=== PATIENT | female | born 1955 | race Caucasian/White ===

== ENCOUNTER 2023-07-05 16:48 | Inpatient (IN) ==
--- NOTE | 2023-07-05 17:07 | ED Triage Note ---
Date of Service July 05, 2023 History of Present Illness This patient was briefly evaluated while in triage. An abbreviated physical exam was performed. This patient is a 68-year-old Female who presents to the ED for evaluation of osteomyelitis. She was referred by Dr. Kelly. According to him, she had an x- ray of the right second toe showing osteomyelitis. She has failed Keflex and is currently on Levaquin/Bactrim. Patient states this has been ongoing for over a month. She is a diabetic. Physical Exam VITALS: Vitals are noted on the nurse's note and reviewed by myself. GENERAL: This is a 68-year-old for, in no acute distress, well-developed well- nourished. SKIN: Right foot not visualized in triage. HEART: Regular rate and rhythm without murmurs gallops or rubs. LUNGS: Clear to auscultation bilaterally without wheezes, rales or rhonchi. NEURO: Patient was alert and oriented to person place and time. Initial orders for labs and / or imaging were placed and patient was placed in the waiting area until a bed is available. Please see further documentation for the full ED course.
--- NOTE | 2023-07-05 17:39 | Emergency Department Note ---
Impression & Plan Osteomyelitis of right foot, Adrenal insufficiency, Factor V Leiden, Chronic anticoagulation ED Provider Note NAME: ELMER BENNETT AGE: 68 SEX: F : 1955 ARRIVES VIA: Walk-In INFORMANT: Patient, ED PROVIDER(S): Phani Rodrigues MD CHIEF COMPLAINT: Failed outpatient osteomyelitis MEDICAL DECISION MAKING: Patient presents at the behest of her accounting bookkeeper Dr. Kelly due to concern for failed outpatient osteomyelitis treatment. IV was established blood work was obtained patient was ordered vancomycin and cefepime. Procalcitonin as well as wound cultures also obtained. Lactate also obtained. Patient is awake and at 13 mild anemia hemoglobin of 11 with normal platelet count. The patient's kidney function with a creatinine 1.34. No prior for comparison. Lactate is normal. Procalcitonin is not elevated. I did speak with Dr. Kelly who stated the patient will likely have a toe amputation completed on Saturday. I did speak the on-call hospitalist service Dr. Schwartz and the patient was admitted to the medicine service. Discussion w/ other healthcare providers: Dr. Kelly with podiatry Dr. Schwartz with inpatient medicine Prior /Outside records reviewed: None Differential diagnosis: Osteomyelitis, cellulitis, necrotizing fasciitis, abscess, fracture, sprain, strain among others were considered Diagnostics, as interpreted by me: ECG: None Cardiac monitoring: An order was placed for continuous cardiac monitoring. The monitor shows a rate of 92 with sinus rhythm. Patient was placed on pulse oximetry Medical decision rules: None Imaging studies: I informally interpreted the patient's right foot x-ray which does not show obvious acute fracture with formal report to follow. HPI: Presents due to concern for failed outpatient osteomyelitis treatment. Patient denies any chest pains but does have chronic shortness of breath secondary to her weight. The patient states that she had been on outpatient antibiotics for approximately 20 days and recently switched yesterday but was seen by her accounting bookkeeper and was referred here for further evaluation treatment for failed outpatient treatment of osteomyelitis. Patient denies any fevers but has had some chills. Patient denies any vomiting or diarrhea. Patient states that she does have some chronic neuropathy but can still feel her toes. The patient states that she was seen earlier today and was able to have a swab that probe to the bone per patient. PAST MEDICAL HISTORY: Renal cell carcinoma, diabetes, factor V Leiden, DVT, adrenal insufficiency, HLD, HTN PAST SURGICAL HISTORY: Partial nephrectomy SOCIAL HISTORY: Denies alcohol tobacco use. Lives with family HOME MEDICATIONS: See Below ALLERGIES: See Below VITALS: See Below PHYSICAL EXAMINATION: GENERAL: NAD, non-toxic. BMI 65. Wearing glasses EYE EXAM: Normal conjunctiva. PERRL, no anisocoria and EOM's grossly intact w/o pain. OROPHARYNX: Moist mucus membranes, grossly normal dentition. NECK: Supple, no nuchal rigidity, no adenopathy, non-tender. No signs of meningismus. FROM of the neck with good chin to chest and neck extension. No stridor. LUNGS: Clear to auscultation. Normal chest wall mechanics. HEART: NSR, no MRG. ABDOMEN: Abdomen soft, non-tender, no masses, no rebound or guarding. BACK: No CVA TTP. SKIN: No rashes and no bruising. UPPER EXTREMITIES: Upper extremities are grossly normal. LOWER EXTREMITIES: Wound noted to the right second toe, no significant surrounding erythema, no fluctuance or active drainage. NEURO EXAM: A&O x3, cranial nerves II-XII grossly intact, normal speech, moves all 4 extremities. Past Med/Surg History Social History Smoking Status: Never smoker Preferred Language: Maltese Feels Safe at Home: Yes Allergies Allergies Allergy/AdvReac Type Severity Reaction Status Date / Time gluten Allergy Unknown Unknown Unverified 07/05/23 19:02 Home Meds Home Medications Medication Instructions Recorded Confirmed albuterol sulfate 90 mcg/actuation 2 puff inhalation .Q4-6H PRN Acute 07/05/23 07/05/23 aerosol inhaler Bronchospasm azelastine 137 mcg (0.1 %) nasal 1 spray intranasal BID 07/05/23 07/05/23 spray aerosol buspirone 10 mg tablet See Rx Instructions .Route .COMPLEX 07/05/23 07/05/23 cetirizine 10 mg tablet 10 mg PO DAILY 07/05/23 07/05/23 cholecalciferol (vitamin D3) 50 100 mcg PO DAILY 07/05/23 07/05/23 mcg (2,000 unit) tablet (Vitamin D3) ciprofloxacin HCl 500 mg tablet 500 mg PO BID 07/05/23 07/05/23 clomipramine 25 mg capsule 25 mg PO HS 07/05/23 07/05/23 famotidine 20 mg tablet 20 mg PO BID 07/05/23 07/05/23 furosemide 20 mg tablet 20 mg PO DAILY 07/05/23 07/05/23 gabapentin 300 mg capsule 300 mg PO TID 07/05/23 07/05/23 hydrocortisone 10 mg tablet 15 mg PO BID 07/05/23 07/05/23 insulin aspart U-100 100 unit/mL 0 - 50 unit subcut TID 07/05/23 07/05/23 subcutaneous solution (Novolog U-100 Insulin aspart) insulin degludec 100 unit/mL (3 30 unit subcut DAILY 07/05/23 07/05/23 mL) subcutaneous pen (Tresiba FlexTouch U-100 insulin) levothyroxine 175 mcg tablet 175 mcg PO QAM 07/05/23 07/05/23 lisinopril 40 mg tablet 40 mg PO DAILY 07/05/23 07/05/23 metoprolol tartrate 25 mg tablet 25 mg PO BID 07/05/23 07/05/23 omeprazole 40 mg capsule,delayed 40 mg PO DAILY 07/05/23 07/05/23 release potassium chloride 10 mEq 10 meq PO DAILY 07/05/23 07/05/23 tablet,extended release(part/cryst) semaglutide 0.25 mg or 0.5 mg (2 0.5 mg subcut WK 07/05/23 07/05/23 mg/3 mL) subcutaneous pen injector (Ozempic) simvastatin 40 mg tablet 40 mg PO HS 07/05/23 07/05/23 sulfamethoxazole 800 1 tab PO BID 07/05/23 07/05/23 mg-trimethoprim 160 mg tablet warfarin 2 mg tablet 2 mg PO DAILY 07/05/23 07/05/23 Results & Data (ED) Vital Signs Vital Signs - 24 hr 07/05/23 17:04 07/05/23 17:52 07/05/23 17:54 Temperature 36.8 C Temperature Source Temporal Artery Scan Pulse Rate 98 H 92 H 92 H Pulse Rate [Right Finger] Pulse Rate from SpO2 Sensor 93 H Pulse Rhythm [Right Finger] Pulse Strength [Right Finger] Respiratory Rate 19 15 Respiratory Effort / Characteristics Non-Labored Respiratory Depth Normal Respiratory Pattern Blood Pressure 148/66 H Blood Pressure [Right Arm] Blood Pressure Mean 93 Blood Pressure Mean [Right Arm] Blood Pressure Position [Right Arm] Pulse Oximetry 92 90 Oxygen Delivery Method Room Air Oxygen Flow Rate Sepsis Recent Fever Within 48 Hours No Sepsis New/Unexplained Change in Mental Status No Sepsis Action Taken by Nursing No Action Required Oxygen Flow Rate - Titration Pulse Oximetry Post Tiitration 07/05/23 17:55 07/05/23 18:00 07/05/23 18:01 Temperature Temperature Source Pulse Rate 93 H Pulse Rate [Right Finger] 92 H Pulse Rate from SpO2 Sensor 90 Pulse Rhythm [Right Finger] Regular Pulse Strength [Right Finger] Normal Respiratory Rate 30 H 26 H Respiratory Effort / Characteristics Non-Labored Spontaneous Respiratory Depth Normal Respiratory Pattern Regular Blood Pressure 152/74 H Blood Pressure [Right Arm] 143/88 H Blood Pressure Mean 99 Blood Pressure Mean [Right Arm] 106 Blood Pressure Position [Right Arm] Lying Pulse Oximetry 96 92 Oxygen Delivery Method Room Air Oxygen Flow Rate Sepsis Recent Fever Within 48 Hours Sepsis New/Unexplained Change in Mental Status Sepsis Action Taken by Nursing Oxygen Flow Rate - Titration Pulse Oximetry Post Tiitration 07/05/23 18:01 07/05/23 18:10 07/05/23 18:20 Temperature Temperature Source Pulse Rate 92 H 90 91 H Pulse Rate [Right Finger] Pulse Rate from SpO2 Sensor 93 H 90 91 H Pulse Rhythm [Right Finger] Pulse Strength [Right Finger] Respiratory Rate 21 24 19 Respiratory Effort / Characteristics Respiratory Depth Respiratory Pattern Blood Pressure Blood Pressure [Right Arm] Blood Pressure Mean Blood Pressure Mean [Right Arm] Blood Pressure Position [Right Arm] Pulse Oximetry 93 88 L 87 L Oxygen Delivery Method Room Air Room Air Oxygen Flow Rate Sepsis Recent Fever Within 48 Hours Sepsis New/Unexplained Change in Mental Status Sepsis Action Taken by Nursing Oxygen Flow Rate - Titration Pulse Oximetry Post Tiitration 07/05/23 18:24 07/05/23 18:30 07/05/23 18:31 Temperature Temperature Source Pulse Rate 87 90 Pulse Rate [Right Finger] Pulse Rate from SpO2 Sensor 85 89 Pulse Rhythm [Right Finger] Pulse Strength [Right Finger] Respiratory Rate 18 20 Respiratory Effort / Characteristics Respiratory Depth Respiratory Pattern Blood Pressure Blood Pressure [Right Arm] Blood Pressure Mean Blood Pressure Mean [Right Arm] Blood Pressure Position [Right Arm] Pulse Oximetry 87 L 100 97 Oxygen Delivery Method Room Air Nasal Cannula Nasal Cannula Oxygen Flow Rate 0 2 2 Sepsis Recent Fever Within 48 Hours Sepsis New/Unexplained Change in Mental Status Sepsis Action Taken by Nursing Oxygen Flow Rate - Titration 1.5 Pulse Oximetry Post Tiitration 98 07/05/23 18:31 07/05/23 18:40 07/05/23 18:50 Temperature Temperature Source Pulse Rate 94 H 91 H Pulse Rate [Right Finger] Pulse Rate from SpO2 Sensor 94 H 91 H Pulse Rhythm [Right Finger] Pulse Strength [Right Finger] Respiratory Rate 21 23 Respiratory Effort / Characteristics Respiratory Depth Respiratory Pattern Blood Pressure 149/70 H Blood Pressure [Right Arm] Blood Pressure Mean 110 Blood Pressure Mean [Right Arm] Blood Pressure Position [Right Arm] Pulse Oximetry 97 97 Oxygen Delivery Method Oxygen Flow Rate Sepsis Recent Fever Within 48 Hours Sepsis New/Unexplained Change in Mental Status Sepsis Action Taken by Nursing Oxygen Flow Rate - Titration Pulse Oximetry Post Tiitration 07/05/23 19:00 07/05/23 19:00 07/05/23 19:10 Temperature Temperature Source Pulse Rate 90 92 H Pulse Rate [Right Finger] Pulse Rate from SpO2 Sensor 92 H 91 H Pulse Rhythm [Right Finger] Pulse Strength [Right Finger] Respiratory Rate 23 28 H Respiratory Effort / Characteristics Respiratory Depth Respiratory Pattern Blood Pressure 155/68 H Blood Pressure [Right Arm] Blood Pressure Mean 108 Blood Pressure Mean [Right Arm] Blood Pressure Position [Right Arm] Pulse Oximetry 96 97 Oxygen Delivery Method Oxygen Flow Rate Sepsis Recent Fever Within 48 Hours Sepsis New/Unexplained Change in Mental Status Sepsis Action Taken by Nursing Oxygen Flow Rate - Titration Pulse Oximetry Post Tiitration 07/05/23 19:20 07/05/23 19:30 07/05/23 19:30 Temperature Temperature Source Pulse Rate 96 H 90 Pulse Rate [Right Finger] Pulse Rate from SpO2 Sensor 94 H 94 H Pulse Rhythm [Right Finger] Pulse Strength [Right Finger] Respiratory Rate 25 H 23 Respiratory Effort / Characteristics Respiratory Depth Respiratory Pattern Blood Pressure 150/74 H Blood Pressure [Right Arm] Blood Pressure Mean 113 Blood Pressure Mean [Right Arm] Blood Pressure Position [Right Arm] Pulse Oximetry 98 95 Oxygen Delivery Method Nasal Cannula Oxygen Flow Rate 2 Sepsis Recent Fever Within 48 Hours Sepsis New/Unexplained Change in Mental Status Sepsis Action Taken by Nursing Oxygen Flow Rate - Titration Pulse Oximetry Post Tiitration 07/05/23 19:40 07/05/23 19:50 07/05/23 20:00 Temperature Temperature Source Pulse Rate 96 H 95 H 98 H Pulse Rate [Right Finger] Pulse Rate from SpO2 Sensor 98 H 93 H 98 H Pulse Rhythm [Right Finger] Pulse Strength [Right Finger] Respiratory Rate 34 H 20 22 Respiratory Effort / Characteristics Respiratory Depth Respiratory Pattern Blood Pressure Blood Pressure [Right Arm] Blood Pressure Mean Blood Pressure Mean [Right Arm] Blood Pressure Position [Right Arm] Pulse Oximetry 88 L 92 94 Oxygen Delivery Method Nasal Cannula Oxygen Flow Rate 2 Sepsis Recent Fever Within 48 Hours Sepsis New/Unexplained Change in Mental Status Sepsis Action Taken by Nursing Oxygen Flow Rate - Titration Pulse Oximetry Post Tiitration 07/05/23 20:00 07/05/23 20:10 07/05/23 20:20 Temperature Temperature Source Pulse Rate 100 H 102 H Pulse Rate [Right Finger] Pulse Rate from SpO2 Sensor 99 H 101 H Pulse Rhythm [Right Finger] Pulse Strength [Right Finger] Respiratory Rate 24 18 Respiratory Effort / Characteristics Respiratory Depth Respiratory Pattern Blood Pressure 163/71 H Blood Pressure [Right Arm] Blood Pressure Mean 84 Blood Pressure Mean [Right Arm] Blood Pressure Position [Right Arm] Pulse Oximetry 95 93 Oxygen Delivery Method Oxygen Flow Rate Sepsis Recent Fever Within 48 Hours Sepsis New/Unexplained Change in Mental Status Sepsis Action Taken by Nursing Oxygen Flow Rate - Titration Pulse Oximetry Post Tiitration 07/05/23 20:30 07/05/23 20:31 07/05/23 20:31 Temperature Temperature Source Pulse Rate 97 H 99 H Pulse Rate [Right Finger] Pulse Rate from SpO2 Sensor 95 H 98 H Pulse Rhythm [Right Finger] Pulse Strength [Right Finger] Respiratory Rate 22 20 Respiratory Effort / Characteristics Respiratory Depth Respiratory Pattern Blood Pressure 155/59 H Blood Pressure [Right Arm] Blood Pressure Mean 84 Blood Pressure Mean [Right Arm] Blood Pressure Position [Right Arm] Pulse Oximetry 92 Oxygen Delivery Method Nasal Cannula Oxygen Flow Rate 2 Sepsis Recent Fever Within 48 Hours Sepsis New/Unexplained Change in Mental Status Sepsis Action Taken by Nursing Oxygen Flow Rate - Titration Pulse Oximetry Post Tiitration 07/05/23 20:40 07/05/23 20:50 07/05/23 21:00 Temperature Temperature Source Pulse Rate 99 H 99 H Pulse Rate [Right Finger] 111 H Pulse Rate from SpO2 Sensor 98 H 103 H Pulse Rhythm [Right Finger] Regular Pulse Strength [Right Finger] Normal Respiratory Rate 25 H 22 20 Respiratory Effort / Characteristics Non-Labored Spontaneous Respiratory Depth Normal Respiratory Pattern Blood Pressure Blood Pressure [Right Arm] 159/72 H Blood Pressure Mean Blood Pressure Mean [Right Arm] 101 Blood Pressure Position [Right Arm] Lying Pulse Oximetry 92 92 92 Oxygen Delivery Method Nasal Cannula Nasal Cannula Oxygen Flow Rate 2 2 Sepsis Recent Fever Within 48 Hours Sepsis New/Unexplained Change in Mental Status Sepsis Action Taken by Nursing Oxygen Flow Rate - Titration Pulse Oximetry Post Tiitration 07/05/23 21:00 07/05/23 21:01 07/05/23 21:10 Temperature Temperature Source Pulse Rate 101 H 103 H 100 H Pulse Rate [Right Finger] Pulse Rate from SpO2 Sensor 100 H Pulse Rhythm [Right Finger] Pulse Strength [Right Finger] Respiratory Rate 25 H 24 26 H Respiratory Effort / Characteristics Respiratory Depth Respiratory Pattern Blood Pressure 123/46 L Blood Pressure [Right Arm] Blood Pressure Mean 71 Blood Pressure Mean [Right Arm] Blood Pressure Position [Right Arm] Pulse Oximetry 93 Oxygen Delivery Method Oxygen Flow Rate Sepsis Recent Fever Within 48 Hours Sepsis New/Unexplained Change in Mental Status Sepsis Action Taken by Nursing Oxygen Flow Rate - Titration Pulse Oximetry Post Tiitration 07/05/23 21:20 07/05/23 21:30 07/05/23 21:40 Temperature Temperature Source Pulse Rate 102 H 106 H 117 H Pulse Rate [Right Finger] Pulse Rate from SpO2 Sensor 103 H Pulse Rhythm [Right Finger] Pulse Strength [Right Finger] Respiratory Rate 24 29 H 26 H Respiratory Effort / Characteristics Respiratory Depth Respiratory Pattern Blood Pressure 159/72 H Blood Pressure [Right Arm] Blood Pressure Mean 101 Blood Pressure Mean [Right Arm] Blood Pressure Position [Right Arm] Pulse Oximetry 93 Oxygen Delivery Method Oxygen Flow Rate Sepsis Recent Fever Within 48 Hours Sepsis New/Unexplained Change in Mental Status Sepsis Action Taken by Nursing Oxygen Flow Rate - Titration Pulse Oximetry Post Tiitration 07/05/23 21:50 07/05/23 21:52 07/05/23 22:00 Temperature Temperature Source Pulse Rate 110 H 107 H 114 H Pulse Rate [Right Finger] Pulse Rate from SpO2 Sensor Pulse Rhythm [Right Finger] Pulse Strength [Right Finger] Respiratory Rate 21 30 H Respiratory Effort / Characteristics Respiratory Depth Respiratory Pattern Blood Pressure Blood Pressure [Right Arm] Blood Pressure Mean Blood Pressure Mean [Right Arm] Blood Pressure Position [Right Arm] Pulse Oximetry 94 Oxygen Delivery Method Nasal Cannula Oxygen Flow Rate 2 Sepsis Recent Fever Within 48 Hours Sepsis New/Unexplained Change in Mental Status Sepsis Action Taken by Nursing Oxygen Flow Rate - Titration Pulse Oximetry Post Tiitration 07/05/23 22:10 Temperature Temperature Source Pulse Rate 112 H Pulse Rate [Right Finger] Pulse Rate from SpO2 Sensor Pulse Rhythm [Right Finger] Pulse Strength [Right Finger] Respiratory Rate 27 H Respiratory Effort / Characteristics Respiratory Depth Respiratory Pattern Blood Pressure Blood Pressure [Right Arm] Blood Pressure Mean Blood Pressure Mean [Right Arm] Blood Pressure Position [Right Arm] Pulse Oximetry 94 Oxygen Delivery Method Nasal Cannula Oxygen Flow Rate 2 Sepsis Recent Fever Within 48 Hours Sepsis New/Unexplained Change in Mental Status Sepsis Action Taken by Nursing Oxygen Flow Rate - Titration Pulse Oximetry Post Tiitration Home Medications Current Medication List: was personally reviewed by md Laboratory Data Attestation: I reviewed the patient's lab results. 07/05/23 18:03 07/05/23 18:03 Lab Results 07/05/23 07/05/23 07/05/23 Range/Units 18:03 18:05 21:46 WBC 13.52 H (4.8-10.8) K/ul RBC 3.77 L (4.20-5.40) M/uL Hgb 11.2 L (12.0-16.0) g/dl Hct 35.5 L (37.0-47.0) % MCV 94.2 (80.0-100.0) fL MCH 29.7 (25.0-34.0) pg MCHC 31.5 L (32.0-36.0) g/dL RDW Std Deviation 46.5 H (36.4-46.3) fL RDW Coeff of Milad 13.7 (11.5-14.5) % Plt Count 381 (130-400) K/uL MPV 9.1 L (9.4-12.4) fL Immature Gran % (Auto) 0.5 % Neut % (Auto) 79.3 % Lymph % (Auto) 9.1 % [place] % (Auto) 8.1 % Eos % (Auto) 2.5 % Baso % (Auto) 0.5 % Neut # (Auto) 10.71 H (1.40-6.50) K/uL Lymph # (Auto) 1.23 (1.20-3.40) K/uL [place] # (Auto) 1.10 H (0.11-0.59) K/uL Eos # (Auto) 0.34 (0.00-0.50) K/uL Baso # (Auto) 0.07 (0.00-0.20) K/uL Immature Gran # (Auto) 0.07 (0.01-0.20) K/uL PT 14.1 H (9.0-12.0) Seconds INR 1.3 H (0.9-1.1) APTT 26.5 (21.0-31.0) Seconds PTT Ratio 0.9 Sodium 134 L (136-145) mmol/L Potassium 4.6 (3.5-5.1) mmol/L Chloride 100 (98-107) mmol/L Carbon Dioxide 28 (21-32) mmol/L Anion Gap 6 (3-11) BUN 37 H (6-23) mg/dl Creatinine 1.34 H (0.6-1.2) mg/dl Est Cr Clr Drug Dosing 49.9 ml/min Est GFR ( Amer) 46.4 ml/min Est GFR (Non-Af Amer) 40.0 ml/min BUN/Creatinine Ratio 27.6 H (10-20) Glucose 143 H (70-99(Fasting)) mg/dl POC Glucose 171 H (70-99) mg/dl Lactate 1.6 (0.4-2.0) mmol/L Calcium 9.0 (8.6-10.3) mg/dl Total Bilirubin 0.2 (0.2-1.0) mg/dl AST 15 (13-39) U/L ALT 15 (7-52) U/L Alkaline Phosphatase 49 (34-104) U/L Total Protein 7.5 (6.0-8.3) gm/dl Albumin 3.6 (3.4-5.0) gm/dl Globulin 3.9 (2.5-4.0) gm/dl Albumin/Globulin Ratio 0.9 (0.9-2) Procalcitonin 0.12 (0-0.5) ng/ml Administered Medications Insulin Aspart (Insulin Aspart Per Unit Charge) 0 units SC ACHS LIBBY Stop: 08/04/23 20:59 Last Admin: 07/05/23 22:24 Dose: 3 units Documented By: HAIR SAMPLE MATCHER Co-signed By: Insulin Glargine (Lantus Per Unit Charge) 15 units SQ BID LIBBY Stop: 08/04/23 20:59 Last Admin: 07/05/23 22:23 Dose: 15 units Documented By: RONI Co-signed By: Discontinued Medications Vancomycin HCl 2,750 mg/ (Sodium Chloride) 555 mls @ 200 mls/hr IV NOW ONE Stop: 07/05/23 20:51 Last Infusion: 07/05/23 21:42 Dose: Infused Documented By: Admin: 07/05/23 18:29 Dose: 200 mls/hr Documented By: PARAG Cefepime HCl (Maxipime) 2,000 mg in 20 mls @ 5 mls/min IV NOW STA; Protocol Stop: 07/05/23 18:08 Last Admin: 07/05/23 18:29 Dose: 5 mls/min Documented By: PARAG Imaging Data Radiologist's Impression: Foot X-Ray 07/05/23 17:08 XR foot RT min 3V routine HISTORY: 68 years-old Female right second toe infection acute right foot pain COMPARISON: None TECHNIQUE: 3 views of the right foot FINDINGS: Demineralized appearance of the bones. Bipartite lateral hallux sesamoid. Limited exam secondary to overlying casting material. Chronic appearing fifth metatarsal fracture. Age-indeterminate likely chronic articular erosions involve the mid to lateral aspects of the first interphalangeal joint. Subtle bony defect involves the distal aspect of the second distal phalanx. Mild soft tissue swelling of the foot. IMPRESSION: 1. Limited exam secondary to overlying casting material. 2. Age-indeterminate osseous erosions of the first interphalangeal joint and second distal phalangeal tuft. Correlate clinically to exclude osteomyelitis. 3. Healed chronic fracture deformity of the fifth metatarsal. ACT 112: Negative or not required by law. The above report was generated using voice recognition software. It may contain grammatical, syntax or spelling errors. Electronically signed by: Bogdan Mullen M.D. 07/05/2023 6:58 PM Discharge Plan Visit Data Chief Complaint: Referred by Doctor Stated Complaint: SURGRY ON TOE, RT FOOT ED Provider: Phani Rodrigues Discharge Problem: Osteomyelitis of right foot, Adrenal insufficiency, Factor V Leiden, Chronic anticoagulation Patient Disposition: Admitted As Inpatient Discharge Instructions Interventions: ED Discharge Assessment Last Done: 07/05/23 22:10 Prescriptions Prescriptions: No Action levothyroxine 175 mcg tablet 175 mcg PO QAM cetirizine 10 mg tablet 10 mg PO DAILY ciprofloxacin HCl 500 mg tablet 500 mg PO BID Rx Instructions: Prescription was picked up on 07/04/23. Start Date 07/04/23 - End Date 07/11/23 sulfamethoxazole-trimethoprim 800-160 mg tablet 1 tab PO BID Rx Instructions: Prescription was picked up on 07/04/23. Start Date 07/04/23 - End Date 07/14/23 omeprazole 40 mg capsule,delayed release(DR/EC) 40 mg PO DAILY simvastatin 40 mg tablet 40 mg PO HS famotidine 20 mg tablet 20 mg PO BID buspirone 10 mg tablet See Rx Instructions .ROUTE .COMPLEX Rx Instructions: Take 10mg in the morning, 10mg in the afternoon and 20mg at bedtime warfarin 2 mg tablet 2 mg PO DAILY gabapentin 300 mg capsule 300 mg PO TID hydrocortisone 10 mg tablet 15 mg PO BID Rx Instructions: Takes 15 mg in the am and 5 mg HS azelastine 137 mcg (0.1 %) aerosol,spray 1 spray INTRANASAL BID albuterol sulfate 90 mcg/actuation HFA aerosol inhaler 2 puff INHALATION .Q4-6H PRN (Reason: Acute Bronchospasm) clomipramine 25 mg capsule 25 mg PO HS lisinopril 40 mg tablet 40 mg PO DAILY potassium chloride 10 mEq tablet,ER particles/crystals 10 meq PO DAILY metoprolol tartrate 25 mg tablet 25 mg PO BID cholecalciferol (vitamin D3) [Vitamin D3] 50 mcg (2,000 unit) Tablet 100 mcg PO DAILY insulin degludec [Tresiba FlexTouch U-100] 100 unit/mL (3 mL) insulin pen 30 unit SUBCUT DAILY Ozempic 0.25 mg or 0.5 mg (2 mg/3 mL) pen injector 0.5 mg SUBCUT WK insulin aspart U-100 [Novolog U-100 Insulin aspart] 100 unit/mL Solution 0 - 50 unit subcut TID Rx Instructions: 17units before breakfast, 17 units before lunch and 12 units before dinner per sliding scale furosemide 20 mg tablet 20 mg PO DAILY Discharge Problem: Osteomyelitis of right foot Qualifiers: Osteomyelitis type: unspecified type Qualified Code(s): M86.9 - Osteomyelitis, unspecified
[2023-07-05] MEDS ORDERED: VANCOMYCIN CONSULT ACTIVE PRN (18:05)
[2023-07-05] MEDS ORDERED: VANCOMYCIN HCL 2,750 MG in SODIUM CHLORIDE 0.9% 500 ML IV ONE (18:05)
[2023-07-05] MEDS ORDERED: CEFEPIME 2,000 MG/20 ML VIAL IV STA (18:05)
[2023-07-05 18:27] LABS: Basophils # (auto) 0.07 K/uL (0.00-0.20); Basophils % (auto) 0.5 %; Eosinophils # (auto) 0.34 K/uL (0.00-0.50); Eosinophils % (auto) 2.5 %; Hematocrit (blood only) 35.5 % (37.0-47.0); Hemoglobin 11.2 g/dl (12.0-16.0); Immature Granulocytes # (auto) 0.07 K/uL (0.01-0.20); Immature Granulocytes % (auto) 0.5 %; Lymphocytes # (auto) 1.23 K/uL (1.20-3.40); Lymphocytes % (auto) 9.1 %; Mean Corpuscular Hemoglobin 29.7 pg (25.0-34.0); Mean Corpuscular Hgb Conc 31.5 g/dL (32.0-36.0); Mean Corpuscular Volume 94.2 fL (80.0-100.0); Mean Platelet Volume 9.1 fL (9.4-12.4); Monocytes % (auto) 8.1 %; Neutrophils # (auto) 10.71 K/uL (1.40-6.50); Neutrophils % (auto) 79.3 %; Platelet Count 381 K/uL (130-400); RDW Coefficient of Variation 13.7 % (11.5-14.5); RDW Standard Deviation 46.5 fL (36.4-46.3); Red Blood Count 3.77 M/uL (4.20-5.40); White Blood Count 13.52 K/ul (4.8-10.8)
[2023-07-05 18:34] LABS: Albumin Globulin Ratio 0.9 (0.9-2); Albumin Level 3.6 gm/dl (3.4-5.0); BUN Creatinine Ratio 27.6 (10-20); Bilirubin,Total 0.2 mg/dl (0.2-1.0); Creatinine Clr Calc Pharmacy 49.9 ml/min; Est GFR (African American) 46.4 ml/min; Globulin 3.9 gm/dl (2.5-4.0); Potassium 4.6 mmol/L (3.5-5.1); Total Protein 7.5 gm/dl (6.0-8.3)
--- NOTE | 2023-07-05 19:00 | XRay Report ---
XR foot RT min 3V routine HISTORY: 68 years-old Female right second toe infection acute right foot pain COMPARISON: None TECHNIQUE: 3 views of the right foot FINDINGS: Demineralized appearance of the bones. Bipartite lateral hallux sesamoid. Limited exam secondary to o verlying casting material. Chronic appearing fifth metatarsal fracture. 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 Subtle bony defect involves the distal aspect of the second distal phalanx. Mild soft tissue swelling of the foot. IMPRESSION: 1. Limited exam secondary to overlying casting material. 2. Age-indeterminate osseous erosions of the first interphalangeal joint and second distal phalangeal tuft. Correlate clinically to exclude osteomyelitis. 3. Healed chronic fracture deformity of the fifth metatarsal. ACT 112: Negative or not required by law. The above report was generated using voice recognition software. It may contain grammatical, syntax o r spelling errors. Electronically signed by: Bogdan Mullen M.D. 07/05/2023 6:58 PM
--- NOTE | 2023-07-05 19:18 | History & Physical Report ---
Date of Service July 05, 2023 Assessment & Plan (1) Osteomyelitis of right foot: Plan: -Admit to med/tele -Currently stable and non-toxic appearing -Was sent to the ED by Dr. Whitaker for failed outpatient treatment of right first and second toes -Consulted and spoke with Dr. Kelly, appreciate his help, plan is to take the patient to the OR the morning of 07/07 >Dr. Kelly obtained wound cultures in the Clinic, will be uploading them to [facility]. -S/P vancomycin and cefepime in the ED, will continue both for now -Blood cultures obtained in the ED -Transitioning patient to heparin drip, which can be held prior to OR -Will obtain CXR, ECG, and TTE for further evaluation for adequate cardiovascular risk assessment -HH/DMII diet with 2gm sodium and 1800 mL fluid restrictions -AM CBC, CMP, Mag, PT/INR (2) Hypoxia: Plan: -Patient intermittently hypoxic in the ED and during my exam -States she has been having increased non-productive cough -Likely multifactorial including obesity hypoventilation syndrome -No respiratory distress -Will obtain CXR, full resp biofire, and TTE tomorrow for further evaluation -Incentive spirometry, prn albuterol, flutter valave, prn O2 to keep SpO2 at or above 94% (3) Adrenal insufficiency: Plan: -Patient is on 15 mg PO hydrocortisone in am and 5 HS -Will have to continue systemic steroids at this time despite infection to prevent adrenal crisis -Patient should receive her normal am dose of glucocorticoids, along with approximately 50 mg hydrocortisone intravenously just before the procedure and 25 mg of hydrocortisone everyeight hours for 24 hours. (Has not been ordered yet to prevent confusion) (4) Factor V Leiden: Plan: -Hx of previous DVT/PE 30+ years ago -Normally on Warfarin -Hold Warfain with OR on 07/07 -Will obtain PT/INR/aptt -Spoke with pharmacy regarding anticoagulation, appreciate their help >Will transition to Wt based heparin drip w/bolus which can be stopped prior to OR -Patient will need to be bridged back to Warfarin on discharge (5) Mass of left thigh: Plan: -Patient with large mass/pocket in the left upper thigh -Patient and state that it frequently drains -Will obtain US for further evaluation and to rule out possible abscess/concerning mass (6) HTN (hypertension): Plan: -Stable -Continue metoprolol and lisinopril (7) Hyponatremia: Plan: -Sodium today is 134 -Unsure of baseline -Volume status very difficult to assess due to body habitus but examines as approximately Euvolemic -Will hold IV fluids at this time, continue current medications and monitor am sodium level for now -If not improving/progressing would continue workup (8) DM II (diabetes mellitus, type II), controlled: Plan: -Monitor BSG ACHS, goal is 110-140 with OR in near future -Normally takes 30 units HS Tresiba, with sliding scale, Ozempic -Will start 15 units Lantus BID, CF of 30, and CR of 10 -Patient is on chronic Hydrocortisone adrenal insufficiency -DMII/HH diet -Pharmacy glycemic consult placed (9) JACLYN (obstructive sleep apnea): Plan: -Patient no longer compliant as the masks do not fit her -Prn O2 (10) Liver fibrosis: Plan: -Follows with [facility] Hepatology -LFT's WNL today -Continue to monitor liver function (11) Hypothyroidism: Plan: -Continue levothyroxine (12) Anxiety: Plan: -Continue buspar and Clompiramine Plan The patient was discussed with Dr. Schwartz at the time of the admission History of Present Illness Chief Complaint: Failed outpatient OM treatment Primary Care Provider: Robby Kelly DPM, MS Kelly is a 68 yr old female with a PMH significant for severe obesity, Factor 5 Leiden, previous DVT/PE (On chronic Wafarin therapy), DMII, stage 4 liver fibrosis, adrenal insufficiency, JACLYN (No longer compliant with CPAP), hypothyroidism, HTN, who presented to the [facility] ED at the recommendation of her Lpn Per Diem (Dr. Kelly), due to failed outpatient treatment of right first and second toe OM. She remained stable in the ED. Labs were significant for a leukocytosis of 13 with neutrophil predominance of 10, cr of 1.34 (unsure of previous baseline), sodium of 134, and procal of 0.12. Xray of the right foot was read as "1. Limited exam secondary to overlying casting material. 2. Age- indeterminate osseous erosions of the first interphalangeal joint and second distal phalangeal tuft. Correlate clinically to exclude osteomyelitis. 3. Healed chronic fracture deformity of the fifth metatarsal. ". Prior to admission the patient was given a dose of vancomycin and cefepime. The ED staff spoke with Dr. Kelly who is planning on taking the patient to the OR for toe amputation on 07/07. At the time of the exam the patient was sitting in bed in no acute distress with her sitting bedisde, history was obtained from both. The patient explains that she follows with Dr. Kelly outpatient. He has been treating her for OM of the right first and second toes over the past month. The patient has diabetic neuropathy in her BL LE's and noticed small wounds on the right first/second toes approximately 3-4 weeks ago. She has been tried on multiple oral antibiotics over this time and was recently switched to PO Ciprofloxacin and Bactrim. Dr. Kelly saw her in the office today for follow-up and explained that he will need to take her to the OR for likely amputation of both toes. She denies recent fever, chest pain, abd pain, nausea, vomiting, diarrhea, dysuria, hematuria, melena, and recent trauma. We took extra time to discuss her PMH as she is new to our system and we have no information on her. She confirms that she has a history of adrenal insufficiency and requires stress-dosed steroids prior to surgeries. She explains that she has been on Warfarin for 30+ years due to factor 5 leiden and previous DVT/PE. I called and spoke to her daughter to obtain more information. Her daughter explains that the patient follows with [facility] Hepatology and is diagnosed with stage 3-4 Liver fibrosis but has not been diagnosed with cirrhosis to this point. The patient confirms a diagnosis of JACLYN and used to use HS CPAP but can no longer tolerate the masks. I explained that she will be higher risk for surgery due to her complex PMH so we will need to do further assessment/evaluation prior to going to the OR. We discussed code status, the patient expresses that she wishes to be a full code. Please refer to Dr. Schwartz's attestation for any changes to the treatment plan Allergies Allergy/AdvReac Type Severity Reaction Status Date / Time gluten Allergy Unknown Unknown Unverified 07/05/23 19:02 Home Medications Medication Instructions Recorded Confirmed Type albuterol sulfate 90 mcg/actuation 2 puff inhalation .Q4-6H PRN Acute 07/05/23 07/05/23 History aerosol inhaler Bronchospasm azelastine 137 mcg (0.1 %) nasal 1 spray intranasal BID 07/05/23 07/05/23 History spray aerosol buspirone 10 mg tablet See Rx Instructions .Route .COMPLEX 07/05/23 07/05/23 History cetirizine 10 mg tablet 10 mg PO DAILY 07/05/23 07/05/23 History cholecalciferol (vitamin D3) 50 100 mcg PO DAILY 07/05/23 07/05/23 History mcg (2,000 unit) tablet (Vitamin D3) ciprofloxacin HCl 500 mg tablet 500 mg PO BID 07/05/23 07/05/23 History clomipramine 25 mg capsule 25 mg PO HS 07/05/23 07/05/23 History famotidine 20 mg tablet 20 mg PO BID 07/05/23 07/05/23 History furosemide 20 mg tablet 20 mg PO DAILY 07/05/23 07/05/23 History gabapentin 300 mg capsule 300 mg PO TID 07/05/23 07/05/23 History hydrocortisone 10 mg tablet 15 mg PO BID 07/05/23 07/05/23 History insulin aspart U-100 100 unit/mL 0 - 50 unit subcut TID 07/05/23 07/05/23 History subcutaneous solution (Novolog U-100 Insulin aspart) insulin degludec 100 unit/mL (3 30 unit subcut DAILY 07/05/23 07/05/23 History mL) subcutaneous pen (Tresiba FlexTouch U-100 insulin) levothyroxine 175 mcg tablet 175 mcg PO QAM 07/05/23 07/05/23 History lisinopril 40 mg tablet 40 mg PO DAILY 07/05/23 07/05/23 History metoprolol tartrate 25 mg tablet 25 mg PO BID 07/05/23 07/05/23 History omeprazole 40 mg capsule,delayed 40 mg PO DAILY 07/05/23 07/05/23 History release potassium chloride 10 mEq 10 meq PO DAILY 07/05/23 07/05/23 History tablet,extended release(part/cryst) semaglutide 0.25 mg or 0.5 mg (2 0.5 mg subcut WK 07/05/23 07/05/23 History mg/3 mL) subcutaneous pen injector (Ozempic) simvastatin 40 mg tablet 40 mg PO HS 07/05/23 07/05/23 History sulfamethoxazole 800 1 tab PO BID 07/05/23 07/05/23 History mg-trimethoprim 160 mg tablet warfarin 2 mg tablet 2 mg PO DAILY 07/05/23 07/05/23 History Past Med/Surg History Medical History (Updated 07/07/23 @ 14:05 by Shila Fowler MD) CKD (chronic kidney disease) stage 3, GFR 30-59 ml/min RVF (right ventricular failure) Social History Smoking Status: Never smoker Hx Alcohol Use: No Hx Substance Use: No Preferred Language: Faroese Communication Ability: Effective Thread Checker Required: No Beliefs That Will Affect Care: None Current Living Situation: Spouse Other Information That Helps Us Care for You: No Feels Safe at Home: Yes Safety Concerns: Feels Safe At This Time Assistive Devices: Walker Physical Exam Physical Exam: Physical Exam: General: In no acute distress, stated age, severely obese, non-toxic appearing HEENT: Normocephalic, atraumatic, no scleral icterus, pupils around round, symmetrical, and reactive to light, moist mucus membranes, trachea midline, no thyromegaly Chest/Pulm: No respiratory distress, symmetrical inspiration, decreased breath sounds throughout due to body habitus Cardiac: RRR, 3/6 systolic murmur noted Abdomen: Significantly obese abdomen, normoactive bowel sounds, soft, and non-tender to palpation throughout Musculoskeletal: Symmetrical and without signs of acute trauma, upper and lower extremities with full ROM, no atrophy, spasticity, or flaccidity Extremities: patient with signs of chronic venous insufficiency in the BL LE's with significant chronic swelling in the BL LE"s, large mass/growth in the upper left thigh without active drainage, distal pulse are difficult to palpate due to BL LE stockings and body habitus, but BL LE's are warm with < 3 sec cap refill Skin: Patient with chronic wounds on the dorsal aspect of the distal right 2nd toe and medial aspect of the right first toe Neuro: Alert and oriented to person, place, month, year, and president, no focal defects, no tremors noted Psych: No acute distress, calm and cooperative during the exam Results & Data Results & Data Vital Signs (Past 12 Hours) Vital Signs Temp Pulse Pulse Resp BP BP Pulse Ox 07/05/23 18:24 87 L 07/05/23 17:55 92 H 30 H 143/88 H 96 07/05/23 17:54 92 H 07/05/23 17:04 36.8 C 98 H 19 148/66 H 92 O2 Del Method O2 Flow Rate 07/05/23 18:24 Room Air 0 07/05/23 17:55 Room Air 07/05/23 17:54 07/05/23 17:04 Room Air Laboratory Results Abnormal lab results 07/05/23 Range/Units 18:03 WBC 13.52 H (4.8-10.8) K/ul RBC 3.77 L (4.20-5.40) M/uL Hgb 11.2 L (12.0-16.0) g/dl Hct 35.5 L (37.0-47.0) % MCHC 31.5 L (32.0-36.0) g/dL RDW Std Deviation 46.5 H (36.4-46.3) fL MPV 9.1 L (9.4-12.4) fL Neut # (Auto) 10.71 H (1.40-6.50) K/uL Levy # (Auto) 1.10 H (0.11-0.59) K/uL Sodium 134 L (136-145) mmol/L BUN 37 H (6-23) mg/dl Creatinine 1.34 H (0.6-1.2) mg/dl BUN/Creatinine Ratio 27.6 H (10-20) Glucose 143 H (70-99(Fasting)) mg/dl Diagnostic Findings Foot X-Ray 07/05/23 17:08 XR foot RT min 3V routine HISTORY: 68 years-old Female right second toe infection acute right foot pain COMPARISON: None TECHNIQUE: 3 views of the right foot FINDINGS: Demineralized appearance of the bones. Bipartite lateral hallux sesamoid. Limited exam secondary to overlying casting material. Chronic appearing fifth metatarsal fracture. Age-indeterminate likely chronic articular erosions involve the mid to lateral aspects of the first interphalangeal joint. Subtle bony defect involves the distal aspect of the second distal phalanx. Mild soft tissue swelling of the foot. IMPRESSION: 1. Limited exam secondary to overlying casting material. 2. Age-indeterminate osseous erosions of the first interphalangeal joint and second distal phalangeal tuft. Correlate clinically to exclude osteomyelitis. 3. Healed chronic fracture deformity of the fifth metatarsal. ACT 112: Negative or not required by law. The above report was generated using voice recognition software. It may contain grammatical, syntax or spelling errors. Electronically signed by: Bogdan Mullen M.D. 07/05/2023 6:58 PM ECG Additional Comments: Obtaining ECG on admission Code Status & VTE Plan Code Status Full code VTE Prophylaxis Plan VTE Prophylaxis will be ordered: Yes Supervising Physician Co-Signing Physician Notes Patient seen and examined, chart reviewed, case discussed with CAN Pearson and I agree with the assessment and plan as documented above. In brief, patient is a 68yo female with osteomyelitis of the right foot. Plan for OR on 07/07/23 On exam she is afebrile, HD stable and non-toxic in appearance, super-obesity NC/AT, PERRL, MMM, neck supple Heart - +S1/S2, regular Lungs - CTA Abd - soft, NT/NT Ext - warm, well perfused, diminished pulses in bilateral LE, chronic venous insufficiency with edema and chronic skin changes, thickening, area of fluctuance in right inner thigh, ?redundant tissue vs drainable collection, chronic wounds Labs and images reviewed Assessment/Plan Osteomyelitis of right foot -Continue IV antibiotics - Vancomycin and Cefepime -Heparin gtt -Ortho consultation appreciated -Remainder of plan as above PG Care Time/CCT Total # of Minutes Spent Total Time Spent with Patient: Total time spent is greater than 50% in coordination of care (as documented) at patient's floor/unit and/or counseling patient: [place] [address] INT INP/OBS CARE 3/75MIN Patient Type New Medical Decision Making High Complexity Diagnoses Osteomyelitis of right foot M86.9 Hypoxia R09.02 Adrenal insufficiency E27.40 Factor V Leiden D68.51 Mass of left thigh R22.42 HTN (hypertension) I10 Hyponatremia E87.1 DM II (diabetes mellitus, type II), controlled E11.9 JACLYN (obstructive sleep apnea) G47.33 Liver fibrosis K74.00 Hypothyroidism E03.9 Anxiety F41.9
[2023-07-05] MEDS ORDERED: PHARMACY GLYCEMIC MGMT CONSULT PRN (20:11)
[2023-07-05] MEDS ORDERED: CARBOHYDRATES FOR HYPOGLYCEMIA PO PRN (20:11)
[2023-07-05] MEDS ORDERED: GLUCAGON FOR INJ 1 MG VIAL SQ PRN (20:11)
[2023-07-05] MEDS ORDERED: GLUCOSE 40% GEL 15 GM TUBE PO PRN (20:11)
[2023-07-05] MEDS ORDERED: GLUCOSE 10 TAB/TUBE PO PRN (20:11)
[2023-07-05] MEDS ORDERED: DEXTROSE 50% 50 ML SYRINGE IV PRN (20:11)
[2023-07-05] MEDS ORDERED: Heparin IV Adult Wt-Based Standard WITH Bolus Protocol IV STA (20:17)
[2023-07-05 20:59] LABS: INR 1.3 (0.9-1.1); Partial Thromboplastin Ratio 0.9; Partial Thromboplastin Time 26.5 Seconds (21.0-31.0); Prothrombin Time 14.1 Seconds (9.0-12.0)
[2023-07-05] MEDS ORDERED: HEPARIN SOD (PORCINE) 1000 UNIT/ML IV ONE (21:45)
[2023-07-05] MEDS: LANTUS PER UNIT CHARGE SQ SCH (22:23)
[2023-07-05] MEDS: INSULIN ASPART PER UNIT CHARGE SC SCH (22:24)
[2023-07-05] MEDS ORDERED: ALBUTEROL HFA 8 GM INHALER INH PRN (23:09)
[2023-07-05] MEDS: HEPARIN SODIUM/DEXTROSE 25,000 UNITS/500 ML BAG IV SCH (23:21)
[2023-07-06] MEDS: HYDROCORTISONE 10 MG TAB PO SCH ×3 (00:19→20:16)
[2023-07-06] MEDS: busPIRone 5 MG TAB PO SCH ×4 (00:20→20:14)
[2023-07-06] MEDS: SIMVASTATIN 40 MG TAB PO SCH ×2 (00:21→20:17)
[2023-07-06] MEDS: METOPROLOL TARTRATE 25 MG TAB PO SCH ×3 (00:22→20:17)
[2023-07-06] MEDS: FAMOTIDINE 20 MG TAB PO SCH ×3 (00:23→20:18)
[2023-07-06] MEDS: GABAPENTIN 300 MG CAP PO SCH ×4 (00:23→22:07)
[2023-07-06] MEDS: ACETAMINOPHEN 325 MG TAB PO PRN (03:13)
[2023-07-06] MEDS: CEFEPIME 2,000 MG in SYRINGE 0 ML IV SCH ×2 (05:15→17:20)
[2023-07-06] MEDS: LEVOTHYROXINE SODIUM 175 MCG TABLET PO SCH (05:16)
[2023-07-06 07:48] LABS: Basophils # (auto) 0.05 K/uL (0.00-0.20); Basophils % (auto) 0.3 %; Hematocrit (blood only) 32.8 % (37.0-47.0); Immature Granulocytes # (auto) 0.07 K/uL (0.01-0.20); Immature Granulocytes % (auto) 0.5 %; Lymphocytes # (auto) 0.72 K/uL (1.20-3.40); Lymphocytes % (auto) 4.8 %; Mean Corpuscular Hgb Conc 30.5 g/dL (32.0-36.0); Mean Corpuscular Volume 95.1 fL (80.0-100.0); Mean Platelet Volume 9.4 fL (9.4-12.4); Monocytes # (auto) 0.85 K/uL (0.11-0.59); Monocytes % (auto) 5.6 %; Neutrophils # (auto) 13.06 K/uL (1.40-6.50); Neutrophils % (auto) 86.8 %; Platelet Count 379 K/uL (130-400); RDW Standard Deviation 48.9 fL (36.4-46.3); Red Blood Count 3.45 M/uL (4.20-5.40); White Blood Count 15.05 K/ul (4.8-10.8)
--- NOTE | 2023-07-06 07:57 | Hospitalist Progress Note ---
Date of Service July 06, 2023 Assessment & Plan (1) Osteomyelitis of right foot: Plan: -Was sent to the ED by Dr. Kelly for failed outpatient treatment of right first and second toes -Consulted and spoke with Dr. Kelly, appreciate his help, plan is to take the p atient to the OR the morning of 07/07 >Dr. Kelly obtained wound cultures in the Clinic, will be uploading them to Sc[facility]-t - continue vancomycin and cefepime -Blood cultures obtained in the ED - warfarin held for surgical procedure, bridging with heparin drip. Reviewed INR is only mildly elevated today and PTT is at target perioperative assessment: personally reviewed CXR film - low lung volumes, elevated L hemidiaphragm personally reviewed EKG tracing - sinus tachy, low voltage, poor R-wave progression no prior tracing available for review TTE ordered, Reviewed report, notable for extremely limited study due to thickness of chest wall, LVEF normal at 60-65%, no visible RWMA's on limited assessment, RV function moderately reduced, no significant aortic stenosis, normal CVP, pulmonary artery pressure unable to be estimated no medical contraindications for proceeding with planned orthopedic surgery which is a low risk procedure, her main risk is with pulmonary complications es pecially acute respiratory failure given her underlying JACLYN/OHS, it would be advantageous if local or regional anesthesia was able to be utilized. -AM CBC CMP mag PTT INR (2) Hypoxia: Plan: -respiratory biofire panel negative, CXR without focal infiltrates, no volume overloaded on TTE -hypoxia related to hypoventilation / OHS and untreated JACLYN -Incentive spirometry, prn albuterol, flutter valve, prn O2 (3) Adrenal insufficiency: Plan: -Patient is on 15 mg PO hydrocortisone in am and 5 HS at baseline, currently 15 mg po bid to provide mild stress dose -Patient should receive her normal am dose of glucocorticoids, along with approximately 50 mg hydrocortisone intravenously just before the procedure and 25 mg of hydrocortisone everyeight hours for 24 hours postop. (Has not been ordered yet to prevent confusion) -should have hydrocortisone 50 mg IV x 1 OCTOR for 07/07 (4) Factor V Leiden: Plan: -Hx of previous DVT/PE 30+ years ago, chronically anticoagulated on warfarin, held currently -on heparin drip bridging perioperatively -Patient will need to be bridged back to Warfarin on discharge (5) Mass of left thigh: Plan: -left upper thigh swelling -Patient and state that it frequently drains -reviewed ultrasound 07/06 - no drainable fluid collection -on my exam appears to be severe edema, anasarca is likely related to right heart failure (see echo) -postoperatively will benefit from increased diuretic (home lasix 20 mg) (6) RVF (right ventricular failure): Plan: Moderately decreased RV function on TTE 07/06 Anasarca Related to untreated JACLYN -increase diuretics postop (7) HTN (hypertension): Plan: -Stable - labile BP last 24h has been hypertensive and currently mildly hypotensive at 90/50 -Continue metoprolol and lisinopril (8) Hyponatremia: Plan: -Sodium today is 134 -euvolemic, monitor BMP (9) DM II (diabetes mellitus, type II), controlled: Plan: -Monitor BSG ACHS, goal is 110-140 with OR in near future -Normally takes 30 units HS Tresiba, with sliding scale, Ozempic -Will start 15 units Lantus BID, CF of 30, and CR of 10 -BG at goal 07/06 -Patient is on chronic Hydrocortisone adrenal insufficiency -DMII/HH diet -Pharmacy glycemic consult placed (10) JACLYN (obstructive sleep apnea): Plan: -Patient no longer compliant as the masks do not fit her -Prn O2 (11) Liver fibrosis: Plan: -Follows with [facility] Hepatology -LFT's WNL (12) Hypothyroidism: Plan: -Continue levothyroxine (13) Anxiety: Plan: -Continue buspar and Clompiramine (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 she has JACLYN but unable to tolerate CPAP. Denies SOB or CP. unable to sleep in hospital bed because she always sleeps in a recliner, nursing obtained a recliner Physical Exam Physical Exam: PHYSICAL EXAMINATION Last 24h vital signs reviewed, see documentation in flowsheet General: comfortable appearing, no distress HEENT: Normocephalic, atraumatic, pupils round and equal, sclerae anicteric, no conjunctival injection, moist mucus membranes Lungs: Normal respiratory effort. Clear to auscultation bilaterally. No RRW. distant Heart: Regular rate and rhythm, no murmurs. No JVD. distant heart sounds Abdomen: Soft, nontender, nondistended. Bowel sounds present. Extremities: Warm, dry, well-perfused. severe edema of left upper extremity and both lower extremities, pannus edema and severe edema of upper thighs present right foot is dressed in surgical dressing. joint deformities of DIP and PIP joints of both hands are present, no joint inflammation no deformity at MCPs. Skin: No obvious patches consistent with psoriasis, nails are thickened and clubbing is present Neuro: Alert and oriented x 4, face symmetric, moves 4 extremities equally, no asterixis Psych: Normal affect and behavior Results & Data Results & Data Vital Signs (Past 12 Hours) Vital Signs Temp Pulse Pulse Resp BP BP BP 07/06/23 07:30 37.5 C 94 H 25 H 102/52 L 07/06/23 07:12 96 H 07/06/23 06:00 98 H 20 07/06/23 03:05 37.3 C 110 H 22 107/59 L 07/06/23 00:46 07/06/23 00:31 36.6 C 99 H 26 H 156/114 H 07/05/23 23:09 36.6 C 99 H 26 H 156/114 H 07/05/23 23:09 07/05/23 23:00 36.6 C 99 H 20 156/114 H 07/05/23 22:10 112 H 27 H 07/05/23 22:00 114 H 30 H 07/05/23 21:52 107 H 07/05/23 21:50 110 H 21 07/05/23 21:40 117 H 26 H 07/05/23 21:30 106 H 29 H 159/72 H 07/05/23 21:20 102 H 24 07/05/23 21:10 100 H 26 H 07/05/23 21:01 103 H 24 123/46 L 07/05/23 21:00 101 H 25 H 07/05/23 21:00 111 H 20 159/72 H 07/05/23 20:50 99 H 22 07/05/23 20:40 99 H 25 H 07/05/23 20:31 99 H 20 07/05/23 20:31 155/59 H 07/05/23 20:30 97 H 22 07/05/23 20:20 102 H 18 07/05/23 20:10 100 H 24 07/05/23 20:00 163/71 H 07/05/23 20:00 98 H 22 Pulse Ox Pulse Ox O2 Del Method O2 Del Method O2 Flow Rate O2 Flow Rate 07/06/23 07:30 98 Room Air 07/06/23 07:12 07/06/23 06:00 94 Nasal Cannula 2 07/06/23 03:05 96 Nasal Cannula 2 07/06/23 00:46 Nasal Cannula 2 07/06/23 00:31 91 Nasal Cannula 2 07/05/23 23:09 91 Nasal Cannula 2 07/05/23 23:09 91 Nasal Cannula 2 07/05/23 23:00 91 Nasal Cannula 2 07/05/23 22:10 94 Nasal Cannula 2 07/05/23 22:00 94 Nasal Cannula 2 07/05/23 21:52 07/05/23 21:50 07/05/23 21:40 07/05/23 21:30 07/05/23 21:20 93 07/05/23 21:10 93 07/05/23 21:01 07/05/23 21:00 07/05/23 21:00 92 Nasal Cannula 2 07/05/23 20:50 92 Nasal Cannula 2 07/05/23 20:40 92 07/05/23 20:31 07/05/23 20:31 07/05/23 20:30 92 Nasal Cannula 2 07/05/23 20:20 93 07/05/23 20:10 95 07/05/23 20:00 07/05/23 20:00 94 Nasal Cannula 2 PG Care Time/CCT Total # of Minutes Spent Total Time Spent with Patient: Total time spent is greater than 50% in coordination of care (as documented) at patient's floor/unit and/or counseling patient: Coding Level of Care Code 70861 SUB INP/OBS CARE 3/50MIN Diagnoses Osteomyelitis of right foot M86.9 Osteomyelitis type: unspecified type Hypoxia R09.02 Adrenal insufficiency E27.40 Factor V Leiden D68.51 Mass of left thigh R22.42 RVF (right ventricular failure) I50.810 HTN (hypertension) I10 Hyponatremia E87.1 DM II (diabetes mellitus, type II), controlled E11.9 JACLYN (obstructive sleep apnea) G47.33 Liver fibrosis K74.00 Hypothyroidism E03.9 Anxiety F41.9 Hand arthritis M19.049 (1) Osteomyelitis of right foot Osteomyelitis type: unspecified type Qualified Code(s): M86.9 - Osteomyelitis, unspecified
[2023-07-06 08:29] LABS: Estimated Average Glucose 151 mg/dl; Hemoglobin A1C 6.9 % (4.5-5.6)
[2023-07-06 08:33] LABS: INR 1.4 (0.9-1.1); Partial Thromboplastin Ratio 1.7; Prothrombin Time 15.1 Seconds (9.0-12.0)
[2023-07-06 08:37] LABS: Albumin Globulin Ratio 0.9 (0.9-2); Albumin Level 3.1 gm/dl (3.4-5.0); BUN Creatinine Ratio 20.5 (10-20); Bilirubin,Total 0.5 mg/dl (0.2-1.0); Calcium 8.3 mg/dl (8.6-10.3); Creatinine Clr Calc Pharmacy 41.6 ml/min; Est GFR (African American) 37.2 ml/min; Est GFR (Non-African American) 32.1 ml/min; Globulin 3.3 gm/dl (2.5-4.0); Magnesium 1.9 mg/dl (1.7-2.4); Potassium 4.9 mmol/L (3.5-5.1); Total Protein 6.4 gm/dl (6.0-8.3)
[2023-07-06] MEDS: FUROSEMIDE 20 MG TAB PO SCH (08:41)
[2023-07-06] MEDS: POTASSIUM CHLORIDE 10 MEQ TABCR PO SCH (08:41)
[2023-07-06] MEDS: PANTOprazole 40 MG TAB PO SCH (08:41)
[2023-07-06] MEDS: HYDROCORTISONE SOD 50 MG in SYRINGE 0 ML IV ONE ×2 (08:45→08:55)
[2023-07-06] MEDS: INSULIN ASPART PER UNIT CHARGE SC SCH ×4 (08:48→20:19)
[2023-07-06] MEDS: LANTUS PER UNIT CHARGE SQ SCH (08:49)
[2023-07-06 08:57] LABS: Adenovirus PCR Not Detected (NotDetected); Bordetella parapertussis PCR Not Detected (NotDetected); Bordetella pertussis PCR Not Detected (NotDetected); Chlamydia pneumoniae PCR Not Detected (NotDetected); Coronavirus 229E PCR Not Detected (NotDetected); Coronavirus CoV-2 (COVID19)PCR Not Detected (NotDetected); Coronavirus HKU1 PCR Not Detected (NotDetected); Coronavirus NL63 PCR Not Detected (NotDetected); Coronavirus OC43PCR Not Detected (NotDetected); Human Metapneumovirus PCR Not Detected (NotDetected); Influenza A PCR Not Detected (NotDetected); Influenza B PCR Not Detected (NotDetected); Mycoplasma pneumoniae PCR Not Detected (NotDetected); Parainfluenza Virus 1 PCR Not Detected (NotDetected); Parainfluenza Virus 2 PCR Not Detected (NotDetected); Parainfluenza Virus 3 PCR Not Detected (NotDetected); Parainfluenza Virus 4 PCR Not Detected (NotDetected); Respiratory Syncytial VirusPCR Not Detected (NotDetected); Rhinovirus/Enterovirus PCR Not Detected (NotDetected)
[2023-07-06] MEDS ORDERED: lisinopril 40 MG TAB PO SCH (09:00)
[2023-07-06] MEDS ORDERED: VANCOMYCIN HCL 750 MG in SODIUM CHLORIDE 0.9% 250 ML IV SCH (10:00)
--- NOTE | 2023-07-06 10:06 | Pharmacy Report ---
Pharmacy PK ABX Note - Date of Service July 06, 2023 - Assessment and Plan Assessment 68 year old F receiving vancomycin and cefepime for treatment of R foot osteomyelitis. Blood and surface wound culture pending. (+) POPEYE - SCr 1.34 -->1.61mg/dL today. Day #2 of antimicrobial therapy. Plan Vancomycin * Loading dose: 2750 mg IV x 1 * 750mg IV X 1 dose this AM and then will obtain a random level tomorrow AM to guide further dosing given POPEYE. * Random level ordered for: 11/5 AM Pharmacy will continue to follow and will adjust dose/frequency as necessary. Thank you.
[2023-07-06] MEDS: MICONAZOLE NITRATE POWDER 85 GM EXT SCH ×2 (10:44→20:21)
--- NOTE | 2023-07-06 10:46 | Ultrasound Report ---
US extremity non-vascular ltd CLINICAL HISTORY: left upper thigh mass; please monitor for abscess TECHNIQUE: Real-time grayscale sonographic images of the left upper thigh mass were obtained. Comparison: None available at the time of this dictation. FINDINGS/IMPRESSION: No drainable fluid collection is seen. Mild soft tissue edema is noted. ACT 112: Negative or not required by law. Electronically signed by: Hira Elizalde M.D. 07/06/2023 10:44 AM
--- NOTE | 2023-07-06 11:48 | XRay Report ---
XR chest 1V portable CLINICAL HISTORY: SOB, hypoxia TECHNIQUE: Single frontal radiograph of the chest was obtained. Comparison: None available at the time of this dictation. FINDINGS: Exam is limited by underpenetration. Cardiomegaly is noted. The aortic arch is calcified. Elevation o f left hemidiaphragm is seen. Vascular prominence is noted. No evidence of pleural effusion or pneumo thorax. IMPRESSION: Cardiomegaly and mild pulmonary edema. ACT 112: Negative or not required by law. Electronically signed by: Hira Elizalde M.D. 07/06/2023 11:46 AM
--- NOTE | 2023-07-06 13:49 | XCELERA ---
[id number]\[id number]
[2023-07-06] MEDS: HEPARIN SODIUM/DEXTROSE 25,000 UNITS/500 ML BAG IV SCH (14:18)
--- NOTE | 2023-07-06 14:48 | Pharmacy Report ---
Pharmacy Glycemic Short Note 2 - Date of Service July 06, 2023 - Glycemic Short BSG Results (Last 24 hours): 07/05/23 07/05/23 07/06/23 18:03 21:46 07:05 Glucose 143 H POC Glucose 171 H 135 H 07/06/23 07/06/23 07:15 11:16 Glucose 116 H POC Glucose 79 OUTPATIENT ANTIDIABETIC REGIMEN: * Tresiba 30 units SQ daily * Novolog 17 units with breakfast and lunch, 12 units with dinner * Ozempic SQ HbA1c = 6.9% ASSESSMENT: * 68 y/o F admitted with R foot Osteomyelitis. She has history of diabetes managed on basal and bolus insulins at home as well as Ozempic SQ weekly. * She was started on basal insulin 15 units BID yesterday, but lunch BSG decreased to 79 mg/dl today. Will hold off on basal insulin today and re- assess dose tomorrow. * Renal function seems to be worsening at this time. Serum creat increased to 1.61 mg/dl today. * Novolog parameters loosened with dinner to prevent hypoglycemia. PLAN FOR INPATIENT GLYCEMIC CONTROL: * Hold outpatient diabetes medications * Basal insulin * Lantus 15 units last night and today AM but on hold for now. * Bolus insulin * NovoLog per scale ACHS or Q6hrs while NPO * Goal Range: Low 110 mg/dL - High 140 mg/dL * Correction Factor: 25 mg/dL/unit * Nutritional / Prandial insulin per carb ratio of 1 unit per 9 grams CHO consumed
--- NOTE | 2023-07-06 19:57 | XRay Report ---
XR hand LT min 3V routine, XR hand RT min 3V routine CLINICAL HISTORY: arthritic deformities TECHNIQUE: 3 views of the bilateral hands were obtained. Comparison: None available at the time of this dictation. FINDINGS: There is no evidence of an acute fracture. Joint space narrowing and proliferative osteophyte formati on are seen with gull-wing appearance most prominent in the distal interphalangeal joints bilaterally . There is mild ankylosis. No soft tissue abnormality is seen. 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 ACT 112: Negative or not required by law. Electronically signed by: Hira Elizalde M.D. 07/06/2023 7:55 PM
[2023-07-06] MEDS: CLOMIPRAMINE HCL 25 MG CAPSULE PO SCH (22:06)
[2023-07-06] MEDS: traZODone HCL 50 MG TAB PO PRN (22:06)
[2023-07-07] MEDS ORDERED: INSULIN ASPART PER UNIT CHARGE SC SCH (02:00)
[2023-07-07 06:06] LABS: Basophils # (auto) 0.06 K/uL (0.00-0.20); Basophils % (auto) 0.5 %; Eosinophils # (auto) 0.56 K/uL (0.00-0.50); Hematocrit (blood only) 31.7 % (37.0-47.0); Hemoglobin 10.1 g/dl (12.0-16.0); Immature Granulocytes # (auto) 0.08 K/uL (0.01-0.20); Immature Granulocytes % (auto) 0.7 %; Lymphocytes # (auto) 1.33 K/uL (1.20-3.40); Lymphocytes % (auto) 11.9 %; Mean Corpuscular Hgb Conc 31.9 g/dL (32.0-36.0); Mean Corpuscular Volume 94.1 fL (80.0-100.0); Mean Platelet Volume 9.4 fL (9.4-12.4); Monocytes # (auto) 0.94 K/uL (0.11-0.59); Monocytes % (auto) 8.4 %; Neutrophils # (auto) 8.17 K/uL (1.40-6.50); Neutrophils % (auto) 73.5 %; Platelet Count 363 K/uL (130-400); RDW Coefficient of Variation 14.1 % (11.5-14.5); RDW Standard Deviation 48.4 fL (36.4-46.3); Red Blood Count 3.37 M/uL (4.20-5.40); White Blood Count 11.14 K/ul (4.8-10.8)
[2023-07-07] MEDS: HEPARIN SODIUM/DEXTROSE 25,000 UNITS/500 ML BAG IV SCH (06:06)
[2023-07-07] MEDS: CEFEPIME 2,000 MG in SYRINGE 0 ML IV SCH ×2 (06:07→17:14)
[2023-07-07] MEDS: LEVOTHYROXINE SODIUM 175 MCG TABLET PO SCH (06:08)
[2023-07-07 06:43] LABS: Albumin Level 3.1 gm/dl (3.4-5.0); Bilirubin,Total 0.4 mg/dl (0.2-1.0); Calcium 8.2 mg/dl (8.6-10.3); Potassium 4.7 mmol/L (3.5-5.1)
[2023-07-07 06:49] LABS: Albumin Globulin Ratio 0.9 (0.9-2); BUN Creatinine Ratio 19.4 (10-20); Est GFR (African American) 31.2 ml/min; Est GFR (Non-African American) 26.9 ml/min; Globulin 3.4 gm/dl (2.5-4.0); Total Protein 6.5 gm/dl (6.0-8.3)
--- NOTE | 2023-07-07 06:59 | Orthopedic Consultation ---
Date of Consultation July 06, 2023 Assessment & Plan (1) Osteomyelitis of right foot: Patient seen, evaluated, and treated. Reviewed recent x-ray and x-ray findings. Discussed surgical care removal of right second toe secondary to osteomyelitis. Surgical date planned 07/07/23 Thank you for allowing me to participate in the care of this Patient. (2) DM II (diabetes mellitus, type II), controlled: History of Present Illness Attending Physician: Shila oFwler MD History of Present Illness Patient is a 68 year old female seen today for chronic lower extremity wounds on legs and feet and right second toe osteomyelitis. 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 Recent wound cultures have shown poly microbial lower extremity infection including 4+ Klebsiella pneumoniae Morganella morganii, Enterobacter cloacae complex, PROTEUS VULGARIS, Enterococcus faecalis. See diagnositic results below for full culture and sensitivities. Patient has failed out patient oral Abx therapy. Plan for surgical care on 07/07/23. Allergies Allergy/AdvReac Type Severity Reaction Status Date / Time gluten Allergy Unknown Unknown Unverified 07/05/23 19:02 Home Medications Medication Instructions Recorded Confirmed Type albuterol sulfate 90 mcg/actuation 2 puff inhalation .Q4-6H PRN Acute 07/05/23 07/05/23 History aerosol inhaler Bronchospasm azelastine 137 mcg (0.1 %) nasal 1 spray intranasal BID 07/05/23 07/05/23 History spray aerosol buspirone 10 mg tablet See Rx Instructions .Route .COMPLEX 07/05/23 07/05/23 History cetirizine 10 mg tablet 10 mg PO DAILY 07/05/23 07/05/23 History cholecalciferol (vitamin D3) 50 100 mcg PO DAILY 07/05/23 07/05/23 History mcg (2,000 unit) tablet (Vitamin D3) ciprofloxacin HCl 500 mg tablet 500 mg PO BID 07/05/23 07/05/23 History clomipramine 25 mg capsule 25 mg PO HS 07/05/23 07/05/23 History famotidine 20 mg tablet 20 mg PO BID 07/05/23 07/05/23 History furosemide 20 mg tablet 20 mg PO DAILY 07/05/23 07/05/23 History gabapentin 300 mg capsule 300 mg PO TID 07/05/23 07/05/23 History hydrocortisone 10 mg tablet 15 mg PO BID 07/05/23 07/05/23 History insulin aspart U-100 100 unit/mL 0 - 50 unit subcut TID 07/05/23 07/05/23 History subcutaneous solution (Novolog U-100 Insulin aspart) insulin degludec 100 unit/mL (3 30 unit subcut DAILY 07/05/23 07/05/23 History mL) subcutaneous pen (Tresiba FlexTouch U-100 insulin) levothyroxine 175 mcg tablet 175 mcg PO QAM 07/05/23 07/05/23 History lisinopril 40 mg tablet 40 mg PO DAILY 07/05/23 07/05/23 History metoprolol tartrate 25 mg tablet 25 mg PO BID 07/05/23 07/05/23 History omeprazole 40 mg capsule,delayed 40 mg PO DAILY 07/05/23 07/05/23 History release potassium chloride 10 mEq 10 meq PO DAILY 07/05/23 07/05/23 History tablet,extended release(part/cryst) semaglutide 0.25 mg or 0.5 mg (2 0.5 mg subcut WK 07/05/23 07/05/23 History mg/3 mL) subcutaneous pen injector (Ozempic) simvastatin 40 mg tablet 40 mg PO HS 07/05/23 07/05/23 History sulfamethoxazole 800 1 tab PO BID 07/05/23 07/05/23 History mg-trimethoprim 160 mg tablet warfarin 2 mg tablet 2 mg PO DAILY 07/05/23 07/05/23 History Patient History Medical History RVF (right ventricular failure) Social History Smoking Status: Never smoker Hx Alcohol Use: No Hx Substance Use: No Preferred Language: Thai Communication Ability: Effective Hr Leader Required: No Beliefs That Will Affect Care: None Current Living Situation: Spouse Other Information That Helps Us Care for You: No Feels Safe at Home: Yes Safety Concerns: Feels Safe At This Time Assistive Devices: Walker Review of Systems Review of Systems: All systems reviewed & are unremarkable except as noted in HPI & below Physical Exam Physical Exam: General: In no acute distress, stated age, severely obese, non-toxic appearing HEENT: Normocephalic, atraumatic, no scleral icterus, pupils around round, symmetrical, and reactive to light, moist mucus membranes, trachea midline, no thyromegaly Chest/Pulm: No respiratory distress, symmetrical inspiration, decreased breath sounds throughout due to body habitus Cardiac: RRR, 3/6 systolic murmur noted Abdomen: Significantly obese abdomen, normoactive bowel sounds, soft, and non- tender to palpation throughout Musculoskeletal: Symmetrical and without signs of acute trauma, upper and lower extremities with full ROM, no atrophy, spasticity, or flaccidity Extremities: patient with signs of chronic venous insufficiency in the BL LE's with significant chronic swelling in the BL LE"s, large mass/growth in the upper left thigh without active drainage, distal pulse are difficult to palpate due to BL LE stockings and body habitus, but BL LE's are warm with < 3 sec cap refill Skin: Patient with chronic wounds on the dorsal aspect of the distal right 2nd toe and medial aspect of the right first toe Neuro: Alert and oriented to person, place, month, year, and president, no focal defects, no tremors noted Psych: No acute distress, calm and cooperative during the exam Results & Data Vital Signs (Past 12 Hours) Vital Signs Temp Pulse Resp BP Pulse Ox Pulse Ox O2 Del Method 07/07/23 02:57 36.6 C 75 17 93/56 L 92 Room Air 07/06/23 23:22 36.8 C 77 19 108/67 91 Room Air 07/06/23 23:09 93 07/06/23 20:00 Nasal Cannula O2 Del Method O2 Flow Rate O2 Flow Rate 07/07/23 02:57 07/06/23 23:22 07/06/23 23:09 Nasal Cannula 2 07/06/23 20:00 2 Diagnostic Findings Specimen Description WOUND [facility] [place] Special Requests None [facility] [place] Gram Stain Rare Polys 1+ Gram Positive Cocci in pairs 1+ Gram Negative Rods [facility] Culture 4+ Klebsiella pneumoniae 2+ Morganella morganii 4+ Enterobacter cloacae complex 1+ PROTEUS VULGARIS 2+ Enterococcus faecalis [facility] Report Status Final Result 06/29/[address] [facility] Organism 4+ Klebsiella pneumoniae [facility] Organism 4+ Enterobacter cloacae complex [facility] Organism 2+ Morganella morganii [facility] Organism 1+ PROTEUS VULGARIS [facility] Organism 2+ Enterococcus faecalis [facility] Susceptibility 4+ enterobacter cloacae complex (microscan bairon-ug/ml (josefa)) 2+ morganella morganii (microscan bairon-ug/ml (josefa)) 1+ proteus vulgaris (microscan bairon-ug/ml (josefa)) 4+ klebsiella pneumoniae (microscan bairon-ug/ml (josefa)) Not Specified Not Specified Not Specified Not Specified Amoxicillin/Clavulanate <=8/4 Sensitive >16/8 Resistant Ampicillin >16 Resistant Ampicillin/Sulbactam <=4/2 Sensitive 16/8 Intermediate Aztreonam <=4 Sensitive <=4 Sensitive Cefazolin >16 Resistant Cefepime <=2 Sensitive <=2 Sensitive <=2 Sensitive Ceftazidime <=1 Sensitive 4 Sensitive Ceftriaxone <=1 Sensitive Cefuroxime 8 Sensitive Ciprofloxacin <=0.25 Sensitive 2 Resistant <=0.25 Sensitive <=0.25 Sensitive Ertapenem 1 Intermediate <=0.5 Sensitive <=0.5 Sensitive <=0.5 Sensitive Gentamicin <=2 Sensitive <=2 Sensitive <=2 Sensitive <=2 Sensitive Levofloxacin <=0.5 Sensitive 2 Resistant <=0.5 Sensitive <=0.5 Sensitive Meropenem <=1 Sensitive <=1 Sensitive <=1 Sensitive <=1 Sensitive Piperacillin/Tazobactam <=8 Sensitive <=8 Sensitive <=8 Sensitive <=8 Sensitive Sulfa/Trimethoprim <=0.5/9.5 Sensitive 2/38 Sensitive <=0.5/9.5 Sensitive >2/38 Resistant Tetracycline <=4 Sensitive >8 Resistant <=4 Resistant >8 Resistant Tobramycin <=2 Sensitive 4 Sensitive <=2 Sensitive <=2 Sensitive Susceptibility 2+ enterococcus faecalis (microscan bairon-ug/ml (josefa)) Not Specified Daptomycin 2 Sensitive Penicillin 2 Sensitive Vancomycin 2 Sensitive Specimen Collected: 06/25/23 2:54 PM Last Resulted: 06/29/23 6:54 AM (1) Osteomyelitis of right foot Osteomyelitis type: unspecified type Qualified Code(s): M86.9 - Osteomyelitis, unspecified (2) DM II (diabetes mellitus, type II), controlled Diabetes mellitus complication status: with neurologic complications
[2023-07-07 07:01] LABS: INR 1.3 (0.9-1.1); Partial Thromboplastin Ratio 1.6; Prothrombin Time 13.8 Seconds (9.0-12.0)
[2023-07-07 07:05] LABS: Partial Thromboplastin Time 46.3 Seconds (21.0-31.0)
[2023-07-07] MEDS ORDERED: HYDROCORTISONE SOD 50 MG in SYRINGE 0 ML IV ONE (07:30)
--- NOTE | 2023-07-07 07:35 | History & Physical Bridge Note ---
Date of Service July 07, 2023 History & Physical Bridge Note I have examined the patient, reviewed the History & Physical and in the interval since the performance of the History & Physical I have noted the following changes of clinical significance: no changes noted
--- NOTE | 2023-07-07 07:52 | Anesthesiology Consultation ---
Date of Service July 07, 2023 Assessment & Plan Chart Review Chart Review: Acceptable Risk for Surgery and Patient NOT seen in Pre Admission Testing Consults Requested none ASA ASA4 Proposed Anesthesia Anesthesia Type: MAC History Surgery Operation Date: 07/07/23 08:30 Proposed Procedures p Amputation Toe - ERIN HirschM, MS Height/Weight Height: 4 ft 11 in Weight: 138 kg Allergies Allergy/AdvReac Type Severity Reaction Status Date / Time gluten Allergy Unknown Unknown Unverified 07/05/23 19:02 Medications Home Medications Medication Instructions Recorded Confirmed Last Taken albuterol sulfate 90 mcg/actuation 2 puff inhalation .Q4-6H PRN Acute 07/05/23 07/05/23 Unknown aerosol inhaler Bronchospasm azelastine 137 mcg (0.1 %) nasal 1 spray intranasal BID 07/05/23 07/05/23 Unknown spray aerosol buspirone 10 mg tablet See Rx Instructions .Route .COMPLEX 07/05/23 07/05/23 Unknown cetirizine 10 mg tablet 10 mg PO DAILY 07/05/23 07/05/23 Unknown cholecalciferol (vitamin D3) 50 100 mcg PO DAILY 07/05/23 07/05/23 Unknown mcg (2,000 unit) tablet (Vitamin D3) ciprofloxacin HCl 500 mg tablet 500 mg PO BID 07/05/23 07/05/23 Unknown clomipramine 25 mg capsule 25 mg PO HS 07/05/23 07/05/23 Unknown famotidine 20 mg tablet 20 mg PO BID 07/05/23 07/05/23 Unknown furosemide 20 mg tablet 20 mg PO DAILY 07/05/23 07/05/23 Unknown gabapentin 300 mg capsule 300 mg PO TID 07/05/23 07/05/23 Unknown hydrocortisone 10 mg tablet 15 mg PO BID 07/05/23 07/05/23 Unknown insulin aspart U-100 100 unit/mL 0 - 50 unit subcut TID 07/05/23 07/05/23 Unknown subcutaneous solution (Novolog U-100 Insulin aspart) insulin degludec 100 unit/mL (3 30 unit subcut DAILY 07/05/23 07/05/23 Unknown mL) subcutaneous pen (Tresiba FlexTouch U-100 insulin) levothyroxine 175 mcg tablet 175 mcg PO QAM 07/05/23 07/05/23 Unknown lisinopril 40 mg tablet 40 mg PO DAILY 07/05/23 07/05/23 Unknown metoprolol tartrate 25 mg tablet 25 mg PO BID 07/05/23 07/05/23 Unknown omeprazole 40 mg capsule,delayed 40 mg PO DAILY 07/05/23 07/05/23 Unknown release potassium chloride 10 mEq 10 meq PO DAILY 07/05/23 07/05/23 Unknown tablet,extended release(part/cryst) semaglutide 0.25 mg or 0.5 mg (2 0.5 mg subcut WK 07/05/23 07/05/23 Unknown mg/3 mL) subcutaneous pen injector (Ozempic) simvastatin 40 mg tablet 40 mg PO HS 07/05/23 07/05/23 Unknown sulfamethoxazole 800 1 tab PO BID 07/05/23 07/05/23 Unknown mg-trimethoprim 160 mg tablet warfarin 2 mg tablet 2 mg PO DAILY 07/05/23 07/05/23 Unknown Active Medications Generic Name Dose Route Start Last Admin Trade Name Freq PRN Reason Stop Dose Admin Acetaminophen 650 mg 07/05/23 20:14 07/06/23 03:13 Acetaminophen 325 Mg Tab PO 08/04/23 20:14 650 mg Q6H PRN Administration pain (1-4) or fever Buspirone HCl 10 mg 07/06/23 09:00 07/06/23 14:46 Buspirone 5 Mg Tab PO 08/05/23 08:59 10 mg BID@0900,1400 LIBBY Administration Buspirone HCl 20 mg 07/05/23 23:45 07/06/23 20:14 Buspirone 5 Mg Tab PO 08/04/23 23:44 20 mg HS LIBBY Administration Clomipramine HCl 25 mg 07/06/23 21:00 07/06/23 22:06 Clomipramine Hcl 25 Mg Capsule PO 08/05/23 20:59 25 mg HS LIBBY Administration Famotidine 20 mg 07/05/23 23:09 07/06/23 20:18 Famotidine 20 Mg Tab PO 08/04/23 23:08 20 mg BID LIBBY Administration Furosemide 20 mg 07/06/23 09:00 07/06/23 08:41 Furosemide 20 Mg Tab PO 08/05/23 08:59 20 mg DAILY LIBBY Administration Gabapentin 300 mg 07/05/23 23:09 07/06/23 22:07 Gabapentin 300 Mg Cap PO 08/04/23 23:08 300 mg TID LIBBY Administration Hydrocortisone 15 mg 07/05/23 23:09 07/06/23 20:16 Hydrocortisone 10 Mg Tab PO 08/04/23 23:08 15 mg BID LIBBY Administration Heparin Sodium/Dextrose 25,000 units in 500 mls @ 30 mls/hr 07/05/23 20:45 07/07/23 06:06 Heparin Sodium/Dextrose IV 08/04/23 20:44 1,500 units/hr .[id number] LIBBY 30 mls/hr Administration Protocol 1,500 UNITS/HR Cefepime HCl 2,000 mg/ Syringe 20 mls @ 5 mls/min 07/06/23 06:00 07/07/23 06:07 IV 08/17/23 05:59 5 mls/min Q12H LIBBY Administration Protocol Insulin Aspart 0 units 07/05/23 21:00 07/06/23 20:19 Insulin Aspart Per Unit Charge SC 08/04/23 20:59 Not Given ACHS LIBBY Levothyroxine Sodium 175 mcg 07/06/23 06:30 07/07/23 06:08 Levothyroxine Sodium 175 Mcg Tablet PO 08/05/23 06:29 175 mcg DAILYBB LIBBY Administration Lisinopril 40 mg 07/06/23 09:00 07/06/23 08:41 Lisinopril 40 Mg Tab PO 08/05/23 08:59 40 mg DAILY LIBBY Administration Metoprolol Tartrate 25 mg 07/05/23 23:09 07/06/23 20:17 Metoprolol Tartrate 25 Mg Tab PO 08/04/23 23:08 25 mg BID LIBBY Administration Miconazole Nitrate 1 appln 07/06/23 09:30 07/06/23 20:21 Miconazole Nitrate Powder 85 Gm EXT 08/05/23 09:29 1 appln BID LIBBY Administration Pantoprazole Sodium 40 mg 07/06/23 09:00 07/06/23 08:41 Pantoprazole 40 Mg Tab PO 08/05/23 08:59 40 mg DAILY LIBBY Administration Potassium Chloride 10 meq 07/06/23 09:00 07/06/23 08:41 Potassium Chloride 10 Meq Tabcr PO 08/05/23 08:59 10 meq DAILY LIBBY Administration Simvastatin 40 mg 07/05/23 23:09 07/06/23 20:17 Simvastatin 40 Mg Tab PO 08/04/23 23:08 40 mg HS LIBBY Administration Trazodone HCl 25 mg 07/06/23 09:16 07/06/23 22:06 Trazodone Hcl 50 Mg Tab PO 08/05/23 09:15 25 mg HS PRN Administration Sleep Past Medical History Medical History RVF (right ventricular failure) RV Failure CHF HTN HLD ASCD Aorta Anxiety NIDDM Hypothyroidism Hyponatremia Morbid Obesity JACLYN Factor V Leiden Chronic Anticoagulation Chronic Hypoxia Liver Fibrosis Anemia PVD Adrenal insufficiency Osteomyelitis right foot CKD/CRI Volume overload Hx/o DVT/PE Left Thigh Mass Anasarca/severe edema Exercise / Class Metabolic Activity III < 4 Walking/Shop/Light housework Past Anesthesia History No Hx of Anesthesia Complications and No Family Hx of Anesthesia Complications History of PONV No Hx of PONV and No Hx of Motion Sickness Social History Smoking Status: Never smoker Hx Alcohol Use: No Hx Substance Use: No Physical Exam Vital Signs Last Vital Signs Temp 36.6 C 07/07/23 02:57 Pulse 75 07/07/23 02:57 Resp 17 07/07/23 02:57 BP 93/56 L 07/07/23 02:57 Pulse Ox 92 07/07/23 02:57 O2 Del Method Room Air 07/07/23 02:57 O2 Flow Rate 2 07/06/23 23:09 Testing Laboratory Results 07/07/23 05:27 07/07/23 05:27 PT 13.8 Seconds (9.0-12.0) H 07/07/23 05:27 INR 1.3 (0.9-1.1) H 07/07/23 05:27 APTT 46.3 Seconds (21.0-31.0) H* 07/07/23 05:27 Hemoglobin A1c 6.9 % (4.5-5.6) H 07/06/23 07:15 07/05/23 18:03 Aerobic Blood Culture - Preliminary Blood No growth in Aerobic bottle after 24 hours. Anaerobic Blood Culture - Preliminary No growth in Anaerobic bottle after 24 hours. 07/05/23 18:04 Aerobic Blood Culture - Preliminary Blood No growth in Aerobic bottle after 24 hours. Anaerobic Blood Culture - Preliminary No growth in Anaerobic bottle after 24 hours. 07/05/23 18:24 Gram Stain - Final Toe Wound Culture - Preliminary Low counts mixed probable skin microbiota. 07/07/23 07/07/23 07:19 01:51 EST POC Glucose 122 H 128 H Electrocardiogram Date: 07/05/23 Findings: + ST @ (@ 108;low voltage QRS) Chest X-Ray Date: 07/05/23 Findings: + cardiomegaly, + pulmonary vascular congestion (mild pulmonary edema) and + atherosclerosis of thoracic aorta Echocardiogram Date: 07/06/23 EF: 60% LV Function: normal RWMA: + none Valvular Disease: + pertinent finding (RV Fxn-moderately reduced;Hx/o RV failure)
[2023-07-07] MEDS ORDERED: BUPIVACAINE 0.5 % 5 MG/1 ML MPF 30ML VIAL ONE (08:56)
[2023-07-07] MEDS ORDERED: ATROPINE SULFATE 0.1 MG/ML 10ML SYR IV PRN (08:56)
[2023-07-07] MEDS ORDERED: fentaNYL citrate PF 100 MCG/2 ML VIAL ONE (09:00)
[2023-07-07] MEDS ORDERED: VANCOMYCIN HCL 750 MG in SODIUM CHLORIDE 0.9% 250 ML IV ONE (09:00)
[2023-07-07] MEDS ORDERED: PROPOFOL IV EMULSION 10 MG/ML 20 ML VIAL IV ONE (09:00)
[2023-07-07] MEDS ORDERED: LIDOCAINE 2% 2 ML VIAL/AMP(20MG/ML) INFIL ONE (09:00)
[2023-07-07] MEDS ORDERED: MIDAZOLAM HCL 1 MG/ML 2ML VIAL ONE (09:00)
[2023-07-07] MEDS ORDERED: KETAMINE 50 MG/5 ML SYRINGE ONE (09:02)
[2023-07-07] MEDS: INSULIN ASPART PER UNIT CHARGE SC SCH ×4 (09:05→22:00)
[2023-07-07] MEDS: HYDROCORTISONE 10 MG TAB PO SCH ×2 (09:27→21:59)
--- NOTE | 2023-07-07 09:43 | Post Operative Brief Note ---
Immediate Post Op Note v1 Date of Surgery July 07, 2023 Pre & Post Diagnosis Operation Date: 07/07/23 08:30 <No data on this case meets the specified criteria> I identified the patient and participated in the time-out.: Yes Procedure Operation Date: 07/07/23 08:30 Actual Procedures p Right Second Toe Amputation(Right) - Robby Kelly DPM, MS Surgeon Robby Kelly DPM, MS Copy Supervisor none Estimated Blood Loss 0 Findings Consistent with Post-Op Diagnosis Specimens Right second toe - Pathology Right second toe - microbiology
--- NOTE | 2023-07-07 10:03 | Anesthesiology Progress Note ---
Date of Service July 07, 2023 Anesthesia Post Procedure Vital Signs Vital Signs: Temp Pulse Pulse Resp BP Pulse Ox Pulse Ox 07/07/23 09:55 70 17 109/60 95 07/07/23 09:46 36.1 C L 72 14 117/61 97 07/07/23 07:46 36.6 C 75 24 151/79 H 85 L 07/07/23 02:57 36.6 C 75 17 93/56 L 92 07/06/23 23:22 36.8 C 77 19 108/67 91 07/06/23 23:09 93 07/06/23 20:00 07/06/23 19:39 36.9 C 96 H 17 126/62 90 07/06/23 16:05 36.7 C 85 19 133/54 L 92 07/06/23 11:19 36.7 C 76 21 90/70 L 90 O2 Del Method O2 Del Method O2 Flow Rate O2 Flow Rate 07/07/23 09:55 Oxymask 5 07/07/23 09:46 Oxymask 10 07/07/23 07:46 Room Air 07/07/23 02:57 Room Air 07/06/23 23:22 Room Air 07/06/23 23:09 Nasal Cannula 2 07/06/23 20:00 Nasal Cannula 2 07/06/23 19:39 Room Air 07/06/23 16:05 Room Air 07/06/23 11:19 Room Air Pain Intensity Left Foot: Pain Intensity: 3 Transfer of Care Handoff Completed per policy Notes Mental Status: alert / awake / arousable Patient Amnestic to Procedure: Yes Nausea / Vomiting: adequately controlled Pain: adequately controlled Airway Patency, RR, SpO2: stable & adequate BP & HR: stable & adequate Hydration State: stable & adequate Anesthetic Complications: no major complications apparent
[2023-07-07] MEDS: METOPROLOL TARTRATE 25 MG TAB PO SCH ×2 (10:27→22:01)
[2023-07-07] MEDS: FAMOTIDINE 20 MG TAB PO SCH ×2 (10:28→22:00)
[2023-07-07] MEDS: PANTOprazole 40 MG TAB PO SCH (10:28)
[2023-07-07] MEDS: busPIRone 5 MG TAB PO SCH ×3 (10:29→22:00)
[2023-07-07] MEDS: POTASSIUM CHLORIDE 10 MEQ TABCR PO SCH (10:29)
[2023-07-07] MEDS: GABAPENTIN 300 MG CAP PO SCH ×3 (10:29→22:01)
[2023-07-07] MEDS: MICONAZOLE NITRATE POWDER 85 GM EXT SCH ×2 (10:30→22:02)
--- NOTE | 2023-07-07 10:46 | Operative Report ---
Post Operative Report Pre & Post Diagnosis Operation Date: 07/07/23 08:30 Pre-Op Diagnosis: Osteomyelitis of right second toe Post-Op Diagnosis: Osteomyelitis of right second toe I identified the patient and participated in the time-out.: Yes Procedure Operation Date: 07/07/23 08:30 Actual Procedures p Right Second Toe Amputation(Right) - Robby Kelly DPM, MS Surgeon Robby Kelly DPM, MS Syrup Mixer Helper none Estimated Blood Loss 0 Findings Consistent with Post-Op Diagnosis Specimens 1. ) right second toe phalanx bone - microbiology 2. ) right second toe - pathology Description of Procedure History of present illness: Patient is a type II diabetic, 68 year old female who is seen for treatment of osteomyelitis of the right second toe. Patient notes a diabetic second toe foot ulcer open for multiple weeks, and X-rays (+) for osteomyelitis of the second toe of right foot. There is also concern for ascending cellulitis and need for source control. Discussed procedure in detail and postoperative recovery. All potential risks, benefits, complications, alternatives, rehab, potential for incomplete relief of symptoms, need for further surgery, DVT, PE, , persistent pain, swelling, scarring, weakness, neurovascular, wound complications and potential for amputations were discussed with patient. Unwanted outcomes such as, but not limited to were reviewed including under correction, overcorrection, return of deformity, infection. All questions were answered. Patient has decided to proceed with procedure as ind icated. Preoperative diagnosis: Right second toe diabetic ulcer osteomyelitis phalanx Postoperative diagnosis: same Name of operation: Right second toe amputation Surgeon Dr. Kelly Syrup Mixer Helper: None Anesthesia: local with monitored anesthesia care Hemostasis: pneumatic ankle tourniquet Estimated blood loss: minimal Procedure in detail: Under mild sedation the patient was brought in the operating room placed on the operating table in supine position. A pneumatic ankle tourniquet was then placed about the patient's right ankle. Following IV sedation the foot was then prepped scrubbed and draped in usual aseptic manner. An Esmarch bandage was utilized to exsanguinate the patient's right foot and the pneumatic ankle tourniquet was then inflated. Attention was then directed to a nonhealing diabetic ulcer on the distal aspect of the right second toe. A fish mouth incision was created utilizing a sharp, sterile, #15 blade. The incision which was deepened through subcutaneous tissue using sharp blunt dissection. Care was taken to identify and retract all vital neurovascular structures. All bleeders were ligated and cauterized necessary. At this time the right second toe was removed at the metatarsal inter phalangeal joint and placed on the back table. A portion of the right second toe was sent to microbiology and the remainder was sent pathology. Copious amounts of sterile normal saline were utilized to flush the incision site.The skin was then primarily closed utilizing 4-0 nylon in horizontal suture mattress techniques as well as simple suture closure. Upon completion of the procedure the incision was dressed with Betadine soaked Adaptic followed by sterile compressive dressing consisting of 4 x 4's Iglesia Kerlix ABD the pneumatic ankle tourniquet was inflated and a prompt hyperemic response was noted to all digits of the right foot. An Adrian wrap and postoperative shoe were then applied. The Patient tolerated the procedure and anesthesia well. She was transferred to recovery room vital signs stable. After a period of postoperative monitoring the patient will be re-admitted to the floor. I attest to the content of the Intraoperative Record and any orders documented therein. Any exceptions are noted below.
--- NOTE | 2023-07-07 10:56 | Pharmacy Report ---
Pharmacy PK ABX Note - Date of Service July 07, 2023 - Assessment and Plan Assessment 68 year old F receiving vancomycin and cefepime for treatment of R foot osteomyelitis. Blood and surface wound culture pending. (+) POPEYE - SCr 1.34 -->1.61-->1.86 mg/dL today. Day #3 of antimicrobial therapy. Plan Vancomycin * Random vancomycin level this AM, 17.6mcg/mL. Given worsening renal function (and body habitus with likely accumulation), continue to dose by levels. Safe to re-dose. * 750mg IV X 1 dose this AM and then will obtain a random level tomorrow AM to guide further dosing * Random level ordered for: 11/6 AM Pharmacy will continue to follow and will adjust dose/frequency as necessary. Thank you.
[2023-07-07] MEDS: HYDROCORTISONE SOD 25 MG in SYRINGE 0 ML IV SCH ×2 (13:15→19:23)
--- NOTE | 2023-07-07 14:07 | Hospitalist Progress Note ---
Date of Service July 07, 2023 Assessment & Plan (1) Osteomyelitis of right foot: Plan: Diabetic foot ulcer with surrounding cellulitis, osteomyelitis of 2nd toe - amputation by Dr. Kelly 07/07 - continue vancomycin and cefepime - await operative cultures and pathology - surgeon thought he had good margins -Blood cultures obtained in the ED ngtd - warfarin held for surgical procedure, bridging with heparin drip. discussed with surgeon and ok to resume heparin drip at this time perioperative assessment: personally reviewed CXR film - low lung volumes, elevated L hemidiaphragm personally reviewed EKG tracing - sinus tachy, low voltage, poor R-wave progression no prior tracing available for review TTE ordered, Reviewed report, notable for extremely limited study due to thickness of chest wall, LVEF normal at 60-65%, no visible RWMA's on limited assessment, RV function moderately reduced, no significant aortic stenosis, normal CVP, pulmonary artery pressure unable to be estimated no medical contraindications for proceeding with planned orthopedic surgery which is a low risk procedure, her main risk is with pulmonary complications especially acute respiratory failure given her underlying JACLYN/OHS, it would be advantageous if local or regional anesthesia was able to be utilized. -CBC CMP mag PTT INR - reviewed, stable -AM CBC CMP PTT INR ordered (2) Hypoxia: Plan: -respiratory biofire panel negative, CXR without focal infiltrates, no volume overloaded on TTE -hypoxia related to hypoventilation / OHS and untreated JACLYN -Incentive spirometry, prn albuterol, flutter valve, prn O2 (3) Adrenal insufficiency: Plan: -Patient is on 15 mg PO hydrocortisone in am and 5 HS at baseline, currently 15 mg po bid to provide mild stress dose -gave 50 mg IV hydrocortisone OCTOR this am, continue with 25 mg IV q6h x 3 -if hypotensive in perioperative period can increase / give additional doses IV steroids (4) Factor V Leiden: Plan: -Hx of previous DVT/PE 30+ years ago, chronically anticoagulated on warfarin, held currently -on heparin drip bridging perioperatively -warfarin home dose is 2 mg, so will give 5 mg tonight -daily AM INR (5) Mass of left thigh: Plan: -left upper thigh swelling -Patient and state that it frequently drains -reviewed ultrasound 07/06 - no drainable fluid collection -on my exam appears to be severe edema, anasarca is likely related to right heart failure (see echo) and lymphedema related to large pannus lying on thighs -postoperatively will benefit from increased diuretic (home lasix 20 mg) (6) RVF (right ventricular failure): Plan: Moderately decreased RV function on TTE 07/06 Anasarca Related to untreated JACLYN -increase diuretics postop (7) HTN (hypertension): Plan: -Stable - less labile BP last 24h, currently normotensive -Continue metoprolol and hold lisinopril (8) Hyponatremia: Plan: -Sodium today is 134 -euvolemic, monitor BMP (9) DM II (diabetes mellitus, type II), controlled: Plan: -Normally takes 30 units HS Tresiba, with sliding scale, Ozempic -on glargine and aspart managed by pharmacist -BG at goal 07/07 (10) JACLYN (obstructive sleep apnea): Plan: -Patient no longer compliant as the masks do not fit her -Prn O2 (11) Liver fibrosis: Plan: -Follows with [facility] Hepatology -LFT's WNL (12) Hypothyroidism: Plan: -Continue levothyroxine (13) Anxiety: Plan: -Continue buspar and Clompiramine (14) Hand arthritis: Plan: bilateral hand deformity suspicious for psoriatic arthritis denies history of gout no MCP inflammation or deformity to suggest RA -obtained plain films of hands = deformity could be consistent with OA, RA, or psoriatic arthritis (15) CKD (chronic kidney disease) stage 3, GFR 30-59 ml/min: Plan: Cr increased from admission 1.34 --> 1.86. Baseline unknown -monitor daily -hold lisinopril Admission and Anticipated Discharge Date Admission Date: July 05, 2023 Subjective seen postop and groggy/falling asleep. no foot pain. no shortness of breath. wants to talk about her leg bulges mainly, but falling asleep too often for a discussion. Physical Exam 2 Physical Exam: PHYSICAL EXAMINATION Last 24h vital signs reviewed, see documentation in flowsheet General: seen postop, mildly sedated HEENT: Normocephalic, atraumatic, pupils round and equal, sclerae anicteric, no conjunctival injection, moist mucus membranes Lungs: Normal respiratory effort. Clear to auscultation bilaterally anteriorly. No RRW. distant Heart: Regular rate and rhythm, no murmurs. No JVD. distant heart sounds Abdomen: Soft, nontender, nondistended. Bowel sounds present. Extremities: Warm, dry, well-perfused. edema of left upper extremity and both lower extremities seems a little improved, pannus edema and severe edema of upper thighs present right foot is dressed in surgical dressing cdi. joint deformities of DIP and PIP joints of both hands are present, no joint inflammation no deformity at MCPs. Skin: No obvious patches consistent with psoriasis, nails are thickened and clubbing is present Neuro: sleepy, face symmetric, moves 4 extremities equally, no asterixis Psych: Normal affect and behavior Results & Data Results & Data Vital Signs (Past 12 Hours) Vital Signs Temp Pulse Pulse Pulse Resp BP Pulse Ox 07/07/23 11:01 68 17 126/70 95 07/07/23 10:46 67 19 127/68 95 07/07/23 10:31 69 18 126/66 95 07/07/23 10:26 36.8 C 77 19 126/75 94 07/07/23 10:05 36.6 C 77 16 113/68 93 07/07/23 09:55 70 17 109/60 95 07/07/23 09:46 36.1 C L 72 14 117/61 97 07/07/23 09:00 70 07/07/23 09:00 07/07/23 07:46 36.6 C 75 24 151/79 H 85 L 07/07/23 02:57 36.6 C 75 17 93/56 L 92 O2 Del Method O2 Flow Rate 07/07/23 11:01 Nasal Cannula 2 07/07/23 10:46 Nasal Cannula 2 07/07/23 10:31 Nasal Cannula 2 07/07/23 10:26 Nasal Cannula 2 07/07/23 10:05 Nasal Cannula 2 07/07/23 09:55 Oxymask 5 07/07/23 09:46 Oxymask 10 07/07/23 09:00 07/07/23 09:00 Room Air 07/07/23 07:46 Room Air 07/07/23 02:57 Room Air Laboratory Results 07/07/23 05:27 07/07/23 05:27 PG Care Time/CCT Total # of Minutes Spent Total Time Spent with Patient: Total time spent is greater than 50% in coordination of care (as documented) at patient's floor/unit and/or counseling patient: Coding Level of Care Code 90174 SUB INP/OBS CARE MIN Diagnoses Osteomyelitis of right foot M86.9 Osteomyelitis type: unspecified type Hypoxia R09.02 Adrenal insufficiency E27.40 Factor V Leiden D68.51 Mass of left thigh R22.42 RVF (right ventricular failure) I50.810 HTN (hypertension) I10 Hyponatremia E87.1 DM II (diabetes mellitus, type II), controlled E11.9 Diabetes mellitus complication status: with neurologic complications JACLYN (obstructive sleep apnea) G47.33 Liver fibrosis K74.00 Hypothyroidism E03.9 Anxiety F41.9 Hand arthritis M19.049 CKD (chronic kidney disease) stage 3, GFR 30-59 ml/min N18.30 (1) Osteomyelitis of right foot Osteomyelitis type: unspecified type Qualified Code(s): M86.9 - Osteomyelitis, unspecified (9) DM II (diabetes mellitus, type II), controlled Diabetes mellitus complication status: with neurologic complications
[2023-07-07] MEDS ORDERED: WARFARIN SOD 5 MG TAB PO ONE (16:00)
--- NOTE | 2023-07-07 17:50 | Electrocardiogram Report ---
Test Reason : Blood Pressure : / mmHG Vent. Rate : 108 BPM Atrial Rate : 108 BPM P-R Int : 140 ms QRS Dur : 070 ms QT Int : 312 ms P-R-T Axes : 066 007 064 degrees QTc Int : 418 ms Poor data quality, interpretation may be adversely affected Sinus tachycardia Low voltage QRS Cannot rule out Anterior infarct , age undetermined Abnormal ECG No previous ECGs available Confirmed by Santosh Tobar ([id number]) on 07/07/2023 5:50:42 PM Referred By: REFERRED SELF Confirmed By:Santosh Tobar
[2023-07-07] MEDS: CLOMIPRAMINE HCL 25 MG CAPSULE PO SCH (21:59)
[2023-07-07] MEDS: SIMVASTATIN 40 MG TAB PO SCH (22:02)
[2023-07-07 23:15] LABS: Partial Thromboplastin Ratio 1.3; Partial Thromboplastin Time 36.7 Seconds (21.0-31.0)
[2023-07-07] MEDS: traZODone HCL 50 MG TAB PO PRN (23:59)
[2023-07-08] MEDS: HYDROCORTISONE SOD 25 MG in SYRINGE 0 ML IV SCH (01:04)
[2023-07-08] MEDS: HEPARIN SODIUM/DEXTROSE 25,000 UNITS/500 ML BAG IV SCH ×2 (05:00→19:41)
[2023-07-08] MEDS: LEVOTHYROXINE SODIUM 175 MCG TABLET PO SCH (06:28)
[2023-07-08] MEDS: CEFEPIME 2,000 MG in SYRINGE 0 ML IV SCH ×2 (06:29→18:03)
[2023-07-08 06:41] LABS: Basophils # (auto) 0.07 K/uL (0.00-0.20); Basophils % (auto) 0.5 %; Eosinophils # (auto) 0.03 K/uL (0.00-0.50); Eosinophils % (auto) 0.2 %; Hematocrit (blood only) 32.8 % (37.0-47.0); Hemoglobin 10.5 g/dl (12.0-16.0); Immature Granulocytes # (auto) 0.08 K/uL (0.01-0.20); Immature Granulocytes % (auto) 0.6 %; Lymphocytes # (auto) 0.84 K/uL (1.20-3.40); Lymphocytes % (auto) 6.1 %; Mean Corpuscular Hemoglobin 29.7 pg (25.0-34.0); Mean Corpuscular Volume 92.7 fL (80.0-100.0); Mean Platelet Volume 9.5 fL (9.4-12.4); Monocytes # (auto) 0.94 K/uL (0.11-0.59); Monocytes % (auto) 6.8 %; Neutrophils # (auto) 11.82 K/uL (1.40-6.50); Neutrophils % (auto) 85.8 %; Platelet Count 373 K/uL (130-400); RDW Coefficient of Variation 13.4 % (11.5-14.5); RDW Standard Deviation 45.8 fL (36.4-46.3); Red Blood Count 3.54 M/uL (4.20-5.40); White Blood Count 13.78 K/ul (4.8-10.8)
[2023-07-08 06:42] LABS: Albumin Globulin Ratio 0.9 (0.9-2); Albumin Level 3.3 gm/dl (3.4-5.0); BUN Creatinine Ratio 19.9 (10-20); Bilirubin,Total 0.4 mg/dl (0.2-1.0); Calcium 8.5 mg/dl (8.6-10.3); Creatinine Clr Calc Pharmacy 35.5 ml/min; Est GFR (African American) 31.2 ml/min; Est GFR (Non-African American) 26.9 ml/min; Globulin 3.6 gm/dl (2.5-4.0); Potassium 4.9 mmol/L (3.5-5.1); Total Protein 6.9 gm/dl (6.0-8.3)
--- NOTE | 2023-07-08 07:19 | Pharmacy Report ---
Pharmacy PK ABX Note - Date of Service July 08, 2023 - Assessment and Plan Assessment 07/08: Scr 1.86 today. Will continue to dose per levels at this time. Blood cultures and toe culture no growth to date. 07/07: 68 year old F receiving vancomycin and cefepime for treatment of R foot osteomyelitis. Blood and surface wound culture pending. (+) POPEYE - SCr 1.34 -->1.61-->1.86 mg/dL today. Day #4 of antimicrobial therapy. Plan Vancomycin * Goal vancomycin trough 15-20mcg/mL for osteomyelitis * Random vancomycin level this AM, 12.8mcg/mL. Given renal function (and body habitus with likely accumulation), will continue to dose by levels. Safe to re-dose today * Increase dose today to vancomycin 1250mg IV X 1 (15 mg/kg per AdjBW of 81kg) and then will obtain a random level tomorrow AM to guide further dosing * Random level ordered for: 07/09 AM Pharmacy will continue to follow and will adjust dose/frequency as necessary. Thank you.
[2023-07-08 07:35] LABS: INR 1.3 (0.9-1.1); Partial Thromboplastin Ratio 1.6; Prothrombin Time 14.2 Seconds (9.0-12.0)
[2023-07-08] MEDS ORDERED: VANCOMYCIN HCL 1,250 MG in SODIUM CHLORIDE 0.9% 250 ML IV ONE (08:00)
--- NOTE | 2023-07-08 08:59 | Orthopedic Progress Note ---
Date of Service July 08, 2023 Assessment & Plan (1) Osteomyelitis of right foot: (2) DM II (diabetes mellitus, type II), controlled: Plan: Patient seen and examined at beside in room 276-1. Patient is status post day #1 right second toe amputation (DOS:07/07/23) Awaiting micro cultures and sensitives since in house. Recent out Patient wound cultures from [facility] have shown 4+ Klebsiella pneumoniae Morganella morganii, Enterobacter cloacae complex, PROTEUS VULGARIS, Enterococcus faecalis. Dry sterile dressing applied with out incident. No signs of necrosis or infection were observed or reported. Will continue to follow while in house. Thank you for allowing me to participate in the care of this Patient. Admission and Anticipated Discharge Date Admission Date: July 05, 2023 Subjective Patient seen and examined at beside in room 276-1. Patient is status post day #1 right second toe amputation (DOS:07/07/23) Review of Systems Review of Systems: All systems reviewed & are unremarkable except as noted in Subjective Physical Exam Constitutional: cooperative, comfortable, + lethargic and + overweight Eyes: normal visual cho by confrontation Neck: normal visual inspection Respiratory: normal respiratory effort Cardiovascular: Rate/Rhythm: regular rate and regular rhythm Vessels: posterior tibial pulses present and dorsalis pedis pulses present Skin: + incision (Right second toe amputation well co-apted. No signs of infection.) Neurologic: moves all extremities (Absent lower extremity epicritic sensation) Psychiatric: Orientation: alert, oriented x 3 and cooperative Results & Data Vital Signs (Past 12 Hours) Vital Signs Temp Pulse Pulse Resp BP Pulse Ox O2 Del Method 07/08/23 08:09 36.4 C L 87 19 183/79 H 90 Room Air 07/08/23 07:28 77 07/08/23 04:00 36.6 C 73 18 168/77 H 95 Room Air 07/08/23 00:00 36.5 C 77 18 144/74 H 92 Room Air 07/07/23 22:07 84 (1) Osteomyelitis of right foot Osteomyelitis type: unspecified type Qualified Code(s): M86.9 - Osteomyelitis, unspecified (2) DM II (diabetes mellitus, type II), controlled Diabetes mellitus complication status: with neurologic complications
[2023-07-08] MEDS: INSULIN ASPART PER UNIT CHARGE SC SCH ×4 (09:08→21:26)
[2023-07-08] MEDS: busPIRone 5 MG TAB PO SCH ×3 (09:08→21:14)
[2023-07-08] MEDS: GABAPENTIN 300 MG CAP PO SCH ×3 (09:09→21:13)
[2023-07-08] MEDS: FAMOTIDINE 20 MG TAB PO SCH ×2 (09:09→21:14)
[2023-07-08] MEDS: METOPROLOL TARTRATE 25 MG TAB PO SCH ×2 (09:09→21:12)
[2023-07-08] MEDS: HYDROCORTISONE 10 MG TAB PO SCH ×2 (09:10→21:13)
[2023-07-08] MEDS: FUROSEMIDE 20 MG TAB PO SCH (09:10)
[2023-07-08] MEDS: MICONAZOLE NITRATE POWDER 85 GM EXT SCH ×2 (09:11→21:12)
[2023-07-08] MEDS: PANTOprazole 40 MG TAB PO SCH (09:11)
[2023-07-08] MEDS: POTASSIUM CHLORIDE 10 MEQ TABCR PO SCH (09:11)
[2023-07-08] MEDS: LANTUS PER UNIT CHARGE SC SCH (12:52)
--- NOTE | 2023-07-08 13:53 | Pharmacy Report ---
Pharmacy Glycemic Short Note 2 - Date of Service July 08, 2023 - Glycemic Short BSG Results (Last 24 hours): 07/07/23 07/07/23 07/08/23 16:10 20:20 05:56 Glucose 171 H POC Glucose 163 H 148 H 07/08/23 07/08/23 09:00 12:16 Glucose POC Glucose 189 H 123 H OUTPATIENT ANTIDIABETIC REGIMEN: * Tresiba 30 units SQ daily * Novolog 17 units with breakfast and lunch, 12 units with dinner * Ozempic SQ HbA1c = 6.9% ASSESSMENT: 07/08: * Leticia received 11 units of bolus insulin yesterday * Fasting BSG this AM elevated, Lantus on hold due to BSG below goal, restart Lantus at 1/3 of home dose and reassess in AM * Mealtime BSGs fairly well controlled, will tighten carbohydrate ratio slightly 07/06: * 68 y/o F admitted with R foot Osteomyelitis. She has history of diabetes managed on basal and bolus insulins at home as well as Ozempic SQ weekly. * She was started on basal insulin 15 units BID yesterday, but lunch BSG decreased to 79 mg/dl today. Will hold off on basal insulin today and re-asse ss dose tomorrow. * Renal function seems to be worsening at this time. Serum creat increased to 1.61 mg/dl today. * Novolog parameters loosened with dinner to prevent hypoglycemia. PLAN FOR INPATIENT GLYCEMIC CONTROL: * Hold outpatient diabetes medications * Basal insulin * Lantus 10 units SC QAM * Bolus insulin * NovoLog per scale ACHS or Q6hrs while NPO * Goal Range: Low 110 mg/dL - High 140 mg/dL * Correction Factor: 25 mg/dL/unit * Nutritional / Prandial insulin per carb ratio of 1 unit per 8 grams CHO consumed
[2023-07-08] MEDS ORDERED: WARFARIN SOD 5 MG TAB PO ONE (16:00)
--- NOTE | 2023-07-08 16:20 | Hospitalist Progress Note ---
Date of Service July 08, 2023 Assessment & Plan (1) Osteomyelitis of right foot: Plan: Diabetic foot ulcer with surrounding cellulitis, osteomyelitis of 2nd toe - amputation by Dr. Kelly 07/07 - continue vancomycin and cefepime for now - await operative cultures and pathology - surgeon thought he had good margins -Blood cultures obtained in the ED ngtd - warfarin held for surgical procedure, since resumed, bridging with heparin drip. - discussed with Dr. Kelly - requested wound nurse eval for lymphedema legs and thighs, discussed with inpatient wound nurse - she is not trained in lymphedema management - discussed follow up in outpatient wound center with patient and her (2) Factor V Leiden: Plan: (4) hypercoagulable state due to Factor V Leiden: Plan: -Hx of previous DVT/PE 30+ years ago, chronically anticoagulated on warfarin, held currently -on heparin drip bridging perioperatively -warfarin home dose is 2 mg every day except 4 mg on Satudays. Ordered 5 mg on 07/07, 5 mg on 07/08 -daily AM INR, not trending up yet (3) RVF (right ventricular failure): Plan: (6) RVF (right ventricular failure): Plan: Moderately decreased RV function on TTE 07/06 Anasarca Related to untreated JACLYN -increase diuretics -she and her think maybe they have a laboratory associate in [place] but they are not sure and can't remember her name (4) JACLYN (obstructive sleep apnea): Plan: (10) JACLYN (obstructive sleep apnea): Plan: -Patient no longer compliant as the masks do not fit her - recommended being seen in sleep medicine clinic again as new masks may be available, counseled wrt effect of JACLYN on heart -Prn O2 (5) Adrenal insufficiency: Plan: (3) Adrenal insufficiency: Plan: -Patient is on 15 mg PO hydrocortisone in am and 5 HS at baseline -gave 50 mg IV hydrocortisone OCTOR then 25 mg IV q6h x 3 -currently 15 mg po bid to provide mild stress dose (6) Hypoxia: Plan: (2) Hypoxia: Plan: -respiratory biofire panel negative, CXR without focal infiltrates, no volume overloaded on TTE -hypoxia related to hypoventilation / OHS and untreated JACLYN -Incentive spirometry, prn albuterol, flutter valve, prn O2 -room air today, resolved (7) Mass of left thigh: Plan: (5) Mass of left thigh: Plan: -left upper thigh swelling -Patient and state that it frequently drains -reviewed ultrasound 07/06 - no drainable fluid collection -this is severe edema, anasarca is likely related to right heart failure (see echo) and lymphedema related to large pannus lying on thighs -postoperatively will benefit from increased diuretic (home lasix 20 mg) - increased to 40 mg -explained the thigh swelling to them, but limited understanding why it can't be 'cut out' or drained (8) DM II (diabetes mellitus, type II), controlled: Plan: (9) DM II (diabetes mellitus, type II), controlled: Plan: -Normally takes 30 units HS Tresiba, with sliding scale, Ozempic -on glargine and aspart managed by pharmacist -BG reviewed and at goal 07/08 (9) Hypothyroidism: Plan: (12) Hypothyroidism: Plan: -Continue levothyroxine (10) Liver fibrosis: Plan: (11) Liver fibrosis: Plan: -Follows with [facility] Hepatology -LFT's WNL (11) Anxiety: Plan: (13) Anxiety: Plan: -Continue buspar and Clompiramine (12) HTN (hypertension): Plan: (7) HTN (hypertension): Plan: -Stable - less labile BP last 24h, currently normotensive to high -Continue metoprolol and lisinopril held (13) Hyponatremia: Plan: (8) Hyponatremia: Plan: -Sodium today is 134 -euvolemic, monitor BMP (14) Hand arthritis: Plan: (14) Hand arthritis: Plan: bilateral hand deformity suspicious for psoriatic arthritis denies history of gout no MCP inflammation or deformity to suggest RA -obtained plain films of hands = deformity could be consistent with OA, RA, or psoriatic arthritis (15) CKD (chronic kidney disease) stage 3, GFR 30-59 ml/min: Plan: (15) CKD (chronic kidney disease) stage 3, GFR 30-59 ml/min: Plan: Cr increased from admission 1.34 --> 1.86. Baseline unknown -monitor daily -hold lisinopril Admission and Anticipated Discharge Date Admission Date: July 05, 2023 Subjective No pain at site of 2nd toe amp but R great toe is painful. No shortness of breath or chest pain. Hasn't tried CPAP for a long time. Takes half a lasix because "isn't it bad for the kidneys?" visiting in room Physical Exam 2 Physical Exam: PHYSICAL EXAMINATION Last 24h vital signs reviewed, see documentation in flowsheet General: looks good, sitting up in chair HEENT: Normocephalic, atraumatic, pupils round and equal, sclerae anicteric, no conjunctival injection, moist mucus membranes Lungs: Normal respiratory effort. Heart: Abdomen: large pannus with edema Extremities: Warm, dry, well-perfused. bilateral LE edema, R foot surgical dressing cdi joint deformities of DIP and PIP joints of both hands are present, no joint inflammation no deformity at MCPs. Skin: No obvious patches consistent with psoriasis, nails are thickened and clubbing is present Neuro: AOx4 , face symmetric, moves 4 extremities equally Psych: Normal affect and behavior Results & Data Results & Data Vital Signs (Past 12 Hours) Vital Signs Temp Pulse Pulse Resp BP Pulse Ox O2 Del Method 07/08/23 15:57 36.7 C 82 18 157/74 H 93 Room Air 07/08/23 15:28 79 07/08/23 11:40 36.5 C 77 18 148/76 H 96 Room Air 07/08/23 08:09 36.4 C L 87 19 183/79 H 90 Room Air 07/08/23 07:28 77 Laboratory Results 07/08/23 05:56 07/08/23 05:56 PG Care Time/CCT Total # of Minutes Spent Total Time Spent with Patient: Total time spent is greater than 50% in coordination of care (as documented) at patient's floor/unit and/or counseling patient: 35 minutes Coding Level of Care Code 62588 SUB INP/OBS CARE 2/35MIN Diagnoses Osteomyelitis of right foot M86.9 Osteomyelitis type: unspecified type Factor V Leiden D68.51 RVF (right ventricular failure) I50.810 JACLYN (obstructive sleep apnea) G47.33 Adrenal insufficiency E27.40 Hypoxia R09.02 Mass of left thigh R22.42 DM II (diabetes mellitus, type II), controlled E11.9 Diabetes mellitus complication status: with neurologic complications Hypothyroidism E03.9 Liver fibrosis K74.00 Anxiety F41.9 HTN (hypertension) I10 Hyponatremia E87.1 Hand arthritis M19.049 CKD (chronic kidney disease) stage 3, GFR 30-59 ml/min N18.30 (1) Osteomyelitis of right foot Osteomyelitis type: unspecified type Qualified Code(s): M86.9 - Osteomyelitis, unspecified (8) DM II (diabetes mellitus, type II), controlled Diabetes mellitus complication status: with neurologic complications
[2023-07-08] MEDS: SIMVASTATIN 40 MG TAB PO SCH (21:12)
[2023-07-08] MEDS: CLOMIPRAMINE HCL 25 MG CAPSULE PO SCH (21:12)
[2023-07-08] MEDS: MELATONIN 3 MG TAB PO PRN (21:26)
[2023-07-09] MEDS: CEFEPIME 2,000 MG in SYRINGE 0 ML IV SCH ×2 (05:37→17:27)
[2023-07-09] MEDS: LEVOTHYROXINE SODIUM 175 MCG TABLET PO SCH (05:37)
[2023-07-09 06:33] LABS: INR 1.8 (0.9-1.1); Partial Thromboplastin Ratio 2.1; Prothrombin Time 18.9 Seconds (9.0-12.0)
[2023-07-09 06:35] LABS: Partial Thromboplastin Time 58.7 Seconds (21.0-31.0)
[2023-07-09 07:24] LABS: Creatinine Clr Calc Pharmacy 34.6 ml/min; Est GFR (African American) 30.2 ml/min; Est GFR (Non-African American) 26.1 ml/min
--- NOTE | 2023-07-09 07:44 | Pharmacy Report ---
Pharmacy PK ABX Note - Date of Service July 09, 2023 - Assessment and Plan Assessment 07/09: Serum creatinine 1.91mg/dL today. Continue to dose vancomycin per levels due to unknown baseline. Toe culture with pinpoint growth, reincubating, await further identification. Blood cultures NG x48 hours. Status post right second toe amputation #2. Per ortho progress note "Recent out Patient wound cultures from [facility] have shown 4+ Klebsiella pneumoniae Morganella morganii, Enterobacter cloacae complex, PROTEUS VULGARIS, Enterococcus faecalis." 07/08: Scr 1.86 today. Will continue to dose per levels at this time. Blood cultures and toe culture pending. 07/07: 68 year old F receiving vancomycin and cefepime for treatment of R foot osteomyelitis. Blood and surface wound culture pending. (+) POPEYE - SCr 1.34 -->1.61-->1.86 mg/dL today. Day #4 of antimicrobial therapy. Plan Vancomycin * Goal vancomycin trough 15-20mcg/mL for osteomyelitis/diabetic foot ulcer * Random vancomycin level this AM, 12.8mcg/mL. Safe to re-dose today. * Repeat vancomycin 1250mg IV X 1 (15 mg/kg per AdjBW of 81kg) and then will obtain a random level tomorrow AM to guide further dosing * Random level ordered for: 118 AM Pharmacy will continue to follow and will adjust dose/frequency as necessary. Thank you.
[2023-07-09] MEDS ORDERED: WARFARIN SOD 4 MG TAB PO ONE (08:00)
[2023-07-09] MEDS ORDERED: VANCOMYCIN HCL 1,250 MG in SODIUM CHLORIDE 0.9% 250 ML IV ONE (08:00)
[2023-07-09] MEDS: FAMOTIDINE 20 MG TAB PO SCH ×2 (08:25→20:55)
[2023-07-09] MEDS: PANTOprazole 40 MG TAB PO SCH (08:25)
[2023-07-09] MEDS: GABAPENTIN 300 MG CAP PO SCH ×3 (08:25→20:55)
[2023-07-09] MEDS: HYDROCORTISONE 10 MG TAB PO SCH ×2 (08:25→20:54)
[2023-07-09] MEDS: busPIRone 5 MG TAB PO SCH ×3 (08:25→20:53)
[2023-07-09] MEDS: METOPROLOL TARTRATE 25 MG TAB PO SCH ×2 (08:25→20:54)
[2023-07-09] MEDS: MICONAZOLE NITRATE POWDER 85 GM EXT SCH ×2 (08:26→20:55)
[2023-07-09] MEDS ORDERED: FUROSEMIDE 40 MG TAB PO SCH (09:00)
[2023-07-09] MEDS: LANTUS PER UNIT CHARGE SC SCH (09:40)
[2023-07-09] MEDS: POTASSIUM CHLORIDE 10 MEQ TABCR PO SCH (09:40)
[2023-07-09] MEDS: INSULIN ASPART PER UNIT CHARGE SC SCH ×4 (09:40→20:37)
[2023-07-09] MEDS: HEPARIN SODIUM/DEXTROSE 25,000 UNITS/500 ML BAG IV SCH (11:43)
--- NOTE | 2023-07-09 19:38 | Hospitalist Progress Note ---
Date of Service July 09, 2023 Assessment & Plan (1) Osteomyelitis of right foot: Plan: osteomyelitis of 2nd toe - s/p amputation by Dr. Kelly 07/07/23 remains on vancomycin and cefepime IV per Dr Kelly had good margins pathology report is pending if margins are clear then she has source control and IV antibiotics are not needed moving forward intra-op culture growing coag neg staph most [employer] species are sens to doxycycline, etc cont IV abx today; likely over to PO abx tomorrow (2) Factor V Leiden: Plan: Hx of DVT/PE 30+ years ago on chronic coumadin currently on heparin drip home coumadin dosing was 2mg every day except 4mg on Saturdays s/p 5mg dose on 07/07 s/p 5mg dose on 07/08 will give 4mg today INR in am suspect we will resume her usual regimen starting tomorrow (3) RVF (right ventricular failure): Plan: Moderately decreased RV function on echo 07/06/23 Suspect her abdominal swelling is ascites/body wall edema from her chronic cor pulmonale She was taking lasix at home - dose uncertain Her lasix here was increased to 40mg/day but with such her creatinine has risen Place lasix on hold and trend the creatinine (4) JACLYN (obstructive sleep apnea): Plan: has not been using any CPAP or BIPAP at home will need to see her sleep provider post-discharge (5) Adrenal insufficiency: Plan: Chronically on 15 mg PO hydrocortisone am and 5 HS at baseline can resume her usual dosing starting tomorrow (6) Hypoxia: Plan: resolved (7) Mass of left thigh: Plan: u/s of L thigh negative for focal lesion/mass both thighs look symmetric appears to be lymphedema (8) DM II (diabetes mellitus, type II), controlled: Plan: Cont glargine and aspart pharmacy providing glycemic oversight BSGs under reasonable control Hba1c 6.9% this admission Chronically on Tresiba, Novolog with meals, and Ozempic (9) Hypothyroidism: Plan: Continue levothyroxine Check TSH am (10) Liver fibrosis: Plan: Follows with [facility] Hepatology LFTs wnl Suspect some of her abdominal findings and LE edema could be from liver disease (11) Anxiety: Plan: Continue buspar and Clomipramine but will associate counsel patient that latter causes considerable side effects including weight gain, etc Consider d/c of TCA (12) HTN (hypertension): Plan: Continue metoprolol HOLD lisinopril due to rise in creatinine (13) Hyponatremia: Plan: Recheck BMP am (14) Hand arthritis: Plan: b/l hands severe the exam findings look most c/w OA x-rays of hands - findings could be consistent with OA, RA, or psoriatic arthritis I don't see any inflammatory arthritis findings on exam today follow (15) CKD (chronic kidney disease) stage 3, GFR 30-59 ml/min: Plan: baseline renal function uncertain could try to get outside records from her PCP's office (16) Acute kidney injury: Plan: Cr 1.3 at admission Cr today 1.9 baseline creatinine uncertain but clearly has risen over last several days due to vancomycin? ATN in setting of her R 2nd toe infection? other cause? avoid nephrotoxic agents repeat BMP am Plan /daughter updated at bedside PT/OT both advising rehab post discharge Admission and Anticipated Discharge Date Admission Date: July 05, 2023 Subjective patient without complaints feeling good overall anxious to get home denies pain in right foot pt's daughter & were present at bedside during the visit patient confirms that she never had spreading cellulitis on top of the right foot when the 2nd toe was infected the infection was just confined to the toe itself denies any dyspnea at rest but has baseline ROBLES she complains of chronic abdominal distension but has been having normal stools Review of Systems Review of Systems: gen - no fevers or chills cv - no chest pain; chronic edema pulm - no dyspnea at rest, no cough; uses prn albuterol at home GI - no diarrhea Physical Exam Physical Exam: gen - obese, NAD, pleasant neck - no obvious JVD mouth - no thrush heart - RRR, s1 s2, no murmur lungs - CTA b/l abd - distended, body wall edema/lymphedema especially lower abdomen, NT, BS+ ext - 1+ edema b/l, pulses 2+ b/l skin - dressings intact right foot; 2nd toe is absent musculo - OA changes of PIPs and DIPs multiple fingers both hands Results & Data Results & Data Vital Signs (Past 12 Hours) Vital Signs Temp Pulse Pulse Pulse Resp BP BP 07/09/23 16:24 36.6 C 82 18 145/69 H 07/09/23 15:08 81 07/09/23 11:40 36.4 C L 76 20 127/67 07/09/23 08:01 07/09/23 07:46 36.3 C L 74 20 145/67 H Pulse Ox O2 Del Method O2 Flow Rate 07/09/23 16:24 93 Room Air 07/09/23 15:08 07/09/23 11:40 93 Room Air 07/09/23 08:01 100 Room Air, Nasal Cannula 2 07/09/23 07:46 100 Nasal Cannula 2 Laboratory Results Laboratory Results - last 24 hr 07/08/23 07/09/23 07/09/23 20:11 05:25 08:26 PT 18.9 H INR 1.8 H APTT 58.7 H* PTT Ratio 2.1 Creatinine 1.91 H Est Cr Clr Drug Dosing 34.6 Est GFR ( Amer) 30.2 Est GFR (Non-Af Amer) 26.1 POC Glucose 154 H 125 H Random Vancomycin 13.1 07/09/23 07/09/23 12:17 17:18 PT INR APTT PTT Ratio Creatinine Est Cr Clr Drug Dosing Est GFR ( Amer) Est GFR (Non-Af Amer) POC Glucose 207 H 83 Random Vancomycin PG Care Time/CCT Total # of Minutes Spent Total Time Spent with Patient: Total time spent is greater than 50% in coordination of care (as documented) at patient's floor/unit and/or counseling patient: Coding Level of Care Code 74923 SUB INP/OBS CARE 3/50MIN Diagnoses Osteomyelitis of right foot M86.9 Osteomyelitis type: unspecified type Factor V Leiden D68.51 RVF (right ventricular failure) I50.810 JACLYN (obstructive sleep apnea) G47.33 Adrenal insufficiency E27.40 Hypoxia R09.02 Mass of left thigh R22.42 DM II (diabetes mellitus, type II), controlled E11.9 Diabetes mellitus complication status: with neurologic complications Hypothyroidism E03.9 Liver fibrosis K74.00 Anxiety F41.9 HTN (hypertension) I10 Hyponatremia E87.1 Hand arthritis M19.049 CKD (chronic kidney disease) stage 3, GFR 30-59 ml/min N18.30 Acute kidney injury N17.9 (1) Osteomyelitis of right foot Osteomyelitis type: unspecified type Qualified Code(s): M86.9 - Osteomyelitis, unspecified (8) DM II (diabetes mellitus, type II), controlled Diabetes mellitus complication status: with neurologic complications
[2023-07-09] MEDS: CLOMIPRAMINE HCL 25 MG CAPSULE PO SCH (20:53)
[2023-07-09] MEDS: SIMVASTATIN 40 MG TAB PO SCH (20:54)
[2023-07-09] MEDS: EUCERIN CR 120 GM JAR EXT SCH (20:55)
[2023-07-09] MEDS: MELATONIN 3 MG TAB PO PRN (22:46)
[2023-07-09] MEDS: ACETAMINOPHEN 325 MG TAB PO PRN (22:46)
[2023-07-10] MEDS: HEPARIN SODIUM/DEXTROSE 25,000 UNITS/500 ML BAG IV SCH ×2 (03:30→20:36)
[2023-07-10] MEDS: CEFEPIME 2,000 MG in SYRINGE 0 ML IV SCH (05:38)
[2023-07-10] MEDS: LEVOTHYROXINE SODIUM 175 MCG TABLET PO SCH (05:38)
[2023-07-10 06:37] LABS: Calcium 8.6 mg/dl (8.6-10.3); Potassium 5.6 mmol/L (3.5-5.1)
[2023-07-10 06:43] LABS: BUN Creatinine Ratio 22.4 (10-20); Est GFR (African American) 29.3 ml/min; Est GFR (Non-African American) 25.3 ml/min
[2023-07-10 06:44] LABS: INR 2.7 (0.9-1.1); Partial Thromboplastin Ratio 2.4; Prothrombin Time 27.6 Seconds (9.0-12.0)
[2023-07-10 06:56] LABS: Partial Thromboplastin Time 68.3 Seconds (21.0-31.0)
--- NOTE | 2023-07-10 07:36 | Orthopedic Progress Note ---
Date of Service July 10, 2023 Assessment & Plan (1) Osteomyelitis of right foot: Plan: Patient seen and examined at beside in room 276-2. Patient is status post day #3 right second toe amputation (DOS:07/07/23) Preliminary cultures show Staph. Clear margins were obtained. Source control obtained. Suggest PO abx therapy for 10 days after discharge. Patient is weight bearing as tolerated. She will follow up in office 7-14 days after discharge. Dry sterile dressing applied with out incident. Skin well co-apted sutures intact. Will continue to follow while in house. Thank you for allowing me to participate in the care of this Patient. (2) DM II (diabetes mellitus, type II), controlled: Admission and Anticipated Discharge Date Admission Date: July 05, 2023 Subjective Patient seen at bedside in room 276-2 with no complaints. Patient is status post day #3 right second toe amputation (DOS:07/07/23). Cultures from second toe show Staph. Physical Exam Constitutional: cooperative, comfortable, + lethargic and + overweight Eyes: normal visual cho by confrontation Neck: normal visual inspection Respiratory: normal respiratory effort Cardiovascular: Rate/Rhythm: regular rate and regular rhythm Vessels: posterior tibial pulses present and dorsalis pedis pulses present Skin: + incision (Right second toe amputation well co-apted. No signs of infection.) Neurologic: moves all extremities (Absent lower extremity epicritic sensation) Psychiatric: Orientation: alert, oriented x 3 and cooperative Results & Data Vital Signs (Past 12 Hours) Vital Signs Temp Pulse Pulse Resp BP Pulse Ox O2 Del Method 07/10/23 03:20 36.3 C L 71 18 124/67 95 Room Air 07/09/23 23:05 36.3 C L 83 18 164/74 H 93 Room Air 07/09/23 22:32 83 Diagnostic Findings [facility] [address] [place] [address] / Director: Napoleon Rollins M.D. Clinical Laboratory Report Name: ELMER BENNETT Acct: [id number] Status: ADM IN : 1955 [facility] [place] Date: 07/05/23 Age: 68 Sex: F Dis Date: Loc: [address]/Bed: N[facility] Spec: [id number] Collected: 07/07/23 Received: 07/07/[address]: Robby Kelly, DPM, MS Copy To: Virginia Schwartz D.OMary Source: Toe,Right Second OV Order: Ordered: Aer/January Cult/Sm Comments: Comment 1. Right second toe culture Procedure Result Verified Site Gram Stain Final 07/07/23 Gram Stain Result Few WBCs Seen No Organisms Seen Aero/January Cult Preliminary 07/09/23 Organism 1 Coag negative Staphylococcus Quantity Rare Sens No Sensitivities to Follow Name: ELMER BENNETT : 1955 PAGE 1 Printed: 07/10/23 3343 END OF REPORT (1) Osteomyelitis of right foot Osteomyelitis type: unspecified type Qualified Code(s): M86.9 - Osteomyelitis, unspecified (2) DM II (diabetes mellitus, type II), controlled Diabetes mellitus complication status: with neurologic complications
[2023-07-10] MEDS ORDERED: PATIROMER CALCIUM SORBITEX 8.4 GM PACK PO STA (07:54)
[2023-07-10] MEDS ORDERED: VANCOMYCIN HCL 1,250 MG in SODIUM CHLORIDE 0.9% 250 ML IV ONE (09:00)
[2023-07-10] MEDS: GABAPENTIN 300 MG CAP PO SCH ×3 (09:03→20:31)
[2023-07-10] MEDS: HYDROCORTISONE 10 MG TAB PO SCH (09:04)
[2023-07-10] MEDS: EUCERIN CR 120 GM JAR EXT SCH ×2 (09:04→20:32)
[2023-07-10] MEDS: FAMOTIDINE 20 MG TAB PO SCH ×2 (09:04→20:31)
[2023-07-10] MEDS: MICONAZOLE NITRATE POWDER 85 GM EXT SCH ×2 (09:06→20:33)
[2023-07-10] MEDS: METOPROLOL TARTRATE 25 MG TAB PO SCH (09:06)
[2023-07-10] MEDS: busPIRone 5 MG TAB PO SCH ×3 (09:06→20:32)
[2023-07-10] MEDS: PANTOprazole 40 MG TAB PO SCH (09:06)
[2023-07-10] MEDS: INSULIN ASPART PER UNIT CHARGE SC SCH ×4 (09:07→20:22)
[2023-07-10] MEDS: LANTUS PER UNIT CHARGE SC SCH (09:15)
--- NOTE | 2023-07-10 12:40 | Hospitalist Progress Note ---
Date of Service July 10, 2023 Assessment & Plan (1) Hyperkalemia: Plan: 2nd to #2 in setting of SHAHID inhibitor use, potassium use, etc. has baseline CKD - staging uncertain due to lack of outside records HOLD potassium supplement HOLD lisinopril patiromer x 1 now repeat K level later in the day -- improved, level now 5 bmp am (2) Acute kidney injury: Plan: Cr 1.3 at admission Cr again today 1.9 baseline creatinine uncertain but clearly has risen over last several days due to vancomycin? ATN in setting of her R 2nd toe infection? other cause? avoid nephrotoxic agents hold SHAHID hold K supplement hold lasix attempt to get outside records to see what baseline renal function is BMP am check a u/a - look for casts (3) Noninfected skin tear of right leg: Plan: traumatic right benjaimn wound care consult for recs in meantime - xeroform over the tear, then abd, then kerlix (4) Osteomyelitis of right foot: Plan: osteomyelitis of 2nd toe - s/p amputation by Dr. Kelly 07/07/23 remains on vancomycin and cefepime IV - stopping both today per Dr Kelly had good margins pathology report - no osteo seen on the slides viewed, thus clear margins obtained since margins are clear then she presumably has source control and IV antibiotics are not needed moving forward intra-op culture grew coag neg staph most [employer] species at [facility] based on biogram are sens to doxycycline, etc previous cultures from right foot (via [facility] system) with morganella, proteus, etc. thus - 10 days of cipro for gram neg, and 10 days of doxy for BREAD STACKER (5) Factor V Leiden: Plan: Hx of DVT/PE 30+ years ago on chronic coumadin currently on heparin drip home coumadin dosing was 2mg every day except 4mg on Saturdays s/p 5mg dose on 07/07 s/p 5mg dose on 07/08 s/p 4mg 07/09 will give 2mg today (usual home dose) INR today noted (2.7) INR am plan to stop heparin drip tomorrow if INR >2 (6) RVF (right ventricular failure): Plan: Moderately decreased RV function on echo 07/06/23 Suspect her abdominal swelling is ascites/body wall edema from her chronic cor pulmonale She was taking lasix at home - dose uncertain Her lasix here was increased to 40mg/day but with such her creatinine has risen Placed lasix on hold and trend the creatinine (7) JACLYN (obstructive sleep apnea): Plan: has not been using any CPAP or BIPAP at home will need to see her sleep provider post-discharge (8) Adrenal insufficiency: Plan: Chronically on 15 mg PO hydrocortisone am and 5 HS at baseline resume her usual dosing starting tomorrow (9) Hypoxia: Plan: resolved (10) Mass of left thigh: Plan: u/s of L thigh negative for focal lesion/mass both thighs look symmetric appears to be lymphedema (11) DM II (diabetes mellitus, type II), controlled: Plan: Cont glargine and aspart pharmacy providing glycemic oversight BSGs under reasonable control Hba1c 6.9% this admission Chronically on Tresiba, Novolog with meals, and Ozempic (12) Hypothyroidism: Plan: Continue levothyroxine TSH minimally elevated will advise a recheck of TSH in 1 month and if still high then increase synthroid dose as outpatient at that time (13) Liver fibrosis: Plan: Follows with [facility] Hepatology LFTs wnl Suspect some of her abdominal findings and LE edema could be from liver disease (14) Anxiety: Plan: Continue buspar and Clomipramine but will food 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 that latter causes considerable side effects including weight gain, etc Consider d/c of TCA (15) HTN (hypertension): Plan: Continue metoprolol HOLD lisinopril due to rise in creatinine (16) Hyponatremia: Plan: Na 133 today trend repeat BMP am tomorrow (17) Hand arthritis: Plan: b/l hands severe the exam findings look most c/w OA x-rays of hands - findings could be consistent with OA, RA, or psoriatic ar thritis I don't see any inflammatory arthritis findings on exam follow (18) CKD (chronic kidney disease) stage 3, GFR 30-59 ml/min: Plan: baseline renal function uncertain try to get outside records from her PCP's office Plan /daughter updated at bedside yesterday PT/OT both advising rehab post discharge --> initially she was willing to consider rehab at [facility] in [place] later in the day she changed her mind --> now wants home with home PT/OT/nursing not ideal, but can give this a try if feels he can care for her tremors - checked ammonia to ensure no hepatic encephalopathy - ammonia wnl check VBG am - r/o CO2 retention as cause of tremor Admission and Anticipated Discharge Date Admission Date: July 05, 2023 Subjective patient w/o any new complaints PT/OT both advised rehab we had lengthy discussion about this she has been to [facility] rehab in [place] in the past was initially willing to consider this late in the day she changed her mind (after speaking with ) - report she does NOT want to attend rehab, wants home with home PT/OT/nursing she feels confident she can walk safely at home unfortunately when getting up from the wheelchair she hit her right benjamin on a component and tore the skin overlying the mid-benjamin decent amount of bleeding up staff pt states she thinks she sees a fruit stuffer with [facility] system but isn't sure she also does not know what her baseline renal function is tele overnight wnl Review of Systems Review of Systems: gen - no fevers or chills cv - no chest pain pulm - baseline ROBLES GI - no nausea/emesis Physical Exam Physical Exam: gen - obese, NAD, sitting in chair neck - ? JVD even sitting upright at 90 degrees ? mouth - no thrush heart - RRR, s1 s2, no murmur lungs - CTA b/l abd - distended, body wall edema/lymphedema especially lower abdomen, ?ascites, NT, BS+ ext - 1+ edema b/l, pulses 2+ b/l skin - dressings intact right foot; 2nd toe is absent; I did not remove dressings; fresh skin tear mid benjamin on right, slightly lateral; at deepest point of the tear it is about 3mm deep neuro - mild tremors noted Results & Data Results & Data Vital Signs (Past 12 Hours) Vital Signs Temp Pulse Pulse Resp BP Pulse Ox O2 Del Method 07/10/23 11:18 36.4 C L 79 20 145/67 H 94 Room Air 07/10/23 10:15 Room Air, Nasal Cannula 07/10/23 07:45 36.3 C L 70 20 138/69 90 Room Air 07/10/23 07:34 76 07/10/23 03:20 36.3 C L 71 18 124/67 95 Room Air Laboratory Results Laboratory Results - last 24 hr 07/09/23 07/09/23 07/10/23 17:18 20:07 05:34 PT 27.6 H INR 2.7 H APTT 68.3 H* PTT Ratio 2.4 Sodium 133 L Potassium 5.6 H Chloride 100 Carbon Dioxide 25 Anion Gap 8 BUN 44 H Creatinine 1.96 H Est Cr Clr Drug Dosing 34.0 Est GFR ( Amer) 29.3 Est GFR (Non-Af Amer) 25.3 BUN/Creatinine Ratio 22.4 H Glucose 150 H POC Glucose 83 128 H Calcium 8.6 TSH 5.015 H Random Vancomycin 16.4 07/10/23 07/10/23 08:02 12:36 PT INR APTT PTT Ratio Sodium Potassium Chloride Carbon Dioxide Anion Gap BUN Creatinine Est Cr Clr Drug Dosing Est GFR ( Amer) Est GFR (Non-Af Amer) BUN/Creatinine Ratio Glucose POC Glucose 158 H 107 H Calcium TSH Random Vancomycin PG Care Time/CCT Total # of Minutes Spent Total Time Spent with Patient: Total time spent is greater than 50% in coordination of care (as documented) at patient's floor/unit and/or counseling patient: Coding Level of Care Code 29621 SUB INP/OBS CARE 3/50MIN Diagnoses Hyperkalemia E87.5 Acute kidney injury N17.9 Noninfected skin tear of right leg S81.811A Osteomyelitis of right foot M86.9 Osteomyelitis type: unspecified type Factor V Leiden D68.51 RVF (right ventricular failure) I50.810 JACLYN (obstructive sleep apnea) G47.33 Adrenal insufficiency E27.40 Hypoxia R09.02 Mass of left thigh R22.42 DM II (diabetes mellitus, type II), controlled E11.9 Diabetes mellitus complication status: with neurologic complications Hypothyroidism E03.9 Liver fibrosis K74.00 Anxiety F41.9 HTN (hypertension) I10 Hyponatremia E87.1 Hand arthritis M19.049 CKD (chronic kidney disease) stage 3, GFR 30-59 ml/min N18.30 (4) Osteomyelitis of right foot Osteomyelitis type: unspecified type Qualified Code(s): M86.9 - Osteomy elitis, unspecified (11) DM II (diabetes mellitus, type II), controlled Diabetes mellitus complication status: with neurologic complications
--- NOTE | 2023-07-10 14:04 | Pharmacy Report ---
Pharmacy Glycemic Short Note 2 - Date of Service July 10, 2023 - Glycemic Short BSG Results (Last 24 hours): 07/09/23 07/09/23 07/10/23 17:18 20:07 05:34 Glucose 150 H POC Glucose 83 128 H 07/10/23 07/10/23 08:02 12:36 Glucose POC Glucose 158 H 107 H OUTPATIENT ANTIDIABETIC REGIMEN: * Tresiba 30 units SQ daily * Novolog 17 units with breakfast and lunch, 12 units with dinner * Ozempic SQ HbA1c = 6.9% ASSESSMENT: 07/10: * Leticia received 37 units of insulin yesterday of which 10 were basal * Fasting BSG this AM slightly elevated, will continue current basal dosage today and reevaluate tomorrow. * Glycemic stressors include a heparin drip and hydrocortisone 15mg BID, serum creatine still elevated, monitor for insulin accumulation, antibiotics discontinued today. * Dinnertime BSG yesterday slightly below goal range, Lunchtime BSG elevated, will loosen correction factor. All other BSGs were acceptable. 07/08: * Leticia received 11 units of bolus insulin yesterday * Fasting BSG this AM elevated, Lantus on hold due to BSG below goal, restart Lantus at 1/3 of home dose and reassess in AM * Mealtime BSGs fairly well controlled, will tighten carbohydrate ratio slightly 07/06: * 68 y/o F admitted with R foot Osteomyelitis. She has history of diabetes managed on basal and bolus insulins at home as well as Ozempic SQ weekly. * She was started on basal insulin 15 units BID yesterday, but lunch BSG decreased to 79 mg/dl today. Will hold off on basal insulin today and re- assess dose tomorrow. * Renal function seems to be worsening at this time. Serum creat increased to 1.61 mg/dl today. * Novolog parameters loosened with dinner to prevent hypoglycemia. PLAN FOR INPATIENT GLYCEMIC CONTROL: * Hold outpatient diabetes medications * Basal insulin * Lantus 10 units SC QAM * Bolus insulin * NovoLog per scale ACHS or Q6hrs while NPO * Goal Range: Low 110 mg/dL - High 140 mg/dL * Correction Factor: 30 mg/dL/unit * Nutritional / Prandial insulin per carb ratio of 1 unit per 8 grams CHO consumed
[2023-07-10 14:08] LABS: Partial Thromboplastin Ratio 1.5
[2023-07-10 14:13] LABS: Partial Thromboplastin Time 42.7 Seconds (21.0-31.0)
[2023-07-10 14:48] LABS: Appearance Urine Clear (Clear); Bacteria Urine Automated Negative (Negative); Bilirubin Urine Negative (Negative); Blood Urine 1+ (Negative); Cast Urine Automated 0 /lpf (0-5); Color Urine Yellow; Epithelial Cell Urine Auto 20-30 /lpf (0-5); Glucose Urine UA Negative (Negative); Ketones Urine Negative (Negative); Leukocyte Esterase Urine Negative (Negative); Nitrite Urine Negative (Negative); Protein Urine 1+ (Negative); Urobilinogen Urine Negative (Negative); pH Urine 5.5 (4.5-7.5)
[2023-07-10] MEDS: WARFARIN SOD 2 MG TAB PO SCH (15:45)
[2023-07-10 19:16] LABS: Partial Thromboplastin Ratio 1.8; Partial Thromboplastin Time 49.8 Seconds (21.0-31.0)
[2023-07-10] MEDS: DOXYCYCLINE HYCLATE 100 MG CAP PO SCH (20:29)
[2023-07-10] MEDS: METOPROLOL TARTRATE 50 MG TAB PO SCH (20:30)
[2023-07-10] MEDS: CIPROFLOXACIN 500 MG TAB PO SCH (20:31)
[2023-07-10] MEDS: ADVANCED PROBIOTIC 1250 MG CAPSULE PO SCH (20:32)
[2023-07-10] MEDS: CLOMIPRAMINE HCL 25 MG CAPSULE PO SCH (20:33)
[2023-07-10] MEDS: MELATONIN 3 MG TAB PO PRN (21:48)
[2023-07-10] MEDS: ACETAMINOPHEN 325 MG TAB PO PRN (21:48)
[2023-07-11] MEDS: LEVOTHYROXINE SODIUM 175 MCG TABLET PO SCH (05:05)
[2023-07-11 06:03] LABS: Base Excess VBG 2.8 mEq/L; HCO3 VBG 29 mmol/L; Oxygen Saturation VBG 86.6 %; PCO2 VBG 47 mmHg (38-50); PO2 VBG 53 mmHg; pH VBG 7.39 (7.36-7.41)
[2023-07-11 06:25] LABS: BUN Creatinine Ratio 24.4 (10-20); Calcium 9.6 mg/dl (8.6-10.3); Creatinine Clr Calc Pharmacy 36.7 ml/min; Est GFR (African American) 32.5 ml/min; Potassium 4.7 mmol/L (3.5-5.1)
[2023-07-11 07:17] LABS: INR 2.7 (0.9-1.1); Partial Thromboplastin Ratio 1.8; Prothrombin Time 28.2 Seconds (9.0-12.0)
[2023-07-11 07:20] LABS: Partial Thromboplastin Time 51.4 Seconds (21.0-31.0)
[2023-07-11] MEDS: PANTOprazole 40 MG TAB PO SCH (08:32)
[2023-07-11] MEDS: HYDROCORTISONE 10 MG TAB PO SCH ×2 (08:32→17:13)
[2023-07-11] MEDS: GABAPENTIN 300 MG CAP PO SCH ×3 (08:35→21:28)
[2023-07-11] MEDS: CIPROFLOXACIN 500 MG TAB PO SCH ×2 (08:35→21:27)
[2023-07-11] MEDS: FAMOTIDINE 20 MG TAB PO SCH ×2 (08:35→21:28)
[2023-07-11] MEDS: ADVANCED PROBIOTIC 1250 MG CAPSULE PO SCH (08:35)
[2023-07-11] MEDS: busPIRone 5 MG TAB PO SCH ×3 (08:35→21:26)
[2023-07-11] MEDS: METOPROLOL TARTRATE 50 MG TAB PO SCH ×2 (08:36→21:28)
[2023-07-11] MEDS: DOXYCYCLINE HYCLATE 100 MG CAP PO SCH ×2 (08:36→21:27)
[2023-07-11] MEDS: EUCERIN CR 120 GM JAR EXT SCH ×2 (08:36→21:28)
[2023-07-11] MEDS: MICONAZOLE NITRATE POWDER 85 GM EXT SCH ×2 (08:37→21:29)
[2023-07-11] MEDS: INSULIN ASPART PER UNIT CHARGE SC SCH ×4 (08:45→21:21)
[2023-07-11] MEDS: LANTUS PER UNIT CHARGE SC SCH (08:46)
[2023-07-11] MEDS: HEPARIN SODIUM/DEXTROSE 25,000 UNITS/500 ML BAG IV SCH ×2 (13:22→20:07)
[2023-07-11] MEDS: WARFARIN SOD 2 MG TAB PO SCH (17:12)
--- NOTE | 2023-07-11 20:15 | Hospitalist Progress Note ---
Date of Service July 11, 2023 Assessment & Plan (1) Hyperkalemia: Plan: 2nd to #2 in setting of SHAHID inhibitor use, potassium use, etc. s/p patiromer with resolution cont to HOLD potassium supplement and lisinopril bmp am (2) Acute kidney injury: Plan: Cr 1.3 at admission Cr 1.8 today baseline creatinine 03/2023 - 1.5 per records obtained from PCP's office POPEYE due to vancomycin? ATN in setting of her R 2nd toe infection? other cause? avoid nephrotoxic agents hold SHAHID hold K supplement hold lasix u/a bland no rash to suggest interstitial nephritis BMP am (3) Noninfected skin tear of right leg: Plan: traumatic right benjamin wound care consult for recs appreciated (4) Osteomyelitis of right foot: Plan: osteomyelitis of 2nd toe - s/p amputation by Dr. Kelly 07/07/23 s/p vancomycin and cefepime IV - stopped yesterday, transitioned to PO cipro w ith doxy per Dr Kelly had good margins pathology report - no osteo seen on the slides viewed, thus clear margins obtained since margins are clear then she presumably has source control and IV ant ibiotics are not needed moving forward intra-op culture grew coag neg staph most HANGER species at [facility] based on biogram are sens to doxycycline, etc previous cultures from right foot (via [facility] system) with the following -- culture taken late June 2023 - * 4+ klebsiella pneumoniae -- sens to cipro * 2+ morganella morganii -- sens to cipro * 4+ enterobacter cloacae complex --sens to cipro * 1+ proteus vulgaris -- no sensitivities listed * 2+ enterococcus faecalis -- sens to PCN thus - 7-10 days of cipro for gram neg, and 7-10 days of doxy for HANGER (5) Factor V Leiden: Plan: Hx of DVT/PE 30+ years ago on chronic coumadin currently on heparin drip home coumadin dosing was 2mg every day except 4mg on Saturdays s/p 5mg dose on 07/07 s/p 5mg dose on 07/08 s/p 4mg 07/09 s/p 2mg 07/10 give 2mg today (usual home dose) INR 2.7 again INR am stop heparin drip (6) RVF (right ventricular failure): Plan: Moderately decreased RV function on echo 07/06/23 Suspect her abdominal swelling is ascites/body wall edema from her chronic cor pulmonale She was taking lasix at home - dose uncertain Her lasix here was increased to 40mg/day but with such her creatinine asha to 1.9 suggesting intravascular volume depletion Placed lasix on hold and trend the creatinine (7) JACLYN (obstructive sleep apnea): Plan: has not been using any CPAP or BIPAP at home will need to see her sleep provider post-discharge trial of CPAP w/ nasal pillows (8) Adrenal insufficiency: Plan: Chronically on 15 mg PO hydrocortisone am and 5 HS at baseline resumed her usual dosing (9) Hypoxia: Plan: resolved, but borderline at times; will need 2-step (10) Mass of left thigh: Plan: u/s of L thigh negative for focal lesion/mass both thighs look symmetric appears to be lymphedema (11) DM II (diabetes mellitus, type II), controlled: Plan: Cont glargine and aspart pharmacy providing glycemic oversight BSGs under reasonable control Hba1c 6.9% this admission Chronically on Tresiba, Novolog with meals, and Ozempic (12) Hypothyroidism: Plan: Continue levothyroxine TSH minimally elevated will advise a recheck of TSH in 1 month and if still high then increase synthroid dose as outpatient at that time (13) Liver fibrosis: Plan: Follows with [facility] Hepatology LFTs wnl Suspect some of her abdominal findings and LE edema could be from liver disease ammonia wnl (14) Anxiety: Plan: Continue buspar and Clomipramine but will counseling center manager patient that latter causes considerable side effects including weight gain, etc Consider d/c of TCA (15) HTN (hypertension): Plan: Continue metoprolol HOLD lisinopril due to POPEYE (16) Hyponatremia: Plan: Na 134 today repeat BMP am (17) Hand arthritis: Plan: b/l hands severe the exam findings look most c/w OA x-rays of hands - findings could be consistent with OA, RA, or psoriatic arthritis I don't see any inflammatory arthritis findings on exam follow she has not complained of any pain this week to me (18) CKD (chronic kidney disease) stage 3, GFR 30-59 ml/min: Plan: baseline renal function --- records from PCP -- Cr 1.5 in 03/2023 Plan updated at bedside today dispo - SNF in [place] Admission and Anticipated Discharge Date Admission Date: July 05, 2023 Subjective pt w/o new complaints we had discussion about her right heart failure and that untreated JACLYN likely the cause of such she used CPAP only briefly 1-2 years ago- couldn't tolerate mask willing to try nasal pillows here states she would rip off the mask at night shortly after going to bed tele overnight wnl patient HAS decided to pursue rehab Review of Systems Review of Systems: gen - no fevers cv - no chest pain pulm - baseline ROBLES GI - no diarrhea Physical Exam Physical Exam: gen - obese, NAD, sitting at side of bed neck - suspected JVD mouth - no thrush, MMM heart - RRR, s1 s2, 2/6 BLAKE LSB lungs - CTA b/l abd - very distended, body wall edema/lymphedema especially lower abdomen, NT, BS+ ext - 1+ edema b/l, pulses 2+ b/l skin - dressings intact right foot - I removed them; 2nd toe is absent; sutures intact; wound bed clean; venous congestive changes of foot; dressing on R benjamin intact (I did not remove them) neuro - mild tremors noted Results & Data Results & Data Vital Signs (Past 12 Hours) Vital Signs Temp Pulse Pulse Resp BP Pulse Ox O2 Del Method 07/11/23 17:35 91 H 07/11/23 14:46 36.5 C 82 20 162/51 H 91 Room Air 07/11/23 11:50 36.6 C 71 20 170/66 H 92 Room Air Laboratory Results Laboratory Results - last 24 hr 07/11/23 07/11/23 07/11/23 05:47 08:07 11:56 PT 28.2 H INR 2.7 H APTT 51.4 H* PTT Ratio 1.8 VBG pH 7.39 VBG pCO2 47 VBG pO2 53 VBG HCO3 29 VBG O2 Saturation 86.6 VBG Base Excess 2.8 Sodium 134 L Potassium 4.7 Chloride 99 Carbon Dioxide 28 Anion Gap 7 BUN 44 H Creatinine 1.80 H Est Cr Clr Drug Dosing 36.7 Est GFR ( Amer) 32.5 Est GFR (Non-Af Amer) 28.0 BUN/Creatinine Ratio 24.4 H Glucose 140 H POC Glucose 142 H 143 H Calcium 9.6 11/09/23 17:19 PT INR APTT PTT Ratio VBG pH VBG pCO2 VBG pO2 VBG HCO3 VBG O2 Saturation VBG Base Excess Sodium Potassium Chloride Carbon Dioxide Anion Gap BUN Creatinine Est Cr Clr Drug Dosing Est GFR ( Amer) Est GFR (Non-Af Amer) BUN/Creatinine Ratio Glucose POC Glucose 128 H Calcium PG Care Time/CCT Total # of Minutes Spent Total Time Spent with Patient: Total time spent is greater than 50% in coordination of care (as documented) at patient's floor/unit and/or counseling patient: Coding Level of Care Code 83226 SUB INP/OBS CARE 3/50MIN Diagnoses Hyperkalemia E87.5 Acute kidney injury N17.9 Noninfected skin tear of right leg S81.811A Osteomyelitis of right foot M86.9 Osteomyelitis type: unspecified type Factor V Leiden D68.51 RVF (right ventricular failure) I50.810 JACLYN (obstructive sleep apnea) G47.33 Adrenal insufficiency E27.40 Hypoxia R09.02 Mass of left thigh R22.42 DM II (diabetes mellitus, type II), controlled E11.9 Diabetes mellitus complication status: with neurologic complications Hypothyroidism E03.9 Liver fibrosis K74.00 Anxiety F41.9 HTN (hypertension) I10 Hyponatremia E87.1 Hand arthritis M19.049 CKD (chronic kidney disease) stage 3, GFR 30-59 ml/min N18.30 (4) Osteomyelitis of right foot Osteomyelitis type: unspecified type Qualified Code(s): M86.9 - Osteomyelitis, unspecified (11) DM II (diabetes mellitus, type II), controlled Diabetes mellitus complication status: with neurologic complications
[2023-07-11] MEDS: CLOMIPRAMINE HCL 25 MG CAPSULE PO SCH (21:27)
[2023-07-11] MEDS: MELATONIN 3 MG TAB PO PRN (22:54)
[2023-07-12] MEDS: LEVOTHYROXINE SODIUM 175 MCG TABLET PO SCH (05:45)
[2023-07-12 07:06] LABS: BUN Creatinine Ratio 25.4 (10-20); Calcium 9.3 mg/dl (8.6-10.3); Creatinine Clr Calc Pharmacy 38.8 ml/min; Est GFR (African American) 35.1 ml/min; Est GFR (Non-African American) 30.2 ml/min; Potassium 4.5 mmol/L (3.5-5.1)
[2023-07-12 07:15] LABS: INR 2.4 (0.9-1.1); Prothrombin Time 24.8 Seconds (9.0-12.0)
[2023-07-12] MEDS: GABAPENTIN 300 MG CAP PO SCH ×3 (08:26→20:20)
[2023-07-12] MEDS: METOPROLOL TARTRATE 50 MG TAB PO SCH ×2 (08:26→20:18)
[2023-07-12] MEDS: CIPROFLOXACIN 500 MG TAB PO SCH ×2 (08:27→20:20)
[2023-07-12] MEDS: EUCERIN CR 120 GM JAR EXT SCH ×2 (08:27→20:17)
[2023-07-12] MEDS: DOXYCYCLINE HYCLATE 100 MG CAP PO SCH ×2 (08:27→20:19)
[2023-07-12] MEDS: FAMOTIDINE 20 MG TAB PO SCH ×2 (08:27→20:18)
[2023-07-12] MEDS: HYDROCORTISONE 10 MG TAB PO SCH ×2 (08:28→17:58)
[2023-07-12] MEDS: PANTOprazole 40 MG TAB PO SCH (08:29)
[2023-07-12] MEDS: busPIRone 5 MG TAB PO SCH ×3 (08:29→20:19)
[2023-07-12] MEDS: MICONAZOLE NITRATE POWDER 85 GM EXT SCH ×2 (08:29→20:22)
[2023-07-12] MEDS: ADVANCED PROBIOTIC 1250 MG CAPSULE PO SCH (08:29)
[2023-07-12] MEDS: INSULIN ASPART PER UNIT CHARGE SC SCH ×4 (08:41→21:53)
[2023-07-12] MEDS: LANTUS PER UNIT CHARGE SC SCH (08:41)
--- NOTE | 2023-07-12 14:46 | Pharmacy Report ---
Pharmacy Glycemic Sign Off Nt - Date of Service July 12, 2023 - Assessment & Plan ASSESSMENT: * Pharmacy was consulted by Javi Pearson on 07/05 for glycemic control and to write orders per [facility] inpatient glycemic control protocol. * Major changes made by pharmacy to antidiabetic regimen include: * Basal insulin adjusted from home dosage of 30 unit down to 10 units while inpatient * Novolog parameters adjusted to prevent hypoglycemia and hyperglycemia * Patient has been receiving/requiring approximately 30 units of insulin per day for adequate glycemic control * BSGs ranging 107 - 170 mg/dl over the past 48 hours * Regimen has require no adjustments over the past 48hrs to achieve this level of control * Do not anticipate further changes in patient status that would quickly deteriorate glycemic control (i.e. patient to be NPO for upcoming procedure, steroids tapering, starting tube feedings, etc). * She has been stable on PO Cipro and doxy x 48 hours as well as her home PO hydrocortisone * Renal function trending down PLAN FOR INPATIENT GLYCEMIC CONTROL: No changes needed to current regimen. * Continue basal insulin with Lantus 10 units SQ QAM * Continue NovoLog per scale ACHS/Q6hrs while NPO * Goal range = 110 - 140 mg/dl * CF = 30 mg/dl/unit * CR = 1 unit for ever 8 g CHO consumed * Pharmacy is signing off of glycemic consult and will no longer be making adjustments to inpatient regimen. Please feel free to re-consult if needed. Thank you.
[2023-07-12] MEDS: WARFARIN SOD 2 MG TAB PO SCH (17:58)
--- NOTE | 2023-07-12 20:19 | Hospitalist Progress Note ---
Date of Service July 12, 2023 Assessment & Plan (1) Hyperkalemia: Plan: 2nd to #2 in setting of SHAHID inhibitor use, potassium use, etc. s/p patiromer with resolution cont to HOLD potassium supplement and lisinopril bmp am (2) Acute kidney injury: Plan: Cr 1.3 at admission Cr 1.6 today baseline creatinine 03/2023 - 1.5 per records obtained from PCP's office POPEYE due to vancomycin? ATN in setting of her R 2nd toe infection? other cause? avoid nephrotoxic agents hold SHAHID hold K supplement hold lasix u/a bland no rash to suggest interstitial nephritis BMP am once again (3) Noninfected skin tear of right leg: Plan: traumatic right benjamin wound care consult for recs appreciated cont wound care / dressings (4) Osteomyelitis of right foot: Plan: osteomyelitis of 2nd toe - s/p amputation by Dr. Kelly 07/07/23 s/p vancomycin and cefepime IV - stopped yesterday, transitioned to PO cipro with doxy per Dr Kelly had good margins pathology report - no osteo seen on the slides viewed, thus clear margins obtained since margins are clear then she presumably has source control and IV antibiotics are not needed moving forward intra-op culture grew coag neg staph most PRODUCT MARKETING ENGINEER species at [facility] based on biogram are sens to doxycycline, etc previous cultures from right foot (via [facility] system) with the following -- culture taken late June 2023 - * 4+ klebsiella pneumoniae -- sens to cipro * 2+ morganella morganii -- sens to cipro * 4+ enterobacter cloacae complex --sens to cipro * 1+ proteus vulgaris -- no sensitivities listed * 2+ enterococcus faecalis -- sens to PCN thus - 7-10 days of cipro for gram neg, and 7-10 days of doxy for PRODUCT MARKETING ENGINEER (5) Factor V Leiden: Plan: Hx of DVT/PE 30+ years ago on chronic coumadin currently on heparin drip home coumadin dosing was 2mg every day except 4mg on Saturdays s/p 5mg dose on 07/07 s/p 5mg dose on 07/08 s/p 4mg 07/09 s/p 2mg 07/10 s/p 2mg 07/11 and again today INR 2.4 today repeat INR am (6) RVF (right ventricular failure): Plan: Moderately decreased RV function on echo 07/06/23 Suspect her abdominal swelling is ascites/body wall edema from her chronic cor pulmonale She was taking lasix at home - dose uncertain Her lasix here was increased to 40mg/day but with such her creatinine asha to 1.9 suggesting intravascular volume depletion Cont to hold lasix (7) JACLYN (obstructive sleep apnea): Plan: has not been using any CPAP or BIPAP at home will need to see her sleep provider post-discharge trial of CPAP w/ nasal pillows did not go well last pm - but willing to try again tonight (8) Adrenal insufficiency: Plan: Chronically on 15 mg PO hydrocortisone am and 5 HS at baseline Cont home doses (9) Hypoxia: Plan: resolved, but borderline at times; will need 2-step at d/c obesity-hypoventilation syndrome suspected can't rule out pulmonary HTN (10) Mass of left thigh: Plan: u/s of L thigh negative for focal lesion/mass both thighs look symmetric appears to be lymphedema (11) DM II (diabetes mellitus, type II), controlled: Plan: Cont glargine and aspart pharmacy providing glycemic oversight BSGs under reasonable control Hba1c 6.9% this admission Chronically on Tresiba, Novolog with meals, and Ozempic (12) Hypothyroidism: Plan: Continue levothyroxine TSH minimally elevated will advise a recheck of TSH in 1 month and if still high then increase synthroid dose as outpatient at that time (13) Liver fibrosis: Plan: Follows with [facility] Hepatology LFTs wnl Suspect some of her abdominal findings and LE edema could be from liver disease ammonia wnl (14) Anxiety: Plan: Continue buspar and Clomipramine but will family and marriage counsellor patient that latter causes considerable side effects including weight gain, etc Consider d/c of TCA (15) HTN (hypertension): Plan: Continue metoprolol HOLD lisinopril due to POPEYE (16) Hyponatremia: Plan: Na 136 resolved (17) Hand arthritis: Plan: b/l hands severe the exam findings look most c/w OA x-rays of hands - findings could be consistent with OA, RA, or psoriatic arthritis I don't see any inflammatory arthritis findings on exam follow she has not complained of any pain this week to me (18) CKD (chronic kidney disease) stage 3, GFR 30-59 ml/min: Plan: baseline renal function --- records from PCP -- Cr 1.5 in 03/2023 Plan and daughter updated at bedside today dispo - SNF in [place] vs home with HH Admission and Anticipated Discharge Date Admission Date: July 05, 2023 Subjective pt w/o any new complaints daughter/ at bedside she has changed her mind again about rehab since the rehab in [place] is no longer an option she doesn't wish to go to another location worried it is too far for her & family to visit (referrals made to [place]) now stating she wants to go home /daughter have not seen her work with PT tried the nasal pillows last pm - only wore it <3 hours willing to try again family encouraging her to do the same tele overnight wnl Review of Systems Review of Systems: gen - eating well cv - no chest pain pulm - baseline ROBLES GI - no N/V, moving her bowels, no diarrhea Physical Exam Physical Exam: gen - obese, NAD, sitting in chair comfortably neck - suspected JVD even sitting upright at 90 degrees mouth - no thrush, MMM heart - RRR, s1 s2, 2/6 BLAKE LSB lungs - CTA b/l abd - very distended, body wall edema/lymphedema with ? ascites (vs central obesity), NT, BS+ ext - 1+ edema b/l / lymphedema, pulses 2+ b/l skin - dressings intact right foot; dressings intact right benjamin - I did not remove them today psych - a/o x 3 Results & Data Results & Data Vital Signs (Past 12 Hours) Vital Signs Temp Pulse Pulse Pulse Resp BP BP 07/12/23 19:37 36.5 C 81 17 123/57 L 07/12/23 16:37 77 07/12/23 15:30 37.0 C 91 H 16 113/75 07/12/23 11:30 36.6 C 81 18 152/74 H Pulse Ox O2 Del Method O2 Flow Rate 07/12/23 19:37 91 Room Air 07/12/23 16:37 07/12/23 15:30 92 Room Air 07/12/23 11:30 94 Nasal Cannula 1.5 Laboratory Results Laboratory Results - last 24 hr 07/11/23 07/12/23 07/12/23 20:19 06:18 08:29 PT 24.8 H INR 2.4 H Sodium 136 Potassium 4.5 Chloride 102 Carbon Dioxide 29 Anion Gap 5 BUN 43 H Creatinine 1.69 H Est Cr Clr Drug Dosing 38.8 Est GFR ( Amer) 35.1 Est GFR (Non-Af Amer) 30.2 BUN/Creatinine Ratio 25.4 H Glucose 131 H POC Glucose 120 H 139 H Calcium 9.3 07/12/23 07/12/23 07/12/23 12:17 17:05 20:05 PT INR Sodium Potassium Chloride Carbon Dioxide Anion Gap BUN Creatinine Est Cr Clr Drug Dosing Est GFR ( Amer) Est GFR (Non-Af Amer) BUN/Creatinine Ratio Glucose POC Glucose 170 H 117 H 147 H Calcium PG Care Time/CCT Total # of Minutes Spent Total Time Spent with Patient: Total time spent is greater than 50% in coordination of care (as documented) at patient's floor/unit and/or counseling patient: Coding Level of Care Code 28652 SUB INP/OBS CARE 2/35MIN Diagnoses Hyperkalemia E87.5 Acute kidney injury N17.9 Noninfected skin tear of right leg S81.811A Osteomyelitis of right foot M86.9 Osteomyelitis type: unspecified type Factor V Leiden D68.51 RVF (right ventricular failure) I50.810 JACLYN (obstructive sleep apnea) G47.33 Adrenal insufficiency E27.40 Hypoxia R09.02 Mass of left thigh R22.42 DM II (diabetes mellitus, type II), controlled E11.9 Diabetes mellitus complication status: with neurologic complications Hypothyroidism E03.9 Liver fibrosis K74.00 Anxiety F41.9 HTN (hypertension) I10 Hyponatremia E87.1 Hand arthritis M19.049 CKD (chronic kidney disease) stage 3, GFR 30-59 ml/min N18.30 (4) Osteomyelitis of right foot Osteomyelitis type: unspecified type Qualified Code(s): M86.9 - Osteomyelitis, unspecified (11) DM II (diabetes mellitus, type II), controlled Diabetes mellitus complication status: with neurologic complications
[2023-07-12] MEDS: CLOMIPRAMINE HCL 25 MG CAPSULE PO SCH (20:24)
[2023-07-13] MEDS: LEVOTHYROXINE SODIUM 175 MCG TABLET PO SCH (06:17)
[2023-07-13 07:32] LABS: BUN Creatinine Ratio 24.5 (10-20); Calcium 9.5 mg/dl (8.6-10.3); Creatinine Clr Calc Pharmacy 32.2 ml/min; Est GFR (African American) 27.9 ml/min; Est GFR (Non-African American) 24.1 ml/min; Potassium 5.1 mmol/L (3.5-5.1)
[2023-07-13 07:43] LABS: INR 2.2 (0.9-1.1); Prothrombin Time 23.1 Seconds (9.0-12.0)
[2023-07-13] MEDS ORDERED: PATIROMER CALCIUM SORBITEX 8.4 GM PACK PO ONE (08:00)
--- NOTE | 2023-07-13 08:37 | CT Scan Report ---
CT OF THE ABDOMEN AND PELVIS WITHOUT CONTRAST CLINICAL HISTORY: Acute/chronic kidney failure, abd bloating. COMPARISON STUDY: No previous studies for comparison. TECHNIQUE: Axial images of the abdomen and pelvis were obtained without IV contrast. Images were revi ewed in the axial, sagittal, and coronal planes. Automated exposure control was utilized for the fady dy. A dose lowering technique was utilized adhering to the principles of ALARA. FINDINGS: Lung bases are unremarkable. Mitral annular calcification is incidentally noted. No pneumat osis, free air or portal venous gas is present. No renal, ureteral or bladder calculi are present. Th ere is no hydronephrosis. Moderate right renal atrophy is noted. 6.6 cm fat-containing focus arising from the lateral cortex of the midpole of the right kidney contains hyperdense foci. This favors post surgical change. There is an adjacent water attenuation 2 cm focus within the midpole of the right ki dney which is suboptimally assessed on this unenhanced exam. There is no evidence for a bowel obstruc tion. No bowel wall thickening is identified on unenhanced exam. There are multiple mildly enlarged b ilateral iliac chain lymph nodes. Index right external iliac lymph node on image 277 of 349 measures 3.8 x 2.2 cm. A 4.2 cm hypodense focus arising from the uterine fundus is present. There is skin thic kening and subcutaneous stranding of the lower anterior abdominal wall. No associated fluid collectio n is present. There is no associated soft tissue gas. No acute fractures within the visual skeletal s tructures are present. There is no biliary or pancreatic ductal dilatation. Left breast density conta ining multiple coarse calcifications is likely benign. IMPRESSION: 1. No urinary calculi or hydronephrosis. 2. 6.6 cm fat-containing focus arising from the midpole of the right kidney which contains hyperdense foci. This favors postsurgical change. 3. Skin thickening and subcutaneous thickening of the anterior abdominal wall. This could reflect toshia lulitis or edema. No fluid collection to suggest abscess. No soft tissue gas. 4. 4.2 cm hypodense focus arising from the uterine fundus. This may reflect a fibroid. Nonemergent pe lvic ultrasound is recommended for further evaluation. 5. Multiple mildly enlarged bilateral iliac chain lymph nodes. A benign etiology is favored however t hese are indeterminate and a follow-up CT of the abdomen and pelvis in 6 months to ensure stability i s recommended. ACT 112: Negative or not required by law. Electronically signed by: Enrique Humphrey M.D. 07/13/2023 8:35 AM
[2023-07-13] MEDS: GABAPENTIN 300 MG CAP PO SCH ×3 (08:50→20:35)
[2023-07-13] MEDS: PANTOprazole 40 MG TAB PO SCH (08:50)
[2023-07-13] MEDS: busPIRone 5 MG TAB PO SCH ×3 (08:50→20:37)
[2023-07-13] MEDS: METOPROLOL TARTRATE 50 MG TAB PO SCH ×2 (08:50→20:37)
[2023-07-13] MEDS: DOXYCYCLINE HYCLATE 100 MG CAP PO SCH ×2 (08:51→20:36)
[2023-07-13] MEDS: ADVANCED PROBIOTIC 1250 MG CAPSULE PO SCH (08:51)
[2023-07-13] MEDS: HYDROCORTISONE 10 MG TAB PO SCH ×2 (08:51→16:19)
[2023-07-13] MEDS: FAMOTIDINE 20 MG TAB PO SCH ×2 (08:52→20:36)
[2023-07-13] MEDS: EUCERIN CR 120 GM JAR EXT SCH ×2 (08:52→20:38)
[2023-07-13] MEDS: MICONAZOLE NITRATE POWDER 85 GM EXT SCH ×2 (08:53→20:38)
[2023-07-13] MEDS: INSULIN ASPART PER UNIT CHARGE SC SCH ×4 (09:01→20:26)
[2023-07-13] MEDS: LANTUS PER UNIT CHARGE SC SCH (09:01)
[2023-07-13] MEDS: CIPROFLOXACIN 250 MG TAB PO SCH ×2 (09:03→22:01)
--- NOTE | 2023-07-13 13:17 | Hospitalist Progress Note ---
Date of Service July 13, 2023 Assessment & Plan (1) Acute kidney injury: Plan: Cr 1.3 at admission baseline creatinine 03/2023 - 1.5 per records obtained from PCP's office Cr has fluctuated considerably throughout the admission Cr 2 today uncertain why the rise CT a/p today w/o obstruction POPEYE due to vancomycin? ATN in setting of her R 2nd toe infection? BP-related? other? avoid nephrotoxic agents hold SHAHID hold K supplement hold lasix again u/a bland no rash to suggest interstitial nephritis BMP am once again (2) Hyperkalemia: Plan: 2nd to #1 patiromer x 1 today BMP am (3) Noninfected skin tear of right leg: Plan: traumatic right benjamin wound care consult for recs appreciated cont wound care / dressings (4) Osteomyelitis of right foot: Plan: osteomyelitis of 2nd toe - s/p amputation by Dr. Kelly 07/07/23 s/p vancomycin and cefepime IV - stopped yesterday, transitioned to PO cipro with doxy per Dr Kelly had good margins pathology report - no osteo seen on the slides viewed, thus clear margins obtained since margins are clear then she presumably has source control and IV antibiotics are not needed moving forward intra-op culture grew coag neg staph most COUNTER HELP species at [facility] based on biogram are sens to doxycycline, etc previous cultures from right foot (via [facility] system) with the following -- culture taken late June 2023 - * 4+ klebsiella pneumoniae -- sens to cipro * 2+ morganella morganii -- sens to cipro * 4+ enterobacter cloacae complex --sens to cipro * 1+ proteus vulgaris -- no sensitivities listed * 2+ enterococcus faecalis -- sens to PCN thus - 7-10 days of cipro for gram neg (day #4 today), and 7-10 days of doxy for COUNTER HELP (day #4) cont wound care (5) Factor V Leiden: Plan: Hx of DVT/PE 30+ years ago on chronic coumadin currently on heparin drip home coumadin dosing was 2mg every day except 4mg on Saturdays s/p 5mg dose on 07/07 s/p 5mg dose on 07/08 s/p 4mg 07/09 s/p 2mg 07/10 s/p 2mg 07/11 s/p 2mg 07/12 repeat 2mg again today INR 2.2 today repeat INR am (6) RVF (right ventricular failure): Plan: Moderately decreased RV function on echo 07/06/23 Suspect her abdominal swelling is ascites/body wall edema from her chronic cor pulmonale She was taking lasix at home - dose uncertain Her lasix here was increased to 40mg/day but with such her creatinine asha to 1.9 suggesting intravascular volume depletion Cont to hold lasix (7) JACLYN (obstructive sleep apnea): Plan: has not been using any CPAP or BIPAP at home will need to see her sleep provider post-discharge trial of CPAP w/ nasal pillows did not go well could consider overnight oximetry to qualify her for night-time O2 in aury of CPAP since she doesn't tolerate non-invasive Rx (8) Adrenal insufficiency: Plan: Chronically on 15 mg PO hydrocortisone am and 5 HS at baseline Cont home doses (9) Hypoxia: Plan: resolved, but borderline at times; will need 2-step at d/c obesity-hypoventilation syndrome suspected can't rule out pulmonary HTN (10) Mass of left thigh: Plan: u/s of L thigh negative for focal lesion/mass both thighs look symmetric appears to be lymphedema (11) DM II (diabetes mellitus, type II), controlled: Plan: Cont glargine and aspart pharmacy providing glycemic oversight BSGs under reasonable control Hba1c 6.9% this admission Chronically on Tresiba, Novolog with meals, and Ozempic (12) Hypothyroidism: Plan: Continue levothyroxine TSH minimally elevated will advise a recheck of TSH in 1 month and if still high then increase syn throid dose as outpatient at that time (13) Liver fibrosis: Plan: Follows with 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 that latter causes considerable side effects including weight gain, etc Consider d/c of TCA (15) HTN (hypertension): Plan: Continue metoprolol HOLD lisinopril due to POPEYE (16) Hyponatremia: Plan: resolved (17) Hand arthritis: Plan: b/l hands severe the exam findings look most c/w OA x-rays of hands - findings could be consistent with OA, RA, or psoriatic arthritis I don't see any inflammatory arthritis findings on exam follow she has not complained of any pain this week to me (18) CKD (chronic kidney disease) stage 3, GFR 30-59 ml/min: Plan: baseline renal function --- records from PCP -- Cr 1.5 in 03/2023 today's Cr 2 uncertain why her Cr asha overnight CT a/p without any obstruction (19) History of kidney cancer: Plan: right sided s/p partial nephrectomy on right [facility] CT a/p today with what appears to be post-op change/scar on the right kidney she should f/u with urology for this - has not had f/u in several years patient made aware of this finding (20) Abnormal finding present on diagnostic imaging of uterus: Plan: ?fibroid on CT today? will need pelvic u/s and communications tower climber f/u for this patient made aware of this finding Plan updated at bedside today dispo - SNF [facility] in [place]? vs home with HH made social work aware of pt's interest in [facility] d/c tele ok for med/surg Admission and Anticipated Discharge Date Admission Date: July 05, 2023 Subjective no events overnight feels good at bedside during my visit she worked with PT this am I received a [place] communication from [place] the therapist that her gait is still quite impaired remains fall risk etc rehab still advised pt is from the [place] area and apparently a family member works at [facility] they have rehab unit there she is willing to go there denies any new complaints she fell asleep last pm before respiratory could put the CPAP on Review of Systems Review of Systems: gen - eating well; no fevers GI - no abd pain/nausea/emesis pulm - no dyspnea at rest; ROBLES - baseline CV - chronic edema; no chest pain Physical Exam Physical Exam: gen - obese, NAD, sitting in chair; at bedside neck - suspected JVD mouth - no thrush, MMM heart - RRR, s1 s2, 2/6 BLAKE LSB lungs - CTA b/l, decreased BS bases abd - very distended, body wall edema/lymphedema, obesity, NT, BS+ ext - lymphedema both legs, pulses 2+ b/l skin - dressings intact right foot; dressings intact right benjamin psych - a/o x 3 Results & Data Results & Data Vital Signs (Past 12 Hours) Vital Signs Temp Pulse Pulse Resp BP Pulse Ox O2 Del Method 11/11/23 11:54 36.4 C L 65 18 146/65 H 92 Room Air 07/13/23 08:00 Room Air 07/13/23 07:51 36.5 C 78 18 145/82 H 92 Room Air 07/13/23 07:00 64 07/13/23 03:40 36.5 C 73 20 168/82 H 91 Room Air Laboratory Results Laboratory Results - last 24 hr 07/12/23 07/12/23 07/13/23 17:05 20:05 06:28 PT 23.1 H INR 2.2 H Sodium 138 Potassium 5.1 Chloride 102 Carbon Dioxide 33 H Anion Gap 3 BUN 50 H Creatinine 2.04 H D Est Cr Clr Drug Dosing 32.2 Est GFR ( Amer) 27.9 Est GFR (Non-Af Amer) 24.1 BUN/Creatinine Ratio 24.5 H Glucose 135 H POC Glucose 117 H 147 H Calcium 9.5 Hepatitis C Ab (EIA) Pending 07/13/23 07/13/23 08:41 12:08 PT INR Sodium Potassium Chloride Carbon Dioxide Anion Gap BUN Creatinine Est Cr Clr Drug Dosing Est GFR ( Amer) Est GFR (Non-Af Amer) BUN/Creatinine Ratio Glucose POC Glucose 124 H 124 H Calcium Hepatitis C Ab (EIA) Diagnostic Findings Abdomen/Pelvis CT 07/13/23 07:41 CT OF THE ABDOMEN AND PELVIS WITHOUT CONTRAST CLINICAL HISTORY: Acute/chronic kidney failure, abd bloating. COMPARISON STUDY: No previous studies for comparison. TECHNIQUE: Axial images of the abdomen and pelvis were obtained without IV contrast. Images were reviewed in the axial, sagittal, and coronal planes. Automated exposure control was utilized for the study. A dose lowering technique was utilized adhering to the principles of ALARA. FINDINGS: Lung bases are unremarkable. Mitral annular calcification is incidentally noted. No pneumatosis, free air or portal venous gas is present. No renal, ureteral or bladder calculi are present. There is no hydronephrosis. Moderate right renal atrophy is noted. 6.6 cm fat-containing focus arising from the lateral cortex of the midpole of the right kidney contains hyperdense foci. This favors postsurgical change. There is an adjacent water attenuation 2 cm focus within the midpole of the right kidney which is suboptimally assessed on this unenhanced exam. There is no evidence for a bowel obstruction. No bowel wall thickening is identified on unenhanced exam. There are multiple mildly enlarged bilateral iliac chain lymph nodes. Index right external iliac lymph node on image 277 of 349 measures 3.8 x 2.2 cm. A 4.2 cm hypodense focus arising from the uterine fundus is present. There is skin thickening and subcutaneous stranding of the lower anterior abdominal wall. No associated fluid collection is present. There is no associated soft tissue gas. No acute fractures within the visual skeletal structures are present. There is no biliary or pancreatic ductal dilatation. Left breast density containing multiple coarse calcifications is likely benign. IMPRESSION: 1. No urinary calculi or hydronephrosis. 2. 6.6 cm fat-containing focus arising from the midpole of the right kidney which contains hyperdense foci. This favors postsurgical change. 3. Skin thickening and subcutaneous thickening of the anterior abdominal wall. This could reflect cellulitis or edema. No fluid collection to suggest abscess. No soft tissue gas. 4. 4.2 cm hypodense focus arising from the uterine fundus. This may reflect a fibroid. Nonemergent pelvic ultrasound is recommended for further evaluation. 5. Multiple mildly enlarged bilateral iliac chain lymph nodes. A benign etiology is favored however these are indeterminate and a follow-up CT of the abdomen and pelvis in 6 months to ensure stability is recommended. ACT 112: Negative or not required by law. Electronically signed by: Enrique Humphrey M.D. 07/13/2023 8:35 AM PG Care Time/CCT Total # of Minutes Spent Total Time Spent with Patient: Total time spent is greater than 50% in coordination of care (as documented) at patient's floor/unit and/or counseling patient: Coding Level of Care Code 35006 SUB INP/OBS CARE 3/50MIN Diagnoses Acute kidney injury N17.9 Hyperkalemia E87.5 Noninfected skin tear of right leg S81.811A Osteomyelitis of right foot M86.9 Osteomyelitis type: unspecified type Factor V Leiden D68.51 RVF (right ventricular failure) I50.810 JACLYN (obstructive sleep apnea) G47.33 Adrenal insufficiency E27.40 Hypoxia R09.02 Mass of left thigh R22.42 DM II (diabetes mellitus, type II), controlled E11.9 Diabetes mellitus complication status: with neurologic complications Hypothyroidism E03.9 Liver fibrosis K74.00 Anxiety F41.9 HTN (hypertension) I10 Hyponatremia E87.1 Hand arthritis M19.049 CKD (chronic kidney disease) stage 3, GFR 30-59 ml/min N18.30 History of kidney cancer Z85.528 Abnormal finding present on diagnostic imaging of uterus R93.89 (4) Osteomyelitis of right foot Osteomyelitis type: unspecified type Qualified Code(s): M86.9 - Osteomyelitis, unspecified (11) DM II (diabetes mellitus, type II), controlled Diabetes mellitus complication status: with neurologic complications
[2023-07-13] MEDS: WARFARIN SOD 2 MG TAB PO SCH (16:19)
[2023-07-13] MEDS: CLOMIPRAMINE HCL 25 MG CAPSULE PO SCH (20:37)
[2023-07-13] MEDS: traZODone HCL 50 MG TAB PO PRN (21:27)
[2023-07-14] MEDS: LEVOTHYROXINE SODIUM 175 MCG TABLET PO SCH (05:34)
[2023-07-14 06:42] LABS: BUN Creatinine Ratio 29.1 (10-20); Calcium 9.6 mg/dl (8.6-10.3); Creatinine Clr Calc Pharmacy 38.2 ml/min; Est GFR (African American) 34.3 ml/min; Est GFR (Non-African American) 29.6 ml/min; Potassium 5.3 mmol/L (3.5-5.1)
[2023-07-14 07:02] LABS: INR 2.2 (0.9-1.1)
[2023-07-14] MEDS ORDERED: PATIROMER CALCIUM SORBITEX 8.4 GM PACK PO ONE (07:15)
[2023-07-14] MEDS: LANTUS PER UNIT CHARGE SC SCH (09:10)
[2023-07-14] MEDS: INSULIN ASPART PER UNIT CHARGE SC SCH ×4 (09:11→21:23)
[2023-07-14] MEDS: CIPROFLOXACIN 250 MG TAB PO SCH ×2 (10:33→20:35)
[2023-07-14] MEDS: busPIRone 5 MG TAB PO SCH ×3 (10:33→20:34)
[2023-07-14] MEDS: DOXYCYCLINE HYCLATE 100 MG CAP PO SCH ×2 (10:33→20:33)
[2023-07-14] MEDS: FAMOTIDINE 20 MG TAB PO SCH ×2 (10:34→21:14)
[2023-07-14] MEDS: GABAPENTIN 300 MG CAP PO SCH ×3 (10:34→20:35)
[2023-07-14] MEDS: EUCERIN CR 120 GM JAR EXT SCH ×2 (10:34→20:39)
[2023-07-14] MEDS: ADVANCED PROBIOTIC 1250 MG CAPSULE PO SCH (10:35)
[2023-07-14] MEDS: HYDROCORTISONE 10 MG TAB PO SCH ×2 (10:35→15:56)
[2023-07-14] MEDS: METOPROLOL TARTRATE 50 MG TAB PO SCH ×2 (10:36→20:36)
[2023-07-14] MEDS: PANTOprazole 40 MG TAB PO SCH (10:36)
[2023-07-14] MEDS: MICONAZOLE NITRATE POWDER 85 GM EXT SCH ×2 (10:37→20:40)
[2023-07-14] MEDS: WARFARIN SOD 2 MG TAB PO SCH (15:55)
[2023-07-14] MEDS ORDERED: SODIUM ZIRCONIUM CYCLOSILICATE 10 GM PACKET PO ONE (17:30)
[2023-07-14] MEDS ORDERED: SODIUM ZIRCONIUM CYCLOSILICATE 10 GM PACKET PO SCH (17:35)
--- NOTE | 2023-07-14 20:08 | Hospitalist Progress Note ---
Date of Service July 14, 2023 Assessment & Plan (1) Hyperkalemia: Plan: recurrent hyperkalemia 5.3 this am s/p patiromer despite patiromer the K level has risen further to 5.9 this afternoon STAT EKG obtained - my reading - NSR, normal QRS interval - but peaked T waves particularly anteriorly ordered sodium zirconium cyclosilicate 10mg TID, first dose now plan -- move to PCU to watch on telemetry; q6h BMPs with first at 9pm tonight calcium gluconate 1gm IV x 1 now HCO3 level on BMP already high thus defer on such I spoke informally with nephrology regarding the hyperkalemia the etiology of the recurrent hyperkalemia is uncertain lisinopril has been on hold for over a week, no K supplements, no ARBs, no bactrim use, etc. creatinine did increase to 2 yesterday, but was 1.7 today (baseline 1.5) this small bump in creatinine would be unusual to cause such a rapid rise in the K level may need formal nephrology consultation tomorrow but will hold off for now change diet to low K diet (2) Acute kidney injury: Plan: Cr 1.3 at admission baseline creatinine 03/2023 - 1.5 per records obtained from PCP's office Cr has fluctuated considerably throughout the admission uncertain why the constant fluctuation CT a/p w/o obstruction POPEYE due to vancomycin? ATN in setting of her R 2nd toe infection? BP-related? other? avoid nephrotoxic agents hold SHAHID hold K supplement hold lasix again Low K diet u/a bland no rash to suggest interstitial nephritis serial BMPs (3) Noninfected skin tear of right leg: Plan: traumatic right benjamin wound care consult for recs appreciated cont wound care / dressings (4) Osteomyelitis of right foot: Plan: osteomyelitis of 2nd toe - s/p amputation by Dr. 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 species at [facility] based on biogram are sens to doxycycline, etc previous cultures from right foot (via [facility] system) with the following -- culture taken late June 2023 - * 4+ klebsiella pneumoniae -- sens to cipro * 2+ morganella morganii -- sens to cipro * 4+ enterobacter cloacae complex --sens to cipro * 1+ proteus vulgaris -- no sensitivities listed * 2+ enterococcus faecalis -- sens to PCN thus - 7-10 days of cipro for gram neg (day #5 today), and 7-10 days of doxy for SOLAR INSTALLATION CREW SUPERVISOR (day #5) cont wound care (5) Factor V Leiden: Plan: Hx of DVT/PE 30+ years ago on chronic coumadin currently on heparin drip home coumadin dosing was 2mg every day except 4mg on Saturdays s/p 5mg dose on 07/07 s/p 5mg dose on 07/08 s/p 4mg 07/09 s/p 2mg 07/10 s/p 2mg 07/11 s/p 2mg 07/12 s/p 2mg 07/13 s/p 2mg 07/14 INR 2.2 today repeat INR am (6) RVF (right ventricular failure): Plan: Moderately decreased RV function on echo 07/06/23 Suspect her abdominal swelling is ascites/body wall edema from her chronic cor pulmonale She was taking lasix at home - dose uncertain Her lasix here was increased to 40mg/day but with such her creatinine asha to 1.9 suggesting intravascular volume depletion Cont to hold lasix (7) JACLYN (obstructive sleep apnea): Plan: has not been using any CPAP or BIPAP at home will need to see her sleep provider post-discharge trial of CPAP w/ nasal pillows did not go well could consider overnight oximetry to qualify her for night-time O2 in aury of CPAP since she doesn't tolerate non-invasive Rx (8) Adrenal insufficiency: Plan: Chronically on 15 mg PO hydrocortisone am and 5 HS at baseline Cont home doses would adding florinef help with hyperkalemia? (9) Hypoxia: Plan: resolved, but borderline at times; will need 2-step at d/c obesity-hypoventilation syndrome suspected can't rule out pulmonary HTN (10) Mass of left thigh: Plan: u/s of L thigh negative for focal lesion/mass both thighs look symmetric appears to be lymphedema (11) DM II (diabetes mellitus, type II), controlled: Plan: Cont glargine and aspart pharmacy providing glycemic oversight BSGs under reasonable control Hba1c 6.9% this admission Chronically on Tresiba, Novolog with meals, and Ozempic (12) Hypothyroidism: Plan: Continue levothyroxine TSH minimally elevated will advise a recheck of TSH in 1 month and if still high then increase synthroid dose as outpatient at that time (13) Liver fibrosis: Plan: Follows with [facility] Hepatology LFTs wnl ammonia wnl (14) Anxiety: Plan: Continue buspar and Clomipramine but 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 planning 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 that latter causes considerable side effects including weight gain, etc d/c TCA (15) HTN (hypertension): Plan: Continue metoprolol HOLD lisinopril due to POPEYE (16) Hyponatremia: Plan: resolved (17) Hand arthritis: Plan: b/l hands severe the exam findings look most c/w OA x-rays of hands - findings could be consistent with OA, RA, or psoriatic arthritis I don't see any inflammatory arthritis findings on exam follow she has not complained of any pain this week to me (18) CKD (chronic kidney disease) stage 3, GFR 30-59 ml/min: Plan: baseline renal function --- records from PCP -- Cr 1.5 in 03/2023 today's Cr 1.7--2 uncertain why her Cr continues to have wide fluctuations CT a/p without any obstruction (19) History of kidney cancer: Plan: right sided s/p partial nephrectomy on right [facility] CT a/p today with what appears to be post-op change/scar on the right kidney she should f/u with urology for this - has not had f/u in several years patient made aware of this finding (20) Abnormal finding present on diagnostic imaging of uterus: Plan: ?fibroid on CT a/p? will need pelvic u/s and backend developer f/u for this patient made aware of this finding Plan updated at bedside today dispo - SNF [facility] in [place]? vs home with HH vs [facility]; pt's first choice is [facility] transferring to tele care discussed informally with on-call nephrology Admission and Anticipated Discharge Date Admission Date: July 05, 2023 Subjective pt resting in the recliner no complaints feels good eating well legs feel "cold" but denies fevers/rigors at bedside she now mentions going to [facility]? but would prefer [facility] K this am was 5.3 despite patiromer the K asha to 5.9 this afternoon EKG this afternoon with peaked T's pt transferred to PCU Review of Systems Review of Systems: cv - no chest pain pulm - baseline ROBLES unchanged GI - no abd pain/nausea/emesis/diarrhea Physical Exam Physical Exam: gen - obese, NAD, sitting in recliner; at bedside neck - no JVD at 45 degrees mouth - no thrush, MM slightly dry heart - RRR, s1 s2, 2/6 BLAKE LSB lungs - CTA b/l, decreased BS bases ; no rales abd - very distended, body wall edema/lymphedema unchanged, obesity, NT, BS+ ext - lymphedema both legs, pulses 2+ b/l skin - dressings intact right foot; dressings intact right benjamin - they were just changed prior to my arrival; I did not change them psych - a/o x 3 Results & Data Results & Data Vital Signs (Past 12 Hours) Vital Signs Temp Pulse Resp BP Pulse Ox O2 Del Method 07/14/23 19:28 36.5 C 80 20 167/82 H 99 Room Air 07/14/23 15:18 36.3 C L 61 18 124/69 93 Room Air 07/14/23 10:31 72 155/76 H Laboratory Results Laboratory Results - last 24 hr 07/14/23 07/14/23 07/14/23 06:09 07:38 11:37 PT 23.0 H INR 2.2 H Sodium 136 Potassium 5.3 H Chloride 102 Carbon Dioxide 30 Anion Gap 4 BUN 50 H Creatinine 1.72 H D Est Cr Clr Drug Dosing 38.2 Est GFR ( Amer) 34.3 Est GFR (Non-Af Amer) 29.6 BUN/Creatinine Ratio 29.1 H Glucose 131 H POC Glucose 118 H 193 H Calcium 9.6 07/14/23 07/14/23 16:34 16:44 PT INR Sodium Potassium 5.9 H Chloride Carbon Dioxide Anion Gap BUN Creatinine Est Cr Clr Drug Dosing Est GFR ( Amer) Est GFR (Non-Af Amer) BUN/Creatinine Ratio Glucose POC Glucose 124 H Calcium Diagnostic Findings EKG - my reading - NSR, peaked T waves, QRS duration remains wnl PG Care Time/CCT Total # of Minutes Spent Total Time Spent with Patient: Total time spent is greater than 50% in coordination of care (as documented) at patient's floor/unit and/or counseling patient: Coding Level of Care Code 54045 SUB INP/OBS CARE 3/50MIN Diagnoses Hyperkalemia E87.5 Acute kidney injury N17.9 Noninfected skin tear of right leg S81.811A Osteomyelitis of right foot M86.9 Osteomyelitis type: unspecified type Factor V Leiden D68.51 RVF (right ventricular failure) I50.810 JACLYN (obstructive sleep apnea) G47.33 Adrenal insufficiency E27.40 Hypoxia R09.02 Mass of left thigh R22.42 DM II (diabetes mellitus, type II), controlled E11.9 Diabetes mellitus complication status: with neurologic complications Hypothyroidism E03.9 Liver fibrosis K74.00 Anxiety F41.9 HTN (hypertension) I10 Hyponatremia E87.1 Hand arthritis M19.049 CKD (chronic kidney disease) stage 3, GFR 30-59 ml/min N18.30 History of kidney cancer Z85.528 Abnormal finding present on diagnostic imaging of uterus R93.89 (4) Osteomyelitis of right foot Osteomyelitis type: unspecified type Qualified Code(s): M86.9 - Osteomyelitis, unspecified (11) DM II (diabetes mellitus, type II), controlled Diabetes mellitus complication status: with neurologic complications
[2023-07-14] MEDS ORDERED: STAT IV/IM STA (20:11)
[2023-07-14] MEDS ORDERED: CALCIUM GLUCONATE 10% 1,000 MG in SODIUM CHLOR 0.9% MINI-B 50 ML IV ONE (20:15)
[2023-07-14] MEDS: SIMVASTATIN 40 MG TAB PO SCH (21:14)
[2023-07-14 21:35] LABS: BUN Creatinine Ratio 27.2 (10-20); Calcium 9.7 mg/dl (8.6-10.3); Creatinine Clr Calc Pharmacy 32.5 ml/min; Est GFR (African American) 28.3 ml/min; Est GFR (Non-African American) 24.4 ml/min; Potassium 5.4 mmol/L (3.5-5.1)
[2023-07-14] MEDS: SODIUM ZIRCONIUM CYCLOSILICATE 10 GM PACKET PO SCH (22:59)
[2023-07-15 04:26] LABS: BUN Creatinine Ratio 29.8 (10-20); Calcium 9.3 mg/dl (8.6-10.3); Creatinine Clr Calc Pharmacy 36.3 ml/min; Est GFR (African American) 32.3 ml/min; Est GFR (Non-African American) 27.8 ml/min; Potassium 4.7 mmol/L (3.5-5.1)
[2023-07-15] MEDS: LEVOTHYROXINE SODIUM 175 MCG TABLET PO SCH (05:55)
--- NOTE | 2023-07-15 08:08 | Electrocardiogram Report ---
Test Reason : Blood Pressure : / mmHG Vent. Rate : 076 BPM Atrial Rate : 076 BPM P-R Int : 144 ms QRS Dur : 080 ms QT Int : 380 ms P-R-T Axes : 074 009 053 degrees QTc Int : 427 ms Normal sinus rhythm Low voltage QRS Borderline ECG No previous ECGs available Confirmed by Oliver Herzog ([id number]) on 07/15/2023 8:07:57 AM Referred By: REFERRED SELF Confirmed By:Oliver Herzog
[2023-07-15] MEDS: ADVANCED PROBIOTIC 1250 MG CAPSULE PO SCH (09:05)
[2023-07-15] MEDS: METOPROLOL TARTRATE 50 MG TAB PO SCH ×2 (09:05→21:14)
[2023-07-15] MEDS: FAMOTIDINE 20 MG TAB PO SCH ×2 (09:05→21:13)
[2023-07-15] MEDS: PANTOprazole 40 MG TAB PO SCH (09:05)
[2023-07-15] MEDS: SODIUM ZIRCONIUM CYCLOSILICATE 10 GM PACKET PO SCH ×2 (09:05→09:24)
[2023-07-15] MEDS: HYDROCORTISONE 10 MG TAB PO SCH ×2 (09:05→17:03)
[2023-07-15] MEDS: GABAPENTIN 300 MG CAP PO SCH ×3 (09:06→21:13)
[2023-07-15] MEDS: DOXYCYCLINE HYCLATE 100 MG CAP PO SCH ×2 (09:06→21:14)
[2023-07-15] MEDS: CIPROFLOXACIN 250 MG TAB PO SCH ×2 (09:06→21:14)
[2023-07-15] MEDS: busPIRone 5 MG TAB PO SCH ×3 (09:06→21:13)
[2023-07-15] MEDS: MICONAZOLE NITRATE POWDER 85 GM EXT SCH ×2 (09:09→21:16)
[2023-07-15] MEDS: EUCERIN CR 120 GM JAR EXT SCH ×2 (09:09→21:15)
[2023-07-15] MEDS: LANTUS PER UNIT CHARGE SC SCH (09:17)
[2023-07-15] MEDS: INSULIN ASPART PER UNIT CHARGE SC SCH ×4 (09:18→21:16)
[2023-07-15 10:43] LABS: BUN Creatinine Ratio 31.5 (10-20); Calcium 9.5 mg/dl (8.6-10.3); Creatinine Clr Calc Pharmacy 39.1 ml/min; Est GFR (African American) 35.3 ml/min; Est GFR (Non-African American) 30.5 ml/min; Potassium 4.7 mmol/L (3.5-5.1)
[2023-07-15 11:04] LABS: INR 2.3 (0.9-1.1)
[2023-07-15] MEDS: WARFARIN SOD 2 MG TAB PO SCH (17:02)
[2023-07-15] MEDS: SIMVASTATIN 40 MG TAB PO SCH (21:13)
--- NOTE | 2023-07-15 21:47 | Hospitalist Progress Note ---
Date of Service July 15, 2023 Assessment & Plan (1) Hyperkalemia: Plan: recurrent hyperkalemia seen throughout this prolonged hospitalization peak K was 5.9 on 07/14/23 s/p patiromer without any effect transferred to PCU evening of 07/14/23 s/p multiple doses of Lokelma since last evening K level now 4.7 this am will continue with Lokelma 1 dose daily continue low K diet BMP in am I spoke informally with nephrology regarding the hyperkalemia the etiology of the recurrent hyperkalemia is uncertain lisinopril has been on hold for over a week, no K supplements, no ARBs, no bactrim use, etc. creatinine did increase to 2 over the weekend (baseline 1.5) but this should not cause such a rise as seen strongly consider nephrology consult for this recurrent issue (2) Acute kidney injury: Plan: Cr 1.3 at admission baseline creatinine 03/2023 - 1.5 per records obtained from PCP's office Cr has fluctuated considerably throughout the admission uncertain why the constant fluctuation CT a/p w/o obstruction Cr peak over the weekend was 2, now 1.6 this am avoid nephrotoxic agents no further use of SHAHID no further K supplement hold lasix again Low K diet u/a bland no rash to suggest interstitial nephritis serial BMPs (3) Noninfected skin tear of right leg: Plan: traumatic right benjamin wound care consult for recs appreciated cont wound care / dressings (Aquacel Ag, etc) (4) Osteomyelitis of right foot: Plan: osteomyelitis of 2nd toe - s/p amputation by Dr. 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 PROFESSOR species at [facility] based on biogram are sens to doxycycline, etc previous cultures from right foot (via [facility] system) with the following -- culture taken late June 2023 - * 4+ klebsiella pneumoniae -- sens to cipro * 2+ morganella morganii -- sens to cipro * 4+ enterobacter cloacae complex --sens to cipro * 1+ proteus vulgaris -- no sensitivities listed * 2+ enterococcus faecalis -- sens to PCN thus - 7-10 days of cipro for gram neg (day #6 today), and 7-10 days of doxy for CHEMISTRY PROFESSOR (day #6) cont wound care of note - sutures remain intact at amputation site; will need f/u with Dr Kelly post-discharge (5) Factor V Leiden: Plan: Hx of DVT/PE 30+ years ago on chronic coumadin currently on heparin drip home coumadin dosing was 2mg every day except 4mg on Saturdays s/p 5mg dose on 07/07 s/p 5mg dose on 07/08 s/p 4mg 07/09 s/p 2mg 07/10 and ongoing since INR 2.3 today repeat INR am (6) RVF (right ventricular failure): Plan: Moderately decreased RV function on echo 07/06/23 Abdominal distension is body wall edema from her chronic cor pulmonale She was taking lasix at home - dose uncertain Her lasix here was increased to 40mg/day but with such her creatinine asha to 1.9 suggesting intravascular volume depletion Cont to hold lasix due to fluctuating creatinine remains relatively compensated brief run of NSVT last pm but this was in the setting of hyperkalemia (7) JACLYN (obstructive sleep apnea): Plan: has not been using any CPAP or BIPAP at home will need to see her sleep provider post-discharge if she is willing to try CPAP or BIPAP again trial of CPAP w/ nasal pillows did not go well this admission could consider overnight oximetry to qualify her for night-time O2 in aury of CPAP since she doesn't tolerate non-invasive Rx (8) Adrenal insufficiency: Plan: Chronically on 15 mg PO hydrocortisone am and 5 HS at baseline Cont home doses would adding florinef help with hyperkalemia? (9) Hypoxia: Plan: resolved, but borderline at times; will need 2-step at d/c obesity-hypoventilation syndrome suspected can't rule out pulmonary HTN (10) Mass of left thigh: Plan: u/s of L thigh negative for focal lesion/mass both thighs look symmetric appears to be lymphedema (11) DM II (diabetes mellitus, type II), controlled: Plan: Cont glargine and aspart pharmacy providing glycemic oversight BSGs under reasonable control Hba1c 6.9% this admission Chronically on Tresiba, Novolog with meals, and Ozempic (12) Hypothyroidism: Plan: Continue levothyroxine TSH minimally elevated at 5 will advise a recheck of TSH in 1 month and if still high then increase synthroid dose as outpatient at that time (13) Liver fibrosis: Plan: Follows with [facility] Hepatology LFTs wnl ammonia wnl (14) Anxiety: Plan: Continue buspar and Clomipramine but will peer 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 that latter causes considerable side effects including weight gain, etc I did stop the clomipramine (15) HTN (hypertension): Plan: Continue metoprolol Lisinopril STOPPED due to hyperkalemia, fluctuating creatinine, etc (16) Hyponatremia: Plan: resolved (17) Hand arthritis: Plan: b/l hands severe the exam findings look most c/w OA x-rays of hands - findings could be consistent with OA, RA, or psoriatic arthritis I don't see any inflammatory arthritis findings on exam follow she has not complained of any pain this week to me (18) CKD (chronic kidney disease) stage 3, GFR 30-59 ml/min: Plan: baseline renal function --- records from PCP -- Cr 1.5 in 03/2023 Cr ranging 1.6--2 over the last few days uncertain why her Cr continues to have wide fluctuations CT a/p without any obstruction strongly consider nephrology consultation prior to discharge (19) History of kidney cancer: Plan: right sided s/p partial nephrectomy on right [facility] CT a/p this admission with what appears to be post-op change/scar on the right kidney she should f/u with urology for this - has not had f/u in several years patient made aware of this finding (20) Abnormal finding present on diagnostic imaging of uterus: Plan: ?fibroid on CT a/p? will need pelvic u/s and edge runner f/u for this patient made aware of this finding Plan updated at bedside again today I expressed my concerns to pt & her about returning home as she is only partial WB on right foot (with surgical shoe in place) she is deconditioned & very weak she will be alone for lengthy stretches of time as her works outside the home ideally she got to rehab but keeps changing her mind on a nearly daily basis dispo - [facility] in [place]? vs home with HH vs [facility]; pt's [facility] choice is [facility] -- but again she keeps changing her mind I discussed her dispo with Mima from social work Admission and Anticipated Discharge Date Admission Date: July 05, 2023 Subjective following transfer from [facility] to [facility] last pm about 183 she had a 9 beat run of NSVT on telemetry about 1930 for the rest of the night NO arrhythmias seen patient denies any complaints today she feels well she is eating/drinking well she states she has changed her mind again about going to rehab now wants to return home with her and have home health/PT/OT pt's does work outside their home and thus she is alone for chunks of time apparently their daughter lives just a few miles from them by report the pt's grand-daughter was in some sort of accident and is now hospitalized at [facility] Review of Systems Review of Systems: cv - no chest pain pulm - no dyspnea at rest; ROBLES but at baseline GI - no diarrhea Physical Exam Physical Exam: gen - obese, NAD, sitting in chair neck - no JVD mouth - no thrush, MM dry heart - RRR, s1 s2, 2/6 BLAKE LSB lungs - CTA b/l abd - very distended, body wall edema/lymphedema unchanged, obesity, NT, BS+ ext - lymphedema both legs, pulses 2+ b/l skin - dressings removed from right foot and right leg; right benjamin wound - lateral mid-benjamin - 3cm in length, mild yellow exudate overlying the ulcer, serous drainage, no surrounding cellulitis; right foot - 2nd toe absent, multiple sutures in place, no cellulitis/drainage psych - a/o x 3 Results & Data Results & Data Vital Signs (Past 12 Hours) Vital Signs Temp Pulse Pulse Resp BP Pulse Ox O2 Del Method 07/15/23 20:25 37.1 C 89 20 170/68 H 96 Room Air 07/15/23 15:28 36.6 C 66 18 122/77 94 Room Air 07/15/23 15:00 65 07/15/23 11:36 36.7 C 68 19 131/71 92 Room Air Laboratory Results Laboratory Results - last 24 hr 07/13/23 07/15/23 07/15/23 06:28 03:08 08:36 PT INR Sodium 136 Potassium 4.7 Chloride 102 Carbon Dioxide 30 Anion Gap 4 BUN 54 H Creatinine 1.81 H Est Cr Clr Drug Dosing 36.3 Est GFR ( Amer) 32.3 Est GFR (Non-Af Amer) 27.8 BUN/Creatinine Ratio 29.8 H Glucose 133 H POC Glucose 194 H Calcium 9.3 Hepatitis C Ab (EIA) NON-REACTIVE 07/15/23 07/15/23 07/15/23 09:46 11:17 16:02 PT 24.0 H INR 2.3 H Sodium 135 L Potassium 4.7 Chloride 101 Carbon Dioxide 28 Anion Gap 6 BUN 53 H Creatinine 1.68 H Est Cr Clr Drug Dosing 39.1 Est GFR ( Amer) 35.3 Est GFR (Non-Af Amer) 30.5 BUN/Creatinine Ratio 31.5 H Glucose 221 H POC Glucose 138 H 109 H Calcium 9.5 Hepatitis C Ab (EIA) 07/15/23 20:23 PT INR Sodium Potassium Chloride Carbon Dioxide Anion Gap BUN Creatinine Est Cr Clr Drug Dosing Est GFR ( Amer) Est GFR (Non-Af Amer) BUN/Creatinine Ratio Glucose POC Glucose 168 H Calcium Hepatitis C Ab (EIA) PG Care Time/CCT Total # of Minutes Spent Total Time Spent with Patient: Total time spent is greater than 50% in coordination of care (as documented) at patient's floor/unit and/or counseling patient: Coding Level of Care Code 66230 SUB INP/OBS CARE 3/50MIN Diagnoses Hyperkalemia E87.5 Acute kidney injury N17.9 Noninfected skin tear of right leg S81.811A Osteomyelitis of right foot M86.9 Osteomyelitis type: unspecified type Factor V Leiden D68.51 RVF (right ventricular failure) I50.810 JACLYN (obstructive sleep apnea) G47.33 Adrenal insufficiency E27.40 Hypoxia R09.02 Mass of left thigh R22.42 DM II (diabetes mellitus, type II), controlled E11.9 Diabetes mellitus complication status: with neurologic complications Hypothyroidism E03.9 Liver fibrosis K74.00 Anxiety F41.9 HTN (hypertension) I10 Hyponatremia E87.1 Hand arthritis M19.049 CKD (chronic kidney disease) stage 3, GFR 30-59 ml/min N18.30 History of kidney cancer Z85.528 Abnormal finding present on diagnostic imaging of uterus R93.89 (4) Osteomyelitis of right foot Osteomyelitis type: unspecified type Qualified Code(s): M86.9 - Osteomyelitis, unspecified (11) DM II (diabetes mellitus, type II), controlled Diabetes mellitus complication status: with neurologic complications
[2023-07-16] MEDS: LEVOTHYROXINE SODIUM 175 MCG TABLET PO SCH (06:16)
[2023-07-16 06:28] LABS: INR 2.5 (0.9-1.1); Prothrombin Time 25.5 Seconds (9.0-12.0)
[2023-07-16 06:32] LABS: Calcium 9.5 mg/dl (8.6-10.3); Potassium 4.4 mmol/L (3.5-5.1)
[2023-07-16 06:38] LABS: BUN Creatinine Ratio 31.2 (10-20); Creatinine Clr Calc Pharmacy 37.8 ml/min; Est GFR (African American) 34.1 ml/min; Est GFR (Non-African American) 29.4 ml/min
[2023-07-16] MEDS: LANTUS PER UNIT CHARGE SC SCH (07:55)
[2023-07-16] MEDS: INSULIN ASPART PER UNIT CHARGE SC SCH ×2 (07:55→12:05)
[2023-07-16] MEDS: CIPROFLOXACIN 250 MG TAB PO SCH (08:37)
[2023-07-16] MEDS: busPIRone 5 MG TAB PO SCH ×2 (08:37→13:31)
[2023-07-16] MEDS: DOXYCYCLINE HYCLATE 100 MG CAP PO SCH (08:37)
[2023-07-16] MEDS: EUCERIN CR 120 GM JAR EXT SCH (08:38)
[2023-07-16] MEDS: GABAPENTIN 300 MG CAP PO SCH ×2 (08:38→13:31)
[2023-07-16] MEDS: FAMOTIDINE 20 MG TAB PO SCH (08:38)
[2023-07-16] MEDS: HYDROCORTISONE 10 MG TAB PO SCH (08:39)
[2023-07-16] MEDS: ADVANCED PROBIOTIC 1250 MG CAPSULE PO SCH (08:40)
[2023-07-16] MEDS: PANTOprazole 40 MG TAB PO SCH (08:41)
[2023-07-16] MEDS: MICONAZOLE NITRATE POWDER 85 GM EXT SCH (08:41)
[2023-07-16] MEDS ORDERED: SODIUM ZIRCONIUM CYCLOSILICATE 10 GM PACKET PO SCH (11:00)
--- NOTE | 2023-07-16 19:15 | Discharge Summary ---
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 Kelly), due to failed outpatient treatment of right first and second toe OM. She remained stable in the ED. Labs were significant for a leukocytosis of 13 with neutrophil predominance of 10, cr of 1.34 (unsure of previous baseline), sodium of 134, and procal of 0.12. Xray of the right foot was read as "1. Limited exam secondary to overlying casting material. 2. Age- indeterminate osseous erosions of the first interphalangeal joint and second distal phalangeal tuft. Correlate clinically to exclude osteomyelitis. 3. Healed chronic fracture deformity of the fifth metatarsal. ". Prior to admission the patient was given a dose of vancomycin and cefepime. The ED staff spoke with Dr. Kelly who is planning on taking the patient to the OR for toe amputation on 07/07. At the time of the exam the patient was sitting in bed in no acute distress with her sitting bedisde, history was obtained from both. The patient explains that she follows with Dr. Kelly outpatient. He has been treating her for OM of the right first and second toes over the past month. The patient has diabetic neuropathy in her BL LE's and noticed small wounds on the right first/second toes approximately 3-4 weeks ago. She has been tried on multiple oral antibiotics over this time and was recently switched to PO Ciprofloxacin and Bactrim. Dr. Kelly saw her in the office today for follow-up and explained that he will need to take her to the OR for likely amputation of both toes. She denies recent fever, chest pain, abd pain, nausea, vomiting, diarrhea, dysuria, hematuria, melena, and recent trauma. We took extra time to discuss her PMH as she is new to our system and we have no information on her. She confirms that she has a history of adrenal insufficiency and requires stress-dosed steroids prior to surgeries. She explains that she has been on Warfarin for 30+ years due to factor 5 leiden and previous DVT/PE. I called and spoke to her daughter to obtain more information. Her daughter explains that the patient follows with [facility] and is diagnosed with stage 3-4 Liver fibrosis but has not been diagnosed with cirrhosis to this point. The patient confirms a diagnosis of JACLYN and used to use HS CPAP but can no longer tolerate the masks. I explained that she will be higher risk for surgery due to her complex PMH so we will need to do further assessment/evaluation prior to going to the OR. We discussed code status, the patient expresses that she wishes to be a full code. Principal Diagnosis diabetic foot infection, POPEYE, hyperkalemia, chronic adrenal insufficiency, right heart failure Discharge Exam PHYSICAL EXAMINATION Last 24h vital signs reviewed, see documentation in flowsheet General: sitting up in chair HEENT: Normocephalic, atraumatic, pupils round and equal, sclerae anicteric, no conjunctival injection, moist mucus membranes Lungs: Normal respiratory effort. Heart: Abdomen: large pannus with edema Extremities: Warm, dry, well-perfused. bilateral LE edema, R foot s/p 2nd toe amp, sutures intact no drainage surrounding cellulitis resolved Severe bilateral lower extremity edema unchanged, some weeping of edema left calf, skin tear or venous stasis ulcer right lateral calf Neuro: AOx4 , face symmetric, moves 4 extremities equally Psych: Normal affect and behavior Discharge Data Allergies Allergy/AdvReac Type Severity Reaction Status Date / Time gluten Allergy Unknown Unknown Unverified 07/08/23 08:21 Consultations 07/05/23 19:11 ED Decision to Admit Stat 07/05/23 20:11 Consult Podiatry Routine Procedures Performed Operation Date: 07/07/23 08:30 Actual Procedures p Right Second Toe Amputation(Right) - Robby Kelly DPM, MS Ordered Studies 07/05/23 20:24 US extremity non-vascular ltd Routine 07/13/23 07:41 CT Abd and Pelvis [CT abd pelvis wo con] Routine Hospital Course (1) Hyperkalemia: potassium was normal on admission, peak K was 5.9 on 07/14/23 coincided with Cr near 2 s/p patiromer without any effect, several doses of lokelma potassium normal at 4.4 on 07/16 -was on oral potassium 10 meq daily from 07/06-07/09 -lisinopril has been held since 11/4, discontinued on discharge -oral potassium supplements discontinued on discharge -possibly related mostly to POPEYE (resolved) and increase in metoprolol dose - can be an issue if underlying diabetic RTA - metoprolol decreased to previous home dose. IV heparin was stopped as of 07/11 so less likely to be a factor -would recommend repeat BMP on follow up in primary care (2) Acute kidney injury: Cr 1.3 at admission baseline creatinine 03/2023 - 1.5 per records obtained from PCP's office Cr has fluctuated considerably throughout the admission uncertain why the constant fluctuation CT a/p w/o obstruction Cr peak over the weekend was 2, improved to 1.7 close to recent baseline u/a bland no rash to suggest interstitial nephritis (3) Noninfected skin tear of right leg: traumatic right benjamin wound care consult for recs appreciated cont wound care / dressings (Aquacel Ag, etc) (4) Osteomyelitis of right foot: osteomyelitis of 2nd toe - s/p amputation by Dr. Kelly 07/07/23 s/p vancomycin and cefepime IV earlier in the stay transitioned to PO cipro with doxy on 07/10/23 - complete one week more of po after discharge per Dr Kelly had good margins pathology report - no osteo seen on the slides viewed, thus clear margins obtained cont wound care cont use of surgical shoe to keep pressure off R forefoot of note - sutures remain intact at amputation site; will need f/u with Dr Kelly post-discharge (5) Factor V Leiden: Hx of DVT/PE 30+ years ago on chronic coumadin -bridged with heparin drip this admission -INR therapeutic on home dose of coumadin despite multiple days of overlap with antibiotics, thus unlikely to get supratherapeutic INR on home dose after discharge (6) RVF (right ventricular failure): Moderately decreased RV function on echo 07/06/23 Abdominal distension is body wall edema from her chronic cor pulmonale She was taking lasix at home - dose uncertain Her lasix here was increased to 40mg/day but with such her creatinine asha to 1.9 suggesting intravascular volume depletion -resumed home dose of lasix at discharge (7) JACLYN (obstructive sleep apnea): has not been using any CPAP or BIPAP at home because was intolerant of masks trial of nasal pillow in hospital - was more comfortable though unclear whether effective - she is willing to reconsider treatment -explained role of untreated JACLYN on her right heart failure and edema, encouraged her to follow up with sleep medicine (8) Adrenal insufficiency: Chronically on 15 mg PO hydrocortisone am and 5 HS at baseline Cont home doses (9) Hypoxia: obesity-hypoventilation syndrome suspected can't rule out pulmonary HTN - PA pressure not able to be estimated on TTE sats mid to low 90s on room air day of discharge (10) Mass of left thigh: mass was ruled out u/s of L thigh negative for focal lesion/mass both thighs look symmetric appears to be lymphedema -follow up with Dr. Kelly's office for her usual edema wraps (11) DM II (diabetes mellitus, type II), controlled: Hba1c 6.9% this admission Chronically on Tresiba, Novolog with meals, and Ozempic - resumed on discharge (12) Hypothyroidism: Continue levothyroxine TSH minimally elevated at 5 will advise a recheck of TSH in 1 month and if still high then increase synthroid dose as outpatient at that time (13) Liver fibrosis: Follows with [facility] LFTs wnl ammonia wnl (14) Anxiety: Continue buspar and Clomipramine (15) HTN (hypertension): Continue metoprolol Lisinopril STOPPED due to hyperkalemia, fluctuating creatinine, etc BP labile in hospital - often normal sometimes elevated Amlodipine is unattractive option given her severe edema Follow up in primary care (16) Hyponatremia: resolved (17) Hand arthritis: b/l hands severe the exam findings look most c/w OA x-rays of hands - findings could be consistent with OA, RA, or psoriatic arthritis I don't see any inflammatory arthritis findings on exam follow she has not complained of any pain this week to me (18) CKD (chronic kidney disease) stage 3, GFR 30-59 ml/min: baseline renal function --- records from PCP -- Cr 1.5 in 03/2023 Cr ranging 1.6--2 over the last few days uncertain why her Cr continues to have wide fluctuations - may be very sensitive to volume status CT a/p without any obstruction (19) History of kidney cancer: right sided s/p partial nephrectomy on right [facility] CT a/p this admission with what appears to be post-op change/scar on the right kidney she should f/u with urology for this - has not had f/u in several years patient made aware of this finding (20) Abnormal finding present on diagnostic imaging of uterus: uterine mass possibly fibroid was incidental finding on CT abdomen/pelvis 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 Total Time Total Time Spent Total Time Spent (In Minutes): 55 minutes spent coordinating care for discharge Discharge Plan Discharge Items Patient Disposition: Home - Home Health Services Reason For Visit: OM OF THE RIGHT FOOT Discharge Diagnosis: right 2nd toe osteomyelitis Condition on Discharge: Fair Activity: As commented below Activity Comment: wear surgical shoe R foot until completely healed Non-emergency contact: Primary Care Provider and Surgeon Call non-emergency contact if: you have any medication questions and your symptoms worsen Follow-up/Referrals: Fanta Potts MD [Primary Care Provider] - (I spoke with the primary care office, and they stated they will contact the patient directly to schedule follow up appointment. ) Robby Kelly DPM, MS [Physician] - 07/23/23 10:15 am Diet: Carb Consistent or DM2 Addtl Attending Provider Instructions: You had your 2nd toe removed. You were treated for toe and skin infection of your foot -take ciprofloxacin and doxycycline (antibiotics) for 10 more doses -make an appointment with your rand sewer for 1 week from now -wear the surgical show until cleared by your rand sewer for a shoe You had high blood potassium and slightly worse kidney function in the hospital - which is improving -do NOT take lisinopril until cleared by your doctor -do NOT take potassium -you can take furosemide 2 tabs in the morning, or 1 tab in the morning and 1 in the early afternoon -make an appointment with your doctor and get labs drawn (for potassium and kidney function) next week -talk to your doctor about scheduling an ultrasound of your uterus to follow up the abnormal CT scan - there is a spot there and hopefully it is a fibroid, however, sometimes a uterine mass is a type of cancer. If it is not viewable on ultrasound, you might have to get a repeat CT scan to make sure it is not growing in the future Make an appointment with your sleep medicine doctor as soon as possible to discuss treatment of your sleep apnea - this is critical to protect your heart. The right side of your heart is weakened because of low oxygen at night, this is making your leg swelling worse Pending Studies at Discharge: No Stand-Alone Forms: My [facility], Smoking Cessation Medications and DC Order Prescriptions: New ciprofloxacin HCl 250 mg Tablet 250 mg PO BID Qty: 10 0RF doxycycline hyclate 100 mg Capsule 100 mg PO BID Qty: 10 0RF Continued All Day Allergy (cetirizine) 10 mg capsule 10 mg PO DAILY furosemide 20 mg tablet 20 mg PO BID ropinirole 3 mg tablet 3 mg PO DAILY triamcinolone acetonide 0.1 % cream 1 applic topical BID insulin aspart U-100 [Novolog U-100 Insulin aspart] 100 unit/mL solution 1 sliding scale dose subcut USEASDIRECTD levothyroxine 175 mcg tablet 175 mcg PO QAM omeprazole 40 mg capsule,delayed release(DR/EC) 40 mg PO DAILY simvastatin 40 mg tablet 40 mg PO HS famotidine 20 mg tablet 20 mg PO BID buspirone 10 mg tablet 10 mg PO BID Rx Instructions: At 0900 and at noon gabapentin 300 mg capsule 300 mg PO TID hydrocortisone 10 mg tablet 15 mg PO BID Rx Instructions: Takes 15 mg in the am and 5 mg HS azelastine 137 mcg (0.1 %) aerosol,spray 1 spray INTRANASAL BID albuterol sulfate 90 mcg/actuation HFA aerosol inhaler 2 puff INHALATION .Q4-6H PRN (Reason: Acute Bronchospasm) clomipramine 25 mg capsule 25 mg PO HS metoprolol tartrate 25 mg tablet 25 mg PO BID cholecalciferol (vitamin D3) [Vitamin D3] 50 mcg (2,000 unit) Tablet 50 mcg PO DAILY insulin degludec [Tresiba FlexTouch U-100] 100 unit/mL (3 mL) insulin pen 30 unit SUBCUT DAILY Ozempic 0.25 mg or 0.5 mg (2 mg/3 mL) pen injector 0.5 mg SUBCUT WK insulin aspart U-100 [Novolog U-100 Insulin aspart] 100 unit/mL Solution 0 - 50 unit subcut TID Rx Instructions: 17units before breakfast, 17 units before lunch and 12 units before dinner per sliding scale buspirone 10 mg Tablet 20 mg PO HS warfarin 2 mg tablet 2 mg PO DIRECTED Qty: 1 0RF Rx Instructions: 1 tab on Sat, , , , Sat, Sat and 2 tabs on Sat Held lisinopril 40 mg tablet 40 mg PO DAILY Hold Instructions: hold until restarted by primary care Discontinued buspirone 10 mg tablet 10 mg PO BID hydrocortisone 10 mg tablet 10 mg PO TID metoprolol tartrate 25 mg tablet 25 mg PO BID simvastatin 40 mg tablet 40 mg PO DAILY clomipramine 25 mg capsule 25 mg PO DAILY buspirone 10 mg tablet 10 mg PO BID cetirizine 10 mg tablet 10 mg PO DAILY ciprofloxacin HCl 500 mg tablet 500 mg PO BID Rx Instructions: Prescription was picked up on 07/04/23. Start Date 07/04/23 - End Date 07/11/23 sulfamethoxazole-trimethoprim 800-160 mg tablet 1 tab PO BID Rx Instructions: Prescription was picked up on 07/04/23. Start Date 07/04/23 - End Date 07/14/23 lisinopril 40 mg tablet 40 mg PO DAILY potassium chloride 10 mEq tablet,ER particles/crystals 10 meq PO DAILY furosemide 20 mg tablet 20 mg PO DAILY warfarin 1 mg Tablet 1 mg PO DIRECTED Rx Instructions: Saturday, Saturday, Saturday, Saturday, , Saturday Discharge Orders: Discharge Order (Routine); Ordered 07/16/23 Ordered By: Shila Ramírez/Other Patient Handouts: Nutrition for Wound Healing, Managing Type 2 Diabetes Admission Data Admit Date/Time: 07/05/23 20:09 Attending Provider: Shila Fowler Admit Provider: Virginia Schwartz Primary Care Provider: Fanta Potts Other Providers: Virginia Schwartz; Robby Kelly; [place]; [facility]; [facility]; [place],[facility] Other Interventions: Discharge Summary Assessment (RN) Last Done: 07/16/23 16:08 Coding Level of Care Code 43572 INP/OBS DISCH >30 MIN Diagnoses Hyperkalemia E87.5 Acute kidney injury N17.9 Noninfected skin tear of right leg S81.811A Osteomyelitis of right foot M86.9 Osteomyelitis type: unspecified type Factor V Leiden D68.51 RVF (right ventricular failure) I50.810 JACLYN (obstructive sleep apnea) G47.33 Adrenal insufficiency E27.40 Hypoxia R09.02 Mass of left thigh R22.42 DM II (diabetes mellitus, type II), controlled E11.9 Diabetes mellitus complication status: with neurologic complications Hypothyroidism E03.9 Liver fibrosis K74.00 Anxiety F41.9 HTN (hypertension) I10 Hyponatremia E87.1 Hand arthritis M19.049 CKD (chronic kidney disease) stage 3, GFR 30-59 ml/min N18.30 History of kidney cancer Z85.528 Abnormal finding present on diagnostic imaging of uterus R93.89
== END 2023-07-16 16:10 | disposition home health service (06) | DRG 617 ==
LOC: ED 16:48 → SUATTDRO 20:09 → 2E 20:09 → MERGE 20:09 → 2E 22:10 → 2N 07-07 17:42 → 3E 07-13 23:58 → 2E 07-14 19:07